=== PATIENT | female | born 1960 | race Caucasian/White ===

== ENCOUNTER 2022-12-03 12:28 | Inpatient (IN) ==
[2022-12-03 13:24] LABS: Basophils # (auto) 0.05 K/uL (0-0.2); Basophils % (auto) 0.4 %; Eosinophils # (auto) 0.07 K/uL (0-0.50); Eosinophils % (auto) 0.6 %; Hematocrit (blood only) 44.1 % (37.0-47.0); Hemoglobin 14.4 g/dl (12.0-16.0); Immature Granulocytes # (auto) 0.04 K/uL (0.01-0.20); Immature Granulocytes % (auto) 0.3 %; Lymphocytes # (auto) 2.08 K/uL (1.2-3.4); Lymphocytes % (auto) 16.7 %; Mean Corpuscular Hemoglobin 28.2 pg (25.0-34.0); Mean Corpuscular Hgb Conc 32.7 g/dL (32.0-36.0); Mean Corpuscular Volume 86.3 fL (80.0-100.0); Mean Platelet Volume 11.6 fL (9.4-12.4); Monocytes # (auto) 0.96 K/uL (0.11-0.59); Monocytes % (auto) 7.7 %; Neutrophils # (auto) 9.23 K/uL (1.40-6.50); Neutrophils % (auto) 74.3 %; Platelet Count 218 K/uL (130-400); RDW Coefficient of Variation 14.9 % (11.5-14.5); RDW Standard Deviation 46.8 fL (36.4-46.3); Red Blood Count 5.11 M/uL (4.20-5.40); White Blood Count 12.43 K/ul (4.8-10.8)
--- NOTE | 2022-12-03 13:40 | XRay Report ---
XR shoulder RT min 2V routine HISTORY: 62 years-old Female R shoulder pain acute pain of the right shoulder COMPARISON: Chest radiograph of same day TECHNIQUE: 3 views of the right shoulder FINDINGS: Moderate glenohumeral and AC joint osteoarthritis. No acute fracture, dislocation or opaque foreign b lalita. Cardiomegaly. IMPRESSION: No acute fracture or dislocation. ACT 112: Negative or not required by law. The above report was generated using voice recognition software. It may contain grammatical, syntax o r spelling errors. Electronically signed by: Zane Candelario M.D. 12/03/2022 1:39 PM
--- NOTE | 2022-12-03 13:41 | XRay Report ---
XR chest 1V portable HISTORY: Chest pain, nonspecific COMPARISON: Chest 08/15/2012. FINDINGS: No pneumothorax. No pleural effusions. The cardiac silhouette is borderline enlarged. This remains unchanged. Hazy appearance to lung bases is likely due to overlapping soft tissue. Otherwise, no focal lung consolidations to suggest a pneumonia. No evidence for pulmonary edema. There are old, healed right anterior rib fractures noted. IMPRESSION: No acute process. ACT 112: Negative or not required by law. Electronically signed by: Christopher Wells M.D. 12/03/2022 1:40 PM
[2022-12-03 13:49] LABS: Anion Gap 6 (3-11); Blood Urea Nitrogen 7 mg/dl (6-23); Calcium 9.5 mg/dl (8.6-10.3); Carbon Dioxide 26 mmol/L (21-32); Chloride 104 mmol/L (98-107); Creatinine Clr Calc Pharmacy 96.5 ml/min; Est GFR (African American) 83.9 ml/min; Est GFR (Non-African American) 72.4 ml/min; Glucose 105 mg/dl (70-99(Fasting)); Lipase 10 U/L (11-82); Sodium 136 mmol/L (136-145)
--- NOTE | 2022-12-03 15:10 | Emergency Department Note ---
History of Present Illness General Chief complaint: Arrhythmia/Palpitations Stated complaint: PALPITATIONS,DOC REF Time Seen by Provider: 12/03/22 12:38 History of Present Illness Provider complaint: Right-sided chest and arm pain Onset (ago): week(s) 1 62-year-old female presents emergency department with right-sided arm and right- sided chest pain. 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 She states her pain is worse with lifting the baby or lifting heavy things. She does report occasional shortness of breath. No current chest pain or shortness of breath. No left-sided arm pain. Patient reports that putting ice and a TENS device over her right shoulder area improves her symptoms. No recent travel. No exogenous hormone usage. No hemoptysis. No recent injuries or traumas. Patient states she went to go see her PCP about this who did an EKG and was concerned with this finding so sent her here out of caution to make sure everything with her heart was okay. Home Medications Medication Instructions Recorded Confirmed Type promethazine 25 mg tablet 25 mg PO TID PRN nausea and 08/03/22 12/03/22 Rx vomiting #30 tabs acetaminophen 500 mg tablet 1,000 mg PO DIRECTED PRN 12/03/22 12/03/22 History (Tylenol Extra Strength) PAIN/FEVER Allergies Allergy/AdvReac Type Severity Reaction Status Date / Time No Known Allergies Allergy Verified 12/03/22 15:21 Past Med/Surg History Medical History Ulcerative colitis Surgical History S/P cholecystectomy S/P complete hysterectomy S/P tonsillectomy Family History Grandmother (Maternal) Breast cancer Uncle Myocardial infarction Other Arthritis Asthma Cancer Hypertension Obstructive sleep apnea Urticaria Denies family history of Ovarian cancer Prostate cancer Colorectal cancer Social History Smoking Status: Current every day smoker Tobacco Type: Cigarettes Do You Dip or Chew Tobacco: No; Hx Alcohol Use: No Hx Substance Use: No Preferred Language: Sri Lankan marital status: Current Living Situation: Spouse current occupational status: disabled Feels Safe at Home: Yes Childhood Exposure to Second-Hand Smoke: Yes Dental Care, Regularly: No Physical Activity Frequency: Does not Exercise Seatbelt Use: always Sunscreen Use: Yes Physical Exam Vital Signs Vital Signs - 24 hr 12/03/22 12:33 12/03/22 12:53 12/03/22 13:01 Temperature 36.9 C Temperature Source Temporal Artery Scan Pulse Rate 84 79 Pulse Rate [Right Finger] Respiratory Rate 18 16 Respiratory Effort / Characteristics Non-Labored Spontaneous Respiratory Depth Normal Respiratory Pattern Regular Blood Pressure 170/96 H Blood Pressure [Right Arm] Blood Pressure Mean 120 Blood Pressure Mean [Right Arm] Pulse Oximetry 94 98 Oxygen Delivery Method Room Air Room Air Sepsis Recent Fever Within 48 Hours No Sepsis New/Unexplained Change in Mental Status N/A Sepsis Action Taken by Nursing No Action Required 12/03/22 14:04 12/03/22 15:00 12/03/22 16:28 Temperature Temperature Source Pulse Rate Pulse Rate [Right Finger] 82 77 84 Respiratory Rate 20 16 22 Respiratory Effort / Characteristics Non-Labored Non-Labored Respiratory Depth Normal Normal Respiratory Pattern Blood Pressure Blood Pressure [Right Arm] 174/107 H 167/117 H 151/108 H Blood Pressure Mean Blood Pressure Mean [Right Arm] 129 133 122 Pulse Oximetry 95 94 94 Oxygen Delivery Method Room Air Room Air Sepsis Recent Fever Within 48 Hours Sepsis New/Unexplained Change in Mental Status Sepsis Action Taken by Nursing Physical Exam HENT: Exam performed. -Head: Normocephalic and atraumatic. -Right Ear: External ear normal. No mastoid erythema -Left Ear: External ear normal. No mastoid erythema EYES: Conjunctivae and EOM are normal. Right eye exhibits no discharge. Left eye exhibits no discharge. No scleral icterus. NECK: Normal range of motion. Neck supple. No JVD present. No spinous process tenderness present. No tracheal deviation and normal range of motion present. CV: Normal rate, regular rhythm, normal heart sounds and intact distal pulses. There is no peripheral edema. Palpable radial pulses bue. PULM/CHEST: Effort normal and breath sounds normal. No respiratory distress. No stridor. She has no wheezes. She has no rales. -Chest Wall: She exhibits no tenderness. No pain on palpation of the right chest or right shoulder. No pain with movement of the right upper extremity. ABD: The abdomen is soft. There is no tenderness. There is no rebound, no guarding. MUSC/SKEL: Normal range of motion. There is no peripheral edema, tenderness or deformity. LYMPH: No cervical adenopathy. NEURO: Motor and sensation grossly intact. SKIN: Skin is warm and dry. She is not diaphoretic. PSYCH: She has a normal mood and affect. Behavior is normal. Judgment and thought content normal. Course Course 1238: The patient was evaluated in room B12. A complete history and physical exam was performed Cardiac monitoring: An order was placed for continuous cardiac monitoring. The monitor shows a rate of 80 with sinus rhythm interpreted by az 1352: Patient does have a new left bundle branch block and there are no EKGs in our system to compare to. Patient's troponin is elevated. Patient denies any chest pain or difficulty breathing at this time. Discussed the patient's case with Dr. Pimentel interventional cardiology on-call. He reviewed the patient's EKG he agrees that the patient should be admitted and no heart alert should be called at this time. He states that there are no contraindications to start the patient on heparin. D-dimer coagulation studies repeat troponin and potassium are still pending on the patient. 1600: Vital signs stable. Patient reporting no chest pain at this time. D- dimer within normal limits. Potassium within normal limits. Delta troponin is elevated. Patient be started on heparin and admitted to the [facility] team. Administered Medications Heparin Sodium/Dextrose (Heparin Sodium/Dextrose) 25,000 units in 500 mls @ 20 mls/hr IV .Q24H [facility]; Protocol Stop: 01/02/23 15:59 Last Admin: 12/03/22 16:36 Dose: 1,000 units/hr, 20 mls/hr Documented By: TYRONE Co-signed By: JAC Discontinued Medications Aspirin (Aspirin 81 Mg Chew) 324 mg PO NOW STA Stop: 12/03/22 15:53 Last Admin: 12/03/22 16:27 Dose: 324 mg Documented By: TYRONE Heparin Sodium (Porcine) (Heparin Sod (Porcine) 1000 Unit/Ml) 1 units IV NOW ON E Stop: 12/03/22 15:57 Last Admin: 12/03/22 16:35 Dose: 4,000 units Documented By: TYRONE Co-signed By: JAC Heparin Sodium/Dextrose (Heparin Iv Adult Wt-Based Low-Dose With Bolus Protocol) 1 each IV NOW STA; Protocol Stop: 12/03/22 15:42 Last Admin: 12/03/22 16:40 Dose: Not Given Documented By: NRB Critical Care Time Critical Care Time: Yes Total Critical Care Time: 60 I have personally spent greater than 60 minutes of critical care time in the direct management of this patient. This includes bedside care, interpretation of diagnostic studies, and testing, discussion with consultants, patient, and family members, and other required patient management activities. This 60 minutes is in excess of all separately billable procedures. Medical Decision Making Medical Records Attestation: I reviewed the patient's medical records. No previous EKGs on our records. Laboratory Data Attestation: I reviewed the patient's lab results. 12/03/22 12:45 12/03/22 12:45 Lab Results 12/03/22 12/03/22 12/03/22 Range/Units 12:45 12:45 12:45 WBC 12.43 H (4.8-10.8) K/ul RBC 5.11 (4.20-5.40) M/uL Hgb 14.4 (12.0-16.0) g/dl Hct 44.1 (37.0-47.0) % MCV 86.3 (80.0-100.0) fL MCH 28.2 (25.0-34.0) pg MCHC 32.7 (32.0-36.0) g/dL RDW Std Deviation 46.8 H (36.4-46.3) fL RDW Coeff of Essie 14.9 H (11.5-14.5) % Plt Count 218 (130-400) K/uL MPV 11.6 (9.4-12.4) fL Immature Gran % (Auto) 0.3 % Neut % (Auto) 74.3 % Lymph % (Auto) 16.7 % Emanuel % (Auto) 7.7 % Eos % (Auto) 0.6 % Baso % (Auto) 0.4 % Neut # (Auto) 9.23 H (1.40-6.50) K/uL Lymph # (Auto) 2.08 (1.2-3.4) K/uL Emanuel # (Auto) 0.96 H (0.11-0.59) K/uL Eos # (Auto) 0.07 (0-0.50) K/uL Baso # (Auto) 0.05 (0-0.2) K/uL Immature Gran # (Auto) 0.04 (0.01-0.20) K/uL PT Cancelled INR Cancelled APTT Cancelled PTT Ratio Cancelled D-Dimer Cancelled Sodium 136 (136-145) mmol/L Potassium TNP Chloride 104 (98-107) mmol/L Carbon Dioxide 26 (21-32) mmol/L Anion Gap 6 (3-11) BUN 7 (6-23) mg/dl Creatinine 0.87 (0.6-1.2) mg/dl Est Cr Clr Drug Dosing 96.5 ml/min Est GFR ( Amer) 83.9 ml/min Est GFR (Non-Af Amer) 72.4 ml/min BUN/Creatinine Ratio 8.0 L (10-20) Glucose 105 H (70-99(Fasting)) mg/dl Calcium 9.5 (8.6-10.3) mg/dl Troponin I High Sens 4399.0 H* (0-14) pg/ml Lipase 10 L (11-82) U/L SARS-CoV-2, RNA, NAAT (NEGATIVE) 12/03/22 12/03/22 12/03/22 Range/Units 12:55 14:25 14:25 WBC (4.8-10.8) K/ul RBC (4.20-5.40) M/uL Hgb (12.0-16.0) g/dl Hct (37.0-47.0) % MCV (80.0-100.0) fL MCH (25.0-34.0) pg MCHC (32.0-36.0) g/dL RDW Std Deviation (36.4-46.3) fL RDW Coeff of Essie (11.5-14.5) % Plt Count (130-400) K/uL MPV (9.4-12.4) fL Immature Gran % (Auto) % Neut % (Auto) % Lymph % (Auto) % Emanuel % (Auto) % Eos % (Auto) % Baso % (Auto) % Neut # (Auto) (1.40-6.50) K/uL Lymph # (Auto) (1.2-3.4) K/uL Emanuel # (Auto) (0.11-0.59) K/uL Eos # (Auto) (0-0.50) K/uL Baso # (Auto) (0-0.2) K/uL Immature Gran # (Auto) (0.01-0.20) K/uL PT 11.2 INR 1.0 APTT 31.2 H PTT Ratio 1.1 D-Dimer 280 Sodium (136-145) mmol/L Potassium 3.7 Chloride (98-107) mmol/L Carbon Dioxide (21-32) mmol/L Anion Gap (3-11) BUN (6-23) mg/dl Creatinine (0.6-1.2) mg/dl Est Cr Clr Drug Dosing ml/min Est GFR ( Amer) ml/min Est GFR (Non-Af Amer) ml/min BUN/Creatinine Ratio (10-20) Glucose (70-99(Fasting)) mg/dl Calcium (8.6-10.3) mg/dl Troponin I High Sens 5651.7 H* D (0-14) pg/ml Lipase (11-82) U/L SARS-CoV-2, RNA, NAAT NEGATIVE (NEGATIVE) Imaging Data Attestation: I personally reviewed and interpreted this imaging study as follows: My Impression: Chest x-ray negative. Airway clear. No pneumothorax. No consolidation. No cardiomegaly or cephalization.. No free air under the diaphragm. No fractures of the skeletal structures. Radiologist's Impression: Chest X-Ray 12/03/22 12:52 XR chest 1V portable HISTORY: Chest pain, nonspecific COMPARISON: Chest 08/15/2012. FINDINGS: No pneumothorax. No pleural effusions. The cardiac silhouette is borderline enlarged. This remains unchanged. Hazy appearance to lung bases is likely due to overlapping soft tissue. Otherwise, no focal lung consolidations to suggest a pneumonia. No evidence for pulmonary edema. There are old, healed right anterior rib fractures noted. IMPRESSION: No acute process. ACT 112: Negative or not required by law. Electronically signed by: Christopher Wells M.D. 12/03/2022 1:40 PM Shoulder X-Ray 12/03/22 12:53 XR shoulder RT min 2V routine HISTORY: 62 years-old Female R shoulder pain acute pain of the right shoulder COMPARISON: Chest radiograph of same day TECHNIQUE: 3 views of the right shoulder FINDINGS: Moderate glenohumeral and AC joint osteoarthritis. No acute fracture, dislocation or opaque foreign body. Cardiomegaly. IMPRESSION: No acute fracture or dislocation. ACT 112: Negative or not required by law. The above report was generated using voice recognition software. It may contain grammatical, syntax or spelling errors. Electronically signed by: Zane Candelario M.D. 12/03/2022 1:39 PM ECG Data Attestation: I personally reviewed and interpreted this ECG as follows: Additional Comments: Sinus rhythm with a rate of 82. DE 152 QRS 160 QTc 523. Left bundle branch block present. sgarbosa negative. No significant change from the EKG done in the patient's PCPs office today at 1139. [facility] Narrative 1238: The patient was evaluated in room B12. A complete history and physical exam was performed Cardiac monitoring: An order was placed for continuous cardiac monitoring. The monitor shows a rate of 80 with sinus rhythm interpreted by me 1352: Patient does have a new left bundle branch block and there are no EKGs in our system to compare to. Patient's troponin is elevated. Patient denies any chest pain or difficulty breathing at this time. Discussed the patient's case with Dr. Pimentel interventional cardiology on-call. He reviewed the patient's EKG he agrees that the patient should be admitted and no heart alert should be called at this time. He states that there are no contraindications to start the patient on heparin. D-dimer coagulation studies repeat troponin and potassium are still pending on the patient. 1600: Vital signs stable. Patient reporting no chest pain at this time. D- dimer within normal limits. Potassium within normal limits. Delta troponin is elevated. Patient be started on heparin and admitted to the [facility] team. Impression & Plan Non-ST elevation MT (NSTEMI) Discharge Plan Visit Data Chief Complaint: Arrhythmia/Palpitations Stated Complaint: PALPITATIONS,DOC REF ED Provider: Zoran North Discharge Problem: Non-ST elevation MT (NSTEMI) Patient Disposition: Admitted As Inpatient Discharge Instructions Interventions: ED Discharge Assessment Last Done: 12/03/22 17:46 Forms Stand Alone Forms: My [facility] Prescriptions Prescriptions: No Action promethazine 25 mg tablet 25 mg PO TID PRN (Reason: nausea and vomiting) Qty: 30 0RF acetaminophen [Tylenol Extra Strength] 500 mg Tablet 1,000 mg PO DIRECTED PRN (Reason: PAIN/FEVER) Referrals Referrals: Margoth Longoria MD [Primary Care Provider] -
[2022-12-03 15:14] LABS: Potassium 3.7 mmol/L (3.5-5.1)
[2022-12-03 15:25] LABS: D Dimer 280 ug/L FEU (0-500); Partial Thromboplastin Ratio 1.1; Partial Thromboplastin Time 31.2 Seconds (21.0-31.0); Prothrombin Time 11.2 Seconds (9.0-12.0); Troponin I High Sensitivity 5651.7 pg/ml (0-14)
[2022-12-03] MEDS ORDERED: Heparin IV Adult Wt-Based Low-Dose WITH Bolus Protocol IV STA (15:41)
[2022-12-03] MEDS ORDERED: ASPIRIN 81 MG CHEW PO STA (15:52)
[2022-12-03] MEDS ORDERED: HEPARIN SOD (PORCINE) 1000 UNIT/ML IV ONE (15:56)
--- NOTE | 2022-12-03 16:24 | History & Physical Report ---
Date of Service December 03, 2022 Assessment & Plan (1) Non-ST elevation UT (NSTEMI): Plan: Atypical symptoms and not clear right shoulder/neck pain is due to this. Radial pulses equal b/l and d-dimer negative and currently pain free therefore do not suspect PE / dissection. Suspect event is more related to her shortness of breath for the last 2 days. Possible myocarditis, however no enlarged heart on CXR to suggest pericardial effusion and symptoms atypical for this in addition. ASA 324 mg PO now then 81mg PO daily IV heparin low dose with bolus Start metoprolol 25mg PO BID NPO after midnight HbA1C and lipid panel in AM TTE Consult cardiology (2) Ulcerative colitis: Plan: Reports none of her current symptoms of this (3) Obstructive sleep apnea: Plan: Does not use CPAP at home, refuses here Plan VTE Prophylaxis - IV heparin Diet - heart healthy, NPO after midnight Disposition - observation status to PCU Admission and Anticipated Discharge Date Admission Date: December 03, 2022 History of Present Illness Chief Complaint: Right shoulder pain, back pain, shortness of breath, new LBBB Primary Care Provider: Margoth Longoria MD Elaine Vargas is a 62 year old female who presents to the ER with shortness of breath and right shoulder/arm pain with left bundle branch block on acute care EKG. 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 Worse on palpation. No worse on exertion, in fact she mainly notices it at rest. Occurs randomly at rest lasting for 15 minutes at a time then resolves spontaneously for 30 minutes prior to another episode. Using ice and heat with limited usefulness. For the last 2 days she has been becoming increasingly short of breath on exertion with more upper back pain. She denies any chest pain although noted in PCP note that she had heartburn-like chest pain that resolved 2 days ago. Associated nausea. She went to her PCP office today and EKG showed LBBB and given her symptoms she was advised to go to the ER. She declined EMS transport. Initial high sensitivity troponin in the ER 4399 which increased to 5651.7 on recheck. She is currently symptom free. Chronic cough unchanged. No new nasal congestion, sinus pain, abdominal pain, vomiting, change in bowels, melena, hematochezia, urinary symptoms. Regarding her CPAP she has been off this since a recall and declines CPAP use here. Increased cardiac risk with smoking history, RADHA, morbid obesity and ulcerative colitis. Never had a stroke or heart attack previously. Allergies Allergy/AdvReac Type Severity Reaction Status Date / Time No Known Allergies Allergy Verified 12/03/22 15:21 Home Medications Medication Instructions Recorded Confirmed Type promethazine 25 mg tablet 25 mg PO TID PRN nausea and 08/03/22 12/03/22 Rx vomiting #30 tabs acetaminophen 500 mg tablet 1,000 mg PO DIRECTED PRN 12/03/22 12/03/22 History (Tylenol Extra Strength) PAIN/FEVER Past Med/Surg History Medical History Obstructive sleep apnea Ulcerative colitis Surgical History S/P cholecystectomy S/P complete hysterectomy S/P tonsillectomy Family History Grandmother (Maternal) Breast cancer Uncle Myocardial infarction Other Arthritis Asthma Cancer Hypertension Obstructive sleep apnea Urticaria Denies family history of Ovarian cancer Prostate cancer Colorectal cancer Social History Smoking Status: Current every day smoker Tobacco Type: Cigarettes Cigarettes Per Day: 1 pack per day; Smoking End Date: 12/01/22; Do You Dip or Chew Tobacco: No; Hx Alcohol Use: No Hx Substance Use: No Preferred Language: Telugu Communication Ability: Effective Family Consumer Science Teacher Required: No Beliefs That Will Affect Care: None marital status: Current Living Situation: Family current occupational status: disabled Other Information That Helps Us Care for You: No Feels Safe at Home: Yes Safety Concerns: Feels Safe At This Time Childhood Exposure to Second-Hand Smoke: Yes Dental Care, Regularly: No Physical Activity Frequency: Does not Exercise Seatbelt Use: always Sunscreen Use: Yes Assistive Devices: Denture - Upper, Denture - Lower and Glasses Review of Systems Review of Systems: All systems reviewed & are unremarkable except as noted in HPI & below Physical Exam Constitutional: WD/WN, vitals as above Eyes: PERRL, conjunctivae normal, anicteric sclerae ENMT: external ear and nose normal, oropharynx normal Neck: trachea midline, no thyromegaly Respiratory: normal respiratory effort, lungs clear to auscultation Cardiovascular: RRR, no murmur, no edema Vessels: normal peripheral pulses Extremities: normal capillary refill and + pedal edema (trace pitting equal b/l); no calf tenderness Gastrointestinal (Abdomen): normal bowel sounds, soft, nontender, no hepatosplenomegaly Musculoskeletal: Right trapezius muscle pain on palpation, especially right neck No central back tenderness No shoulder joint line tenderness. Full ROM right shoulder without pain and no motor deficit Skin: no rashes, warm and dry Neurologic: moves all extremities and awake; not confused Psychiatric: A+Ox3, euthymic affect Results & Data Results & Data Vital Signs (Past 12 Hours) Vital Signs Temp Pulse Pulse Resp BP BP Pulse Ox 12/03/22 15:00 77 16 167/117 H 94 12/03/22 14:04 82 20 174/107 H 95 12/03/22 13:01 79 12/03/22 12:53 16 98 12/03/22 12:33 36.9 C 84 18 170/96 H 94 O2 Del Method 12/03/22 15:00 12/03/22 14:04 Room Air 12/03/22 13:01 12/03/22 12:53 Room Air 12/03/22 12:33 Room Air Laboratory Results Abnormal lab results 12/03/22 12/03/22 12/03/22 Range/Units 12:45 12:45 14:25 WBC 12.43 H (4.8-10.8) K/ul RDW Std Deviation 46.8 H (36.4-46.3) fL RDW Coeff of Sesie 14.9 H (11.5-14.5) % Neut # (Auto) 9.23 H (1.40-6.50) K/uL Mckean # (Auto) 0.96 H (0.11-0.59) K/uL APTT (21.0-31.0) Seconds BUN/Creatinine Ratio 8.0 L (10-20) Glucose 105 H (70-99(Fasting)) mg/dl Troponin I High Sens 4399.0 H* 5651.7 H* D (0-14) pg/ml Lipase 10 L (11-82) U/L 12/03/22 Range/Units 14:25 WBC (4.8-10.8) K/ul RDW Std Deviation (36.4-46.3) fL RDW Coeff of Essie (11.5-14.5) % Neut # (Auto) (1.40-6.50) K/uL Mckean # (Auto) (0.11-0.59) K/uL APTT 31.2 H (21.0-31.0) Seconds BUN/Creatinine Ratio (10-20) Glucose (70-99(Fasting)) mg/dl Troponin I High Sens (0-14) pg/ml Lipase (11-82) U/L Diagnostic Findings XR chest 1V portable HISTORY: Chest pain, nonspecific COMPARISON: Chest 08/15/2012. FINDINGS: No pneumothorax. No pleural effusions. The cardiac silhouette is borderline enlarged. This remains unchanged. Hazy appearance to lung bases is likely due to overlapping soft tissue. Otherwise, no focal lung consolidations to suggest a pneumonia. No evidence for pulmonary edema. There are old, healed right anterior rib fractures noted. IMPRESSION: No acute process. XR shoulder RT min 2V routine HISTORY: 62 years-old Female R shoulder pain acute pain of the right shoulder COMPARISON: Chest radiograph of same day TECHNIQUE: 3 views of the right shoulder FINDINGS: Moderate glenohumeral and AC joint osteoarthritis. No acute fracture, dislocation or opaque foreign body. Cardiomegaly. IMPRESSION: No acute fracture or dislocation. Medications Administered ER Medications Given: ASA 324mg PO IV heparin low dose with bolus ECG Rate (beats per minute): 82 Rhythm: normal sinus Findings: + LBBB and + left axis deviation Comparison ECG Date: no prior available Code Status & VTE Plan Code Status Full VTE Prophylaxis Plan VTE Prophylaxis will be ordered: Yes PG Care Time/CCT Total # of Minutes Spent Total Time Spent with Patient: Total time spent is greater than 50% in coordination of care (as documented) at patient's floor/unit and/or counseling patient: Coding Level of Care Code 15760 INT INP/OBS CARE 3/75MIN Diagnoses Non-ST elevation UT (NSTEMI) I21.4 Ulcerative colitis K51.90 Obstructive sleep apnea G47.33
[2022-12-03] MEDS: HEPARIN SODIUM/DEXTROSE 25,000 UNITS/500 ML BAG IV SCH (16:36)
[2022-12-03] MEDS ORDERED: NITROGLYCERIN SL 0.4 MG/TAB TAB SL PRN (18:41)
[2022-12-03] MEDS ORDERED: ACETAMINOPHEN 325 MG TAB PO PRN (18:41)
[2022-12-03] MEDS ORDERED: ONDANSETRON INJ 2 MG/ML 2 ML VIAL IV PRN (18:41)
[2022-12-03 18:56] LABS: Magnesium 2.1 mg/dl (1.7-2.4)
[2022-12-03] MEDS: Heparin IV Adult Wt-Based Low-Dose WITH Bolus Protocol IV SCH (19:29)
[2022-12-03] MEDS ORDERED: POTASSIUM CHLORIDE CRTAB 20 MEQ TABCR PO STA (19:35)
[2022-12-03] MEDS: METOPROLOL TARTRATE 25 MG TAB PO SCH (20:26)
[2022-12-04 00:02] LABS: Partial Thromboplastin Ratio 1.4
[2022-12-04 02:13] LABS: Basophils # (auto) 0.04 K/uL (0-0.2); Basophils % (auto) 0.4 %; Eosinophils # (auto) 0.11 K/uL (0-0.50); Eosinophils % (auto) 1.2 %; Hemoglobin 12.7 g/dl (12.0-16.0); Immature Granulocytes # (auto) 0.01 K/uL (0.01-0.20); Immature Granulocytes % (auto) 0.1 %; Lymphocytes # (auto) 2.34 K/uL (1.2-3.4); Mean Corpuscular Hemoglobin 28.4 pg (25.0-34.0); Mean Corpuscular Hgb Conc 33.4 g/dL (32.0-36.0); Mean Platelet Volume 11.3 fL (9.4-12.4); Monocytes # (auto) 0.75 K/uL (0.11-0.59); Monocytes % (auto) 8.3 %; Neutrophils # (auto) 5.76 K/uL (1.40-6.50); Platelet Count 182 K/uL (130-400); Red Blood Count 4.47 M/uL (4.20-5.40); White Blood Count 9.01 K/ul (4.8-10.8)
[2022-12-04 02:26] LABS: BUN Creatinine Ratio 12.8 (10-20); Calcium 8.6 mg/dl (8.6-10.3); Chol HDL Ratio 4.8 (0-5); Creatinine Clr Calc Pharmacy 97.6 ml/min; Est GFR (African American) 85.1 ml/min; Est GFR (Non-African American) 73.4 ml/min; Potassium 3.7 mmol/L (3.5-5.1)
[2022-12-04] MEDS: Heparin IV Adult Wt-Based Low-Dose WITH Bolus Protocol IV SCH ×2 (07:12→07:20)
[2022-12-04 07:17] LABS: Partial Thromboplastin Ratio 1.4; Partial Thromboplastin Time 39.7 Seconds (21.0-31.0)
--- NOTE | 2022-12-04 09:03 | Hospitalist Progress Note ---
Date of Service December 04, 2022 Assessment & Plan (1) Non-ST elevation MS (NSTEMI): Plan: Atypical symptoms and not clear right shoulder/neck pain is due to this. Radial pulses equal b/l and d-dimer negative and currently pain free therefore do not suspect PE / dissection. Suspect event is more related to her shortness of breath for the last 2 days. Possible myocarditis, however no enlarged heart on CXR to suggest pericardial effusion and symptoms atypical for this in addition. ASA 324 mg PO now then 81mg PO daily IV heparin low dose with bolus Started metoprolol 25mg PO BID NPO for p[osssible heart cath HbA1C and lipid panel in AM TTE, results are pending Consult cardiology, consider heart catherization (2) Ulcerative colitis: Plan: Reports none of her current symptoms of this (3) Obstructive sleep apnea: Plan: Does not use CPAP at home, refuses here Plan VTE Prophylaxis - IV heparin Diet - heart healthy, NPO after midnight Disposition - observation status to PCU Admission and Anticipated Discharge Date Admission Date: December 03, 2022 Subjective Patient is having no further chest/shoulder discomfort, troponin did increase patient was continued on heparin awaiting cardiology consultation Troponin peaked at 6389 down to 4569 Physical Exam Physical Exam: Patient is awake without symptoms she has no point tenderness about her shoulder she has no chest wall tenderness her cardiac exam sounds regular there are no rubs her lungs are clear without wheezes or crackles Results & Data Results & Data Vital Signs (Past 12 Hours) Vital Signs Temp Pulse Pulse Resp BP Pulse Ox O2 Del Method 12/04/22 08:13 98.2 F 67 18 135/89 92 Room Air 12/04/22 07:40 64 12/04/22 03:04 98.1 F 67 18 107/73 92 Room Air 12/03/22 23:40 70 12/03/22 23:29 98.2 F 65 22 102/73 94 Room Air Laboratory Results Reviewed CBC Reviewed PRP Reviewed troponin PG Care Time/CCT Total # of Minutes Spent Total Time Spent with Patient: Total time spent is greater than 50% in coordination of care (as documented) at patient's floor/unit and/or counseling patient: Coding Level of Care Code 57961 SUB INP/OBS CARE 2/35MIN Diagnoses Non-ST elevation MS (NSTEMI) I21.4 Ulcerative colitis K51.90 Obstructive sleep apnea G47.33
[2022-12-04] MEDS: METOPROLOL TARTRATE 25 MG TAB PO SCH ×2 (09:27→20:51)
[2022-12-04] MEDS: ASPIRIN 81 MG ECTAB PO SCH (09:27)
[2022-12-04 14:02] LABS: Partial Thromboplastin Ratio 1.3; Partial Thromboplastin Time 36.7 Seconds (21.0-31.0)
[2022-12-04] MEDS: HEPARIN SODIUM/DEXTROSE 25,000 UNITS/500 ML BAG IV SCH (14:09)
[2022-12-04] MEDS ORDERED: niCARdipine HCL INJ 2.5 MG/ML 10 ML AMP ONE (15:06)
[2022-12-04] MEDS ORDERED: MIDAZOLAM HCL 1 MG/ML 2ML VIAL ONE ×2 (15:06→16:07)
[2022-12-04] MEDS ORDERED: HEPARIN (PORCINE) 1000 UNIT/ML 10 ML (CATH LAB USE ONLY) ONE (15:06)
[2022-12-04] MEDS ORDERED: fentaNYL citrate PF 100 MCG/2 ML VIAL ONE ×2 (15:06→16:50)
[2022-12-04] MEDS ORDERED: NITROGLYCERIN/D5W 100MCG/ML 20ML SYR ONE (15:07)
[2022-12-04] MEDS ORDERED: EPTIFIBATIDE 2 MG/ML 10 ML VIAL (CATH LAB USE ONLY) IV ONE ×2 (15:53→15:55)
[2022-12-04] MEDS ORDERED: EPTIFIBATIDE 0.75 MG/ML 75MG VIAL (CATH LAB USE ONLY) IV ONE (16:01)
[2022-12-04] MEDS ORDERED: TICAGRELOR 90 MG TAB ONE (16:53)
[2022-12-04] MEDS ORDERED: FUROSEMIDE 40 MG/4 ML VIAL IV ONE (16:56)
--- NOTE | 2022-12-04 17:08 | Pre Anesthesia Assessment ---
Date of Service December 04, 2022 Pre Sedation Assessment Vital Signs Temp Pulse Pulse Resp BP Pulse Ox O2 Del Method 12/04/22 15:19 59 L 12/04/22 08:30 Room Air 12/04/22 11:58 98.6 F 66 18 138/91 92 Room Air 12/04/22 08:13 98.2 F 67 18 135/89 92 Room Air 12/04/22 07:40 64 12/04/22 03:04 98.1 F 67 18 107/73 92 Room Air 12/03/22 23:40 70 12/03/22 18:57 83 12/03/22 23:29 98.2 F 65 22 102/73 94 Room Air 12/03/22 19:22 99.0 F 81 22 145/85 H 94 Room Air 12/03/22 19:16 98.4 F 84 18 171/117 H 92 Room Air 12/03/22 17:46 Room Air Cardiovascular RRR, no murmur, no edema Respiratory normal respiratory effort, lungs clear to auscultation Pre-Sedation Airway Assessment Smoking Status: Current every day smoker Hx Sleep Apnea: No Short, Thick Neck: No Thyromental Distance: > or= 3.5 Finger Breadths Oral Cavity: + WNL Mallampati Class: III ASA: ASA3 NPO Status Date of Last Intake of Fluids: 12/04/22 Time of Last Intake of Fluids: 08:00 Last Oral Intake of Fluids Comment: sip with meds Date of Last Intake of Solid Food: 12/03/22 Procedure Planning Contraindications for Sedation: none Current Medications Reviewed: Yes Notes The planned sedation has been discussed with the patient. Informed Consent was obtained. I have identified the patient, determined the appropriateness of sedation and have assessed the patient immediately prior to the procedure. All medicine(s) and interventions are by my order.
--- NOTE | 2022-12-04 17:09 | Post Anesthesia Assessment ---
Date of Service December 04, 2022 Post Sedation Assessment Vital Signs Temp Pulse Pulse Resp BP Pulse Ox O2 Del Method 12/04/22 15:19 59 L 12/04/22 08:30 Room Air 12/04/22 11:58 98.6 F 66 18 138/91 92 Room Air 12/04/22 08:13 98.2 F 67 18 135/89 92 Room Air 12/04/22 07:40 64 12/04/22 03:04 98.1 F 67 18 107/73 92 Room Air 12/03/22 23:40 70 12/03/22 18:57 83 12/03/22 23:29 98.2 F 65 22 102/73 94 Room Air 12/03/22 19:22 99.0 F 81 22 145/85 H 94 Room Air 12/03/22 19:16 98.4 F 84 18 171/117 H 92 Room Air 12/03/22 17:46 Room Air Recovery Score Activity: Moves 4 extremities Respiration: Deep Breath/Cough Circulation: +/-20% PreAnes Value Consciousness: Fully Awake Discharge Sedation Level of Care: Fast Track Phase II Post Sedation Plan On clinical assessment, the patient appears to have tolerated the sedation without complications. Patient is recovering as anticipated. Patient will continue to be monitored by nursing and may be discharged when sedation discharge criteria are met per below protocol. Upon Completions of procedure up to 15 minutes continue every 5 minute vital signs and the P.A.R. score; then discharge to a Phase I or Fast Track to Phase II per the following guidelines: * Discharge Patient to appropriate Phase II area if PAR is 8 or greater or return to pre- procedure baseline. The post - procedure orders will be as directed. * If PAR score is less than 8 or not return to pre-procedure baseline then patient will follow Phase I monitoring till PAR is reached for Phase II. The Phase I may be done in procedure room or may call to secure a Phase I area. * If naloxone or flumazenil are used for reversal, hold in Phase I for continued monitoring from when last reversal dose was given for a minimum of 6 0 minutes or longer pending the nurse and/or physician discretion of patient condition before discharge to Phase II. Please call the Sedation Physician to re-evaluate and complete post-note for discharge to Phase II area. Do NOT discharge from procedure sedation or Phase 1 until post- sedation evaluation note is complete by procedure /sedation MD Sedation Discharge Instructions to be given to the patient at discharge to home.
[2022-12-04] MEDS ORDERED: EPTIFIBATIDE BOLUS/DRIP IV STA (17:10)
--- NOTE | 2022-12-04 17:10 | Post Operative Brief Note ---
Cardiology Brief Post Op Date of Surgery December 04, 2022 Pre & Post Diagnosis Operation Date: 12/04/22 14:00 <No data on this case meets the specified criteria> Procedure Cardiac cath/PCI Tape Control Skin Or Spar Mill Operator Viral Pimentel MD Cutting Room Supervisor Estrada Estimated Blood Loss 20 Findings See Below 95% acute mid RCA with thrombus subtotal mid LAD occlusion with collaterals PCI of RCA with JESSE (4.0x34 [place]) PCI of mid LAD with 2 JESSE (2.75 x22, 2.25 x 30 [place]). Anesthesia Type RN Sedation Complications none Disposition Disposition: PCU Overlapping Procedure I was present for: the critical portions of procedure. I was immediately available: during the entire case. Back up surgeon: was not required during procedure.
[2022-12-04] MEDS ORDERED: EPTIFIBATIDE 75 MG/100 ML VIAL IV SCH (17:15)
--- NOTE | 2022-12-04 19:55 | Cardiac Catheterization ---
[facility] Data: [employer] Cardiac Status Clinical evaluation leading to the procedure CAD Presenation: Non STEMI Anginal Classification: CCS IV Diagnostic Physicians Name: Viral Pimentel MD Closure Device Recommendations: PCI without planned CABG Cardiac Cath Procedure Full Procedure Date December 04, 2022 Pre-Procedure Diagnosis Pre-Procedure Diagnosis: Non STEMI AUC Score AUC Score: 8 Post-Procedure Diagnosis Post-Procedure Diagnosis: Severe CAD, Successful PCI and Elevated Intracardiac Pressures Procedure(s) Performed Procedure(s) Performed: Coronary Angiography, Left Heart Cath, Drug Eluting Stent and IVUS Revival Clerk Viral Pimentel MD Parts Department Manager(s) Estrada Estimated Blood Loss Estimated Blood Loss: 25 Medication(s) Medication(s): Clopidogrel, Fentanyl, Heparin, Lidocaine 1%, Nicardipine, Nitroglycerin and Versed Summary of Findings Indication: NSTEMI Access: 6 Fr right radial artery Catheters: EBU 3.5 guide Findings: LM -normal caliber, no significant disease LAD -medium caliber, mild proximal disease, 95% earlymid stenosis followed by subtotal mid LAD occlusion, late mid to distal vessel with LUZ I flow antegrade and from left to left collaterals. Circumflex -medium caliber, no significant disease Ramusmedium caliber, 70% proximal stenosis RCA -dominant, large caliber, acute 95% mid RCA stenosis with heavy thrombus burden. Distal segment, RPDA, right posterior B branch without significant disease LVEDP -27 -- PCI of RCA-- Antithrombotic therapy: Heparin, Integrilin, clopidogrel Procedure: RCA cannulated with JR4 guide Pre-procedure flow LUZ 2-3 Office Assistance 50 wire passed across lesion into distal vessel Mid RCA lesion predilated with 2.5 compliant balloon With heavy thrombus burden and some initial evidence of downstream embolus started on IC Integrilin Dilated lesion stented with 4.0 x 34 mm [place] drug-eluting stent Stent post-dilated with 4.0 noncompliant balloon Downstream spasm, thrombus improved with IC vasodilators and IC Integrilin Post procedure LUZ 3 flow, stent well expanded with minimal residual stenosis and no apparent cardiac complications. PCI of LAD Left main cannulated with EBU 3.5 guide Office Assistance 50 wire navigated across subtotal mid LAD occlusion into distal vessel Diffuse mid LAD dilated with 2.0 balloon Castrejon IVUS catheter placed into mid LAD Pullback revealed diffuse mid segment disease with calcified stenosis at takeoff of first septal/diagonal. Proximal LAD, left main with no more than mild disease. Latemid LAD stented with 2.25 x 30 mm Jorge drug-eluting stent Stent postdilated with 2.5 NC Second JESSE (2.75 x 22 Jorge) placed from proximal segment to mid segment o verlapping proximal aspect of initial stent Stents postdilated with 3.0 NC IC vasodilators administered for spasm Repeat IVUS revealed well-expanded, well apposed stents with no apparent edge complications Post procedure angiography LUZ III flow through stents, stents well expanded, no apparent complications. Arterial Closure: TR band Summary: 1. Severe multi-vessel coronary artery disease -Acute 95% mid RCA with heavy thrombus Subtotal mid LAD occlusion with LUZ I distal LAD flow and faint left to left collaterals 70% proximal ramus 2. Elevated intracardiac filling pressure 3. Successful PCI of mid RCA with single drug-eluting stent (4.0 x 34 mm [place]). 4. Successful PCI of proximal to mid LAD with 2 overlapping drug-eluting stents (2.75 x 22, 2.25 x 30 mm [place]; postdilated with 3.0 NC). Recommendations: To PCU for continued monitoring Loaded with clopidogrel 600 mg in [employer] Continue Integrilin infusion for 4 hours post PCI for RCA thrombus Continue dual-antiplatelet therapy for at least 1 year Given 20 of IV Lasix in [employer] Member. Additional diuresis as needed Start GDMT for HFrEF Continue statin, and ASCVD risk factor modification Consult cardiac Rehab Plan for medical management of residual disease in ramus. If recurrent symptoms in the future PCI could be considered Hemodynamics Rest Ao:: 132/82/102 Final Ao: 124/79/95 LV: 131/27 Recommendations Recommendations: PCI without planned CABG Specimens Specimens: None Radiation Exposure (mGy) 4351 Contrast (mls) 150 Anesthesia Moderate 7739-7114 Procedural Complication(s) None Disposition PCU I attest to the content of the Intraoperative Record and any orders documented therein. Any exceptions are noted below. [facility] Card Cath Procedure Codes Cardiac Catheterization Procedure 1: Cardiovascular Cath Procedures: 00310 Coronaries and LHC (+/-LV) Therapeutic Services & Ancillary Procedure 1: Cardiovascular Tx and Anc Procedures: 49553 IV Ultrasound (Coronary or Graft) Moderate Sedation Procedure 1: Sedation/Anesthesia: 65760 Mod Sedation by the same physician;Init15 Min Child Age 5 & Up Procedure 2: Sedation/Anesthesia: 41689 Mod Sedation by the same physician; Ea [id number] Minutes Stenting Procedure 1: Cardiovascular Stent Procedures: 24960 Perc transluminal revascularization of acute sub/total occl, aMI Procedure 2: Cardiovascular Stent Procedures: 69913 Ea addl branch of a major coronary artery PG Care Time/CCT Total # of Minutes Spent Total Time Spent with Patient: Total time spent is greater than 50% in coordination of care (as documented) at patient's floor/unit and/or counseling patient:
[2022-12-04] MEDS: NITROGLYCERIN 2% OINTMENT 30GM TUBE EXT SCH (21:16)
--- NOTE | 2022-12-04 22:19 | Electrocardiogram Report ---
Test Reason : Blood Pressure : / mmHG Vent. Rate : 082 BPM Atrial Rate : 082 BPM P-R Int : 152 ms QRS Dur : 160 ms QT Int : 448 ms P-R-T Axes : -04 -48 122 degrees QTc Int : 523 ms Normal sinus rhythm Left axis deviation Left bundle branch block Abnormal ECG No previous ECGs available Confirmed by Jorge Peters ([id number]) on 12/04/2022 10:18:23 PM Referred By: Confirmed By:Jorge Peters
--- NOTE | 2022-12-04 23:05 | XCELERA ---
[id number] \\[id number]
[2022-12-04 23:10] LABS: Partial Thromboplastin Ratio 1.1; Partial Thromboplastin Time 30.8 Seconds (21.0-31.0)
--- NOTE | 2022-12-04 23:37 | Cardiology Consultation ---
Date of Consultation December 04, 2022 Assessment & Plan (1) Non-ST elevation CO (NSTEMI): Acute 95% mid RCAstatus post JESSE Subtotal mid LAD occlusionpost 2 JESSE Residual ramus disease 2. Ischemic cardiomyopathyEF 35 to 40% 3. HFrEF 4. Dyslipidemia 5. Ulcerative colitis 6. Left bundle branch block Patient here with high risk NSTEMI and new cardiomyopathy. Her atypical symptoms over the last few days appear to be her anginal equivalent. Now post successful multivessel PCI to RCA, LAD. Post procedure mild congestion improving after IV Lasix, Nitropaste. Plan to continue DAPT with aspirin, clopidogrel for 1 year. Started on high intensity statin On metoprololtransition to Toprol-XL on discharge. Wean off nitro. Start losartan, spironolactone tomorrow as BP allows. We will consider ARNI/SGLT2 as an outpatient Additional IV Lasix tomorrow if persistent shortness of breath. Likely home on maintenance oral Lasix We will follow History of Present Illness Attending Physician: Herbert Bethea MD History of Present Illness Mrs. Vargas is a very pleasant 62-year-old woman seen today in the setting of NSTEMI and new left bundle branch block. Patient states for the preceding 3 days has felt generally unwell. Describes feeling achy with right shoulder pain and worsening shortness of breath with normal exertion. Denies ever having significant chest pain. Presented to PCP where left bundle branch was noted on ECG. Referred to ED where initial HS TropI >4000 and trended up to greater than 6000. Echocardiogram today showed moderate LV dysfunction, EF 35 to 40% with akinetic apex and hypokinetic mid anterior/septal segments as well as inferior hypokinesis. Underwent cardiac catheterization today which revealed 95% acute mid RCA st enosis, subtotal mid LAD occlusion and 70% proximal ramus stenosis. Had PCI with single JESSE to the RCA and 2 overlapping JESSE to proximal to mid LAD. LVEDP 27 and received IV Lasix 20 mg x 1. Past medical history: Ulcerative colitis in remission, obstructive sleep apnea, reported hypertension off medications. Social history: Lives with her . 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 Active smoker since age 17. Currently 1 PPD Allergies Allergy/AdvReac Type Severity Reaction Status Date / Time No Known Allergies Allergy Verified 12/03/22 15:21 Home Medications Medication Instructions Recorded Confirmed Type promethazine 25 mg tablet 25 mg PO TID PRN nausea and 08/03/22 12/03/22 Rx vomiting #30 tabs acetaminophen 500 mg tablet 1,000 mg PO DIRECTED PRN 12/03/22 12/03/22 History (Tylenol Extra Strength) PAIN/FEVER Patient History Medical History Obstructive sleep apnea Ulcerative colitis Surgical History S/P cholecystectomy S/P complete hysterectomy S/P tonsillectomy Family History Grandmother (Maternal) Breast cancer Uncle Myocardial infarction Other Arthritis Asthma Cancer Hypertension Obstructive sleep apnea Urticaria Denies family history of Ovarian cancer Prostate cancer Colorectal cancer Social History Smoking Status: Current every day smoker Tobacco Type: Cigarettes Cigarettes Per Day: 1 pack per day; Smoking End Date: 12/01/22; Do You Dip or Chew Tobacco: No; Hx Alcohol Use: No Hx Substance Use: No Preferred Language: Ukrainian Communication Ability: Effective Ball Points Inspector Required: No Beliefs That Will Affect Care: None marital status: Current Living Situation: Family current occupational status: disabled Other Information That Helps Us Care for You: No Feels Safe at Home: Yes Safety Concerns: Feels Safe At This Time Childhood Exposure to Second-Hand Smoke: Yes Dental Care, Regularly: No Physical Activity Frequency: Does not Exercise Seatbelt Use: always Sunscreen Use: Yes Assistive Devices: None Review of Systems Review of Systems: All systems reviewed & are unremarkable except as noted in HPI & below Physical Exam Physical Exam: General: Comfortable, mildly tachypneic HEENT: Sclerae anicteric Lungs: Decreased breath sounds at bases Cardiac: Distant heart sounds, regular, no murmurs Vascular: Right radial artery access site with no ecchymosis, hematoma. Distal pulse and sensation intact. Abdomen: Soft, nontender Extremities: Well perfused, no peripheral edema Neuro: Nonfocal Psych: Alert orient x3, normal affect and mood Results & Data Vital Signs (Past 12 Hours) Vital Signs Temp Pulse Pulse Resp BP BP Pulse Ox 12/04/22 22:56 97.9 F 58 L 18 107/65 91 12/04/22 23:05 52 L 12/04/22 22:42 55 L 12/04/22 21:56 70 20 146/91 H 96 12/04/22 20:56 77 24 147/85 H 98 12/04/22 19:43 98.2 F 56 L 18 146/97 H 95 12/04/22 18:53 97.7 F 69 22 142/99 H 96 12/04/22 18:24 98.2 F 65 18 133/94 95 12/04/22 17:54 97.3 F L 72 18 154/115 H 96 12/04/22 17:54 69 12/04/22 17:39 97.7 F 68 18 131/91 93 12/04/22 17:24 97.3 F L 59 L 18 126/89 92 12/04/22 17:10 97.9 F 67 16 134/93 90 12/04/22 15:19 59 L 12/04/22 11:58 98.6 F 66 18 138/91 92 O2 Del Method 12/04/22 22:56 Room Air 12/04/22 23:05 12/04/22 22:42 12/04/22 21:56 Room Air 12/04/22 20:56 Room Air 12/04/22 19:43 Room Air 12/04/22 18:53 Room Air 12/04/22 18:24 Room Air 12/04/22 17:54 Room Air 12/04/22 17:54 12/04/22 17:39 Room Air 12/04/22 17:24 Room Air 12/04/22 17:10 Room Air 12/04/22 15:19 12/04/22 11:58 Room Air PG Care Time/CCT Total # of Minutes Spent Total Time Spent with Patient: Total time spent is greater than 50% in coordination of care (as documented) at patient's floor/unit and/or counseling patient: Coding Level of Care Code 02357 INT INP/OBS CARE 3/75MIN Diagnoses Non-ST elevation CO (NSTEMI) I21.4
[2022-12-05] MEDS: NITROGLYCERIN 2% OINTMENT 30GM TUBE EXT SCH ×2 (02:50→08:09)
[2022-12-05] MEDS: Heparin IV Adult Wt-Based Low-Dose WITH Bolus Protocol IV SCH (07:27)
[2022-12-05] MEDS: LOSARTAN POTASSIUM 25 MG TAB PO SCH (08:07)
[2022-12-05] MEDS: METOPROLOL TARTRATE 25 MG TAB PO SCH ×2 (08:07→20:57)
[2022-12-05] MEDS: TICAGRELOR 90 MG TAB PO SCH ×2 (08:08→20:57)
[2022-12-05] MEDS: ASPIRIN 81 MG ECTAB PO SCH (08:08)
[2022-12-05] MEDS: ATORVASTATIN 40 MG TAB PO SCH (08:09)
--- NOTE | 2022-12-05 12:42 | Cardiology Progress Note ---
Date of Service December 05, 2022 Assessment & Plan (1) Non-ST elevation PA (NSTEMI): Plan: Acute 95% mid RCAstatus post JESSE Subtotal mid LAD occlusionpost 2 JESSE Residual ramus disease 2. Ischemic cardiomyopathyEF 35 to 40% 3. HFrEF 4. Dyslipidemia 5. Ulcerative colitis 6. Left bundle branch block 7. Frequent PVCs/Bigeminy No recurrent anginal symptoms. No access site complications. Mild residual dyspnea but improved from last night. Difficult exam but minimal congestion Frequent ectopy on telemetry this morning. -- Repeat labs - supplement lytes as needed -- Additional IV lasix today. Record I/Os and daily weights -- Continue DAPT with aspirin, clopidogrel. With ulcerative colitis will likely discontinue ASA after 1+ month. -- Continue statin On metoprololtransition to Toprol-XL on discharge. On losartan. Start spironolactone pending lytes/BP. We will consider ARNI/SGLT2 as an outpatient -- Continue to monitor on telemetry today. Likely home tomorrow AM with f/up with me in 1 week. Admission and Anticipated Discharge Date Admission Date: December 04, 2022 Subjective No chest or shoulder pain today. Shortness of breath last night improved. Still with brief shortness of breath, with walking to bathroom. No recorded output after lasix yesterday. Weight unchanged. Tele reviewed -- frequent PVCs, bigeminy Review of Systems Review of Systems: All systems reviewed & are unremarkable except as noted in HPI & below Physical Exam Physical Exam: General: Comfortable HEENT: Sclerae anicteric Lungs: Minimally decreased at bases, no rales Cardiac: Distant heart sounds, regular with premature beats, no murmurs Vascular: Right radial artery access site with no ecchymosis, hematoma. Distal pulse and sensation intact. Abdomen: Soft, nontender Extremities: Well perfused, no peripheral edema Neuro: Nonfocal Psych: Alert orient x3, normal affect and mood Results & Data Vital Signs (Past 12 Hours) Vital Signs Temp Pulse Pulse Resp BP Pulse Ox O2 Del Method 12/05/22 11:51 98.1 F 67 20 121/83 95 Room Air 12/05/22 07:40 Room Air 12/05/22 08:00 72 12/05/22 08:05 97.7 F 71 16 143/83 H 93 Room Air 12/05/22 03:43 97.5 F L 58 L 18 104/69 96 Room Air 12/05/22 02:49 97.9 F 70 22 121/85 94 Room Air PG Care Time/CCT Total # of Minutes Spent Total Time Spent with Patient: Total time spent is greater than 50% in coordination of care (as documented) at patient's floor/unit and/or counseling patient: Coding Level of Care Code 29285 SUB INP/OBS CARE 3/50MIN Diagnoses Non-ST elevation PA (NSTEMI) I21.4
[2022-12-05 13:28] LABS: BUN Creatinine Ratio 20.5 (10-20); Creatinine Clr Calc Pharmacy 99.4 ml/min; Est GFR (African American) 82.8 ml/min; Est GFR (Non-African American) 71.4 ml/min; Potassium 3.8 mmol/L (3.5-5.1)
[2022-12-05] MEDS ORDERED: FUROSEMIDE INJ 20 MG/2 ML VIAL IV ONE (15:59)
--- NOTE | 2022-12-05 16:11 | Hospitalist Progress Note ---
Date of Service December 05, 2022 Assessment & Plan (1) Non-ST elevation [place] (NSTEMI): Plan: Atypical symptoms and not clear right shoulder/neck pain is due to this. Radial pulses equal b/l and d-dimer negative and currently pain free therefore do not suspect PE / dissection. Patient underwent cardiac catheterization on 12/04 she is found to have the need to have cardiac stents placed in her LAD x2 and RCA x1 there was heavy clot burden in the RCA there was a 70% ramus branch that was also noted but was not intervened upon. Guideline based medical therapy was recommended. Patient does have mild reduction in ejection fraction of 35 to 40% lipid panel shows total cholesterol of 164 LDL 104 HDL 34 TTE, results showed a depressed ejection fraction with severe hypokinetic to akinetic apical segments mild anterior anterior septal segments hypokinetic and inferior wall hypokinesis Guideline based therapy to include aspirin and Brilinta, atorvastatin, metoprolol, losartan Patient will need cardiac rehab on discharge will follow-up with interventional cardiology (2) Ulcerative colitis: Plan: Reports none of her current symptoms of this (3) Obstructive sleep apnea: Plan: Does not use CPAP at home, refuses here Plan VTE Prophylaxis - now will scd Admission and Anticipated Discharge Date Admission Date: December 04, 2022 Subjective Patient has no further symptoms of shoulder discomfort chest discomfort catheterization sites are clean dry and intact she feels weak and then tired but overall improved Physical Exam Physical Exam: Left wrist catheterization site is in good condition good distal pulses and capillary refill Cardiac exam is regular without any murmurs Lungs are clear Distal extremities are without edema Results & Data Results & Data Vital Signs (Past 12 Hours) Vital Signs Temp Pulse Pulse Resp BP Pulse Ox O2 Del Method 12/05/22 15:41 98.4 F 67 18 118/59 L 94 Room Air 12/05/22 11:51 98.1 F 67 20 121/83 95 Room Air 12/05/22 07:40 Room Air 12/05/22 08:00 72 12/05/22 08:05 97.7 F 71 16 143/83 H 93 Room Air Laboratory Results Reviewed CBC Reviewed BnP PG Care Time/CCT Total # of Minutes Spent Total Time Spent with Patient: Total time spent is greater than 50% in coordination of care (as documented) at patient's floor/unit and/or counseling patient: Coding Level of Care Code 88886 SUB INP/OBS CARE 50MIN Diagnoses Non-ST elevation [place] (NSTEMI) I21.4 Ulcerative colitis K51.90 Obstructive sleep apnea G47.33
[2022-12-06 06:22] LABS: Hemoglobin 12.7 g/dl (12.0-16.0); Mean Corpuscular Hemoglobin 27.8 pg (25.0-34.0); Mean Corpuscular Hgb Conc 32.6 g/dL (32.0-36.0); Mean Corpuscular Volume 85.3 fL (80.0-100.0); Mean Platelet Volume 11.4 fL (9.4-12.4); Platelet Count 184 K/uL (130-400); RDW Coefficient of Variation 14.8 % (11.5-14.5); RDW Standard Deviation 46.1 fL (36.4-46.3); Red Blood Count 4.57 M/uL (4.20-5.40); White Blood Count 8.04 K/ul (4.8-10.8)
[2022-12-06 06:39] LABS: Calcium 8.8 mg/dl (8.6-10.3); Creatinine Clr Calc Pharmacy 117.2 ml/min; Est GFR (African American) 102.1 ml/min; Est GFR (Non-African American) 88.1 ml/min; Magnesium 1.9 mg/dl (1.7-2.4); Potassium 3.6 mmol/L (3.5-5.1)
[2022-12-06] MEDS: ASPIRIN 81 MG ECTAB PO SCH (08:23)
[2022-12-06] MEDS: ATORVASTATIN 40 MG TAB PO SCH (08:23)
[2022-12-06] MEDS: METOPROLOL TARTRATE 25 MG TAB PO SCH (08:23)
[2022-12-06] MEDS: TICAGRELOR 90 MG TAB PO SCH (08:23)
[2022-12-06] MEDS: LOSARTAN POTASSIUM 25 MG TAB PO SCH (08:23)
[2022-12-06] MEDS ORDERED: CLOPIDOGREL BISULFATE 300 MG TAB PO STA (11:55)
--- NOTE | 2022-12-06 13:53 | Discharge Summary ---
Date of Service December 06, 2022 Admission HPI Per Admitting Provider Elaine Vargas is a 62 year old female who presents to the ER with shortness of breath and right shoulder/arm pain with left bundle branch block on acute care EKG. 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 Worse on palpation. No worse on exertion, in fact she mainly notices it at rest. Occurs randomly at rest lasting for 15 minutes at a time then resolves spontaneously for 30 minutes prior to another episode. Using ice and heat with limited usefulness. For the last 2 days she has been becoming increasingly short of breath on exertion with more upper back pain. She denies any chest pain although noted in PCP note that she had heartburn-like chest pain that resolved 2 days ago. Associated nausea. She went to her PCP office today and EKG showed LBBB and given her symptoms she was advised to go to the ER. She declined EMS transport. Initial high sensitivity troponin in the ER 4399 which increased to 5651.7 on recheck. She is currently symptom free. Chronic cough unchanged. No new nasal congestion, sinus pain, abdominal pain, vomiting, change in bowels, melena, hematochezia, urinary symptoms. Regarding her CPAP she has been off this since a recall and declines CPAP use here. Increased cardiac risk with smoking history, RADHA, morbid obesity and ulcerative colitis. Never had a stroke or heart attack previously. Principal Diagnosis NSTEMI Cardiac catheterization status post deployment of 3 stents in 2 arteries 1 stent RCA 2 stents LAD Systolic heart failure identified Discharge Exam Patient awake alert appropriate Card exam is regular Lungs are clear Catheterization site is clean dry and intact Discharge Data Allergies Allergy/AdvReac Type Severity Reaction Status Date / Time No Known Allergies Allergy Verified 12/03/22 15:21 Consultations 12/03/22 15:47 ED Decision to Admit Stat 12/03/22 18:41 Consult Cardiology Routine Procedures Performed Operation Date: 12/04/22 14:00 Actual Procedures p Cineradiography w/Routine Exam - Fermin Pimentel MD p Cath, Left with Cors and Vent - Fermin Pimentel MD s Drug Eluting Stent SGl Vessel - Fermin Pimentel MD s Drug Eluting Stent each ADDTL Vessel - Fermin Pimentel MD s IVUS Coronary Single Vessel - Fermin Pimentel MD Ordered Studies 12/04/22 13:43 CL Cath Imgs for PACS use only Routine 12/04/22 18:09 CL IVUS Coronary Single Vessel Routine Hospital Course (1) Non-ST elevation SC (NSTEMI): Atypical symptoms and not clear right shoulder/neck pain is due to this. Radial pulses equal b/l and d-dimer negative and currently pain free therefore do not suspect PE / dissection. Patient underwent cardiac catheterization on 12/04 she is found to have the need to have cardiac stents placed in her LAD x2 and RCA x1 there was heavy clot burden in the RCA there was a 70% ramus branch that was also noted but was not intervened upon. Guideline based medical therapy was recommended. Patient does have mild reduction in ejection fraction of 35 to 40% lipid panel shows total cholesterol of 164 LDL 104 HDL 34 TTE, results showed a depressed ejection fraction with severe hypokinetic to akinetic apical segments mild anterior anterior septal segments hypokinetic and inferior wall hypokinesis Guideline based therapy to include aspirin and Plavix, atorvastatin, metoprolol, losartan Patient will need cardiac rehab on discharge will follow-up with interventional cardiology (2) Ulcerative colitis: (3) Obstructive sleep apnea: Total Time Total Time Spent Total Time Spent (In Minutes): It required greater than 30 minutes to prepare this patient for discharge Discharge Plan Discharge Items Patient Disposition: Home - Self-Care Reason For Visit: NSTEMI Discharge Diagnosis: nstemi heart attack 3 cardiac stents placed heart muscle injury Activity: Per Instructions section Activity Comment: no intentional exercise until after cardiology follow up and cardiac rehab Non-emergency contact: Director Physical Call non-emergency contact if: your symptoms worsen Follow-up/Referrals: Margoth Longoria MD [Primary Care Provider] - Diet: Heart Healthy and Low Sodium (2gm) Addtl Attending Provider Instructions: You did present and have a small heart attack with some injury to your heart muscle. It is extremely important that you no longer smoke, follow-up with your doctors appointments and complete cardiac rehab Medications at discharge are quite different than when you came in Will be on 2 medications that are considered medicines to help keep your stents open they will be aspirin and plavix He will be on a cholesterol medicine called atorvastatin to help stabilize any additional cardiac plaque and reduce the chances of increased plaque formation in her coronary arteries You on 2 medications to help your heart muscle heal better and feels will be metoprolol and losartan If you have any questions about medications it is best to call your primary care or Dr. Pimentel for considering altering them or stopping them these medications are meant to protect you from additional heart attacks and help your heart heal over the next 3 to 6 months He also given a bottle of nitroglycerin this is to help rest you if you have recurrent attacks. Since your initial symptoms were shoulder discomfort I did consider that a warning sign but if you develop any of this or additional chest discomfort of any way please take a nitroglycerin and rest. If your pain does not resolve please report to the emergency department if her pain does not resolve I would recommend make a call to Dr. Pimentel's office. There is someone available to take messages 24 hours a day. At that point time he may give you additional instructions. 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 * No lifting over 2 pounds (approximately a 1/2 gallon of milk) with the utilized arm for 24 hours. * No strenuous activity such as bowling or tennis for 3 days. * Keep the site of the procedure covered with a bandage for 24 hours. *You may shower the day after the procedure. Do not take a tub bath or submerge the puncture site in water for the next 3 days. *Do not operate any motorized equipment for 3 days. SPECIAL CARE INSTRUCTIONS: The site may be slightly bruised and sore following your procedure. Should any of the following occur, contact the Dr. who performed your procedure. 1. Redness/inflammation, swelling, chills, or fever, or colored drainage at procedure site within 3-7 days after your procedure. 2. Coldness, discoloration, ongoing numbness, severe pain, or swelling. Expect mild tingling of hand and tenderness at the puncture site for up to three days. If this persists beyond three days, or other symptoms develop, notify the Dr. who performed your procedure. BLEEDING: If the procedure site on your wrist begins to bleed, do not panic 1. Place 1 or 2 fingers firmly just slightly above the insertion site to stop the bleeding. You may be able to feel your pulse as you hold pressure. 2. Lift your finger after 5 minutes to see if the bleeding has stopped. 3. Once the bleeding has stopped, gently wipe the wrist area clean with a bandage. * If the bleeding from your wrist does not stop after 10 minutes, or if there is a large amount of bleeding or spurting, call 911 (do not drive yourself to the hospital). SKIN IRRITATION: * You may experience some redness and/or swelling in the area where radiation was administered. If any skin irritation occurs, please contact your family physician. FOLLOW UP VISIT: Keep any scheduled doctor appointments. Pending Studies at Discharge: No Stand-Alone Forms: My [facility], Smoking Cessation Medications and DC Order Prescriptions: New atorvastatin 40 mg Tablet 40 mg PO QAM Qty: 30 5RF losartan 25 mg Tablet 25 mg PO QAM Qty: 30 5RF nitroglycerin [Nitrostat] 0.4 mg Tablet, Sublingual 0.4 mg sublingual UD PRN (Reason: chest pain) Qty: 1 0RF Rx Instructions: Take 1 tablet if you have chest discomfort or shoulder pain, sit and rest the pain does not resolve report to emergency department metoprolol tartrate 25 mg Tablet 25 mg PO BID Qty: 60 5RF aspirin 81 mg Tablet,Delayed Release (Dr/Ec) 81 mg PO QAM Qty: 30 5RF clopidogrel 75 mg Tablet 75 mg PO QAM Qty: 30 5RF Continued acetaminophen [Tylenol Extra Strength] 500 mg Tablet 1,000 mg PO DIRECTED PRN (Reason: PAIN/FEVER) Discontinued promethazine 25 mg tablet 25 mg PO TID PRN (Reason: nausea and vomiting) Qty: 30 0RF Discharge Orders: Discharge Order (Routine); Ordered 12/06/22 Ordered By: Carlin Kelley Admission Data Admit Date/Time: 12/04/22 16:47 Attending Provider: Carlin Kelley Admit Provider: Herbert Bethea Primary Care Provider: Margoth Longoria Other Providers: Herbert Bethea ; Fermin Pimentel Other Interventions: Discharge Summary Assessment (RN) Last Done: 12/06/22 12:49 Coding Level of Care Code 28666 INP/OBS DISCH >30 MIN Diagnoses Non-ST elevation SC (NSTEMI) I21.4 Ulcerative colitis K51.90 Obstructive sleep apnea G47.33
[2022-12-07] MEDS ORDERED: SPIRONOLACTONE 12.5 MG TAB PO SCH (09:00)
[2022-12-07] MEDS ORDERED: CLOPIDOGREL BISULFATE 75 MG TAB PO SCH (09:00)
== END 2022-12-06 13:10 | disposition home or self-care (01) | DRG 247 ==
LOC: 4W 12:28 → ED 12:28 → SUATTDRO 16:44 → 4W 17:46 → SUATTDRO 12-04 16:47

== ENCOUNTER 2023-11-08 08:43 | Inpatient (IN) ==
--- NOTE | 2023-11-08 09:09 | Emergency Department Note ---
Impression & Plan Pulmonary embolism, Chest pain, Embolism, pulmonary with infarction ED Provider Note NAME: KOFFI LEE AGE: 62 SEX: F : 1960 ARRIVES VIA: Walk-In INFORMANT: Patient, ED PROVIDER(S): Deangelo Molina DO CHIEF COMPLAINT: Chest pain HPI: The patient is a 62-year-old female who has a history of coronary artery disease and coronary artery stenting who presented to the emergency department for an evaluation of chest pain. The patient states she has left-sided chest pain into her neck or shoulder and under her left breast which began over the course the last 24 hours. She states the pain is more of an aching sensation. She describes it as increasing with deep breathing. She denies having any leg pain. She did note a little more leg swelling than usual but nothing out of the ordinary. She has not been seen by her family doctor for the symptoms. The patient denies having any recent trauma cough or fever. ROS: See above HPI for pertinent positives & negatives. A total of 10 systems reviewed and were otherwise negative. PAST MEDICAL HISTORY: See Below PAST SURGICAL HISTORY: See Below FAMILY HISTORY: See Below SOCIAL HISTORY: See Below HOME MEDICATIONS: See Below ALLERGIES: See Below VITALS: See Below PHYSICAL EXAMINATION: GENERAL: The patient is awake and alert. The patient is very anxious and appears to be uncomfortable. EYES: The conjunctivae are clear. The pupils are round and reactive. EARS, NOSE, MOUTH AND THROAT: The nose is without any evidence of any deformity. NECK: The neck is nontender and supple. RESPIRATORY: Splinting respirations were noted. There is no tachypnea or conversational dyspnea. CARDIOVASCULAR: Regular rate and rhythm noted there no murmurs rubs or gallops normal S1 normal S2. GASTROINTESTINAL: The abdomen is soft. Abdomen is nontender. MUSCULOSKELETAL/EXTREMITIES: There is no evidence of gross deformity full range of motion is noted in the hips and shoulders. SKIN: There is no obvious evidence of any rash. There are no petechiae, pallor or cyanosis noted. NEUROLOGIC: Patient is awake alert and oriented x3 MEDICAL DECISION MAKING: The patient is a 62-year-old female who presented to the emergency department for an evaluation of chest pain. The patient describes pleuritic left-sided chest pain. Patient's EKG showed no change from previous but she does have a left bundle branch block. I discussed the patient's laboratory and radiographic studies with her. She was found to have signs of an infiltrate on chest x-ray but given her presentation she did have a CT of the chest which revealed signs of pulmonary embolism as well as pulmonary infarction. She was started on heparin. The patient was reevaluated multiple times. I [facility] the [facility] have agreed to evaluate the patient in the emergency department for further management and disposition. Triage Nursing notes reviewed. Prior medical records reviewed Vital Signs: reviewed and remarkable for elevated blood pressure. Differential diagnosis: Cardiac ischemia, aortic dissection, pulmonary embolism, pneumothorax, pneumonia, pericarditis, myocarditis, esophageal rupture, GERD, cholecystitis, pancreatitis, musculoskeletal, as well as other pathologies. ER treatment provided: See below Diagnostics interpreted by me: ECG: EKG was obtained in the emergency department. My interpretation is sinus rhythm at 95 bpm. PVC was noted. Left bundle branch block pattern was noted. This was compared to a tracing from December 03, 2022. No changes were noted. Cardiac Monitoring: An order was placed for continuous cardiac monitoring. The monitor shows a rate of 58 bpm with sinus bradycardia. Laboratory studies: As stated above and show below. Imaging studies: See below. Radiographic imaging was reviewed by myself Consultation(s): I discussed this case with Dr. Velasquez [facility] ED COURSE: Procedures: none Critical Care: I have personally spent greater than 40 minutes of critical care time in the direct management of this patient. This includes bedside care, interpretation of diagnostic studies, and testing, discussion with consultants, patient, and family members, and other required patient management activities. This 40 minutes is in excess of all separately billable procedures. Past Med/Surg History Medical History Vitamin D deficiency Left bundle branch block Ischemic cardiomyopathy Systolic CHF Dyslipidemia Coronary artery disease History of non-ST elevation myocardial infarction (NSTEMI) (11/2022) Obstructive sleep apnea Hypertension Ulcerative colitis Surgical History S/P right oophorectomy S/P coronary artery stent placement (11/2022) EJSSE to RCA, JESSE x 2 to mid LAD S/P complete hysterectomy d/t ovarian cyst S/P cholecystectomy S/P tonsillectomy Family History Grandmother (Maternal) Breast cancer Uncle Myocardial infarction Heart disease Father No problems noted. Mother Osteoarthritis Asthma Other Arthritis Cancer Hypertension Obstructive sleep apnea Urticaria Denies family history of Ovarian cancer Prostate cancer Colorectal cancer Social History Smoking Status: Former smoker Tobacco Type: Cigarettes Age Started Using Tobacco: 17; Age Quit Using Tobacco: 62; packs per day: 1; Cigarettes Per Day: 1 pack per day; Second Hand Exposure: No; Do You Dip or Chew Tobacco: No; Hx Alcohol Use: No Hx Substance Use: No Preferred Language: Lao Communication Ability: Effective Visual Impairment: No Limitations Hearing Ability: Normal [employer] Required: No Beliefs That Will Affect Care: None marital status: Current Living Situation: Family Current Living Situation Comment: , brother current occupational status: disabled How many Children do You have: 0 Feels Safe at Home: Yes Childhood Exposure to Second-Hand Smoke: Yes Diet: other Diet Comment: Has UC- low fiber, high protien diet caffeine: Yes during the past year weight has: remained stable Dental Care, Regularly: No Physical Activity Frequency: Daily 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 Seatbelt Use: always Sunscreen Use: Yes Allergies Allergies Allergy/AdvReac Type Severity Reaction Status Date / Time No Known Allergies Allergy Verified 09/23/23 13:35 Home Meds Home Medications Medication Instructions Recorded Confirmed acetaminophen 500 mg tablet 1,000 mg PO DIRECTED PRN 12/03/22 11/08/23 (Tylenol Extra Strength) PAIN/FEVER meloxicam 15 mg tablet 15 mg PO DAILY PRN Pain 09/07/23 11/08/23 metoprolol succinate 50 mg 50 mg PO Q2D 10/25/23 11/08/23 tablet,extended release 24 hr prednisone 10 mg tablet 10 mg PO UD 11/08/23 11/08/23 Previous Rx's Medication Instructions Recorded nitroglycerin 0.4 mg sublingual 0.4 mg sublingual UD PRN chest 12/06/22 tablet (Nitrostat) pain #1 btl sacubitril 49 mg-valsartan 51 mg 1 tab PO BID #180 tabs 05/28/23 tablet (Entresto) atorvastatin 40 mg tablet 40 mg PO QAM #90 tabs 06/03/23 clopidogrel 75 mg tablet 75 mg PO QAM #90 tabs 06/03/23 spironolactone 25 mg tablet 25 mg PO DAILY #90 tabs 09/14/23 cholecalciferol (vitamin D3) 1,250 50,000 unit PO WEEKLY 8 weeks #8 10/26/23 mcg (50,000 unit) capsule caps Results & Data (ED) Vital Signs Vital Signs - 24 hr 11/08/23 08:45 11/08/23 08:58 11/08/23 09:00 Temperature 36.8 C Temperature Source Temporal Artery Scan Pulse Rate 100 H 94 H 94 H Pulse Rate [Apical] Pulse Rate from SpO2 Sensor Respiratory Rate 22 24 26 H Respiratory Effort / Characteristics Respiratory Depth Blood Pressure 124/67 Blood Pressure [Right Arm] Blood Pressure Mean 86 Blood Pressure Mean [Right Arm] Pulse Oximetry 94 Oxygen Delivery Method Room Air Sepsis New/Unexplained Change in Mental Status No Sepsis Action Taken by Nursing No Action Required 11/08/23 09:03 11/08/23 09:06 11/08/23 09:13 Temperature Temperature Source Pulse Rate 97 H Pulse Rate [Apical] Pulse Rate from SpO2 Sensor Respiratory Rate Respiratory Effort / Characteristics Respiratory Depth Blood Pressure 143/98 H Blood Pressure [Right Arm] Blood Pressure Mean 114 Blood Pressure Mean [Right Arm] Pulse Oximetry 98 Oxygen Delivery Method Room Air Sepsis New/Unexplained Change in Mental Status Sepsis Action Taken by Nursing 11/08/23 09:13 11/08/23 09:15 11/08/23 09:30 Temperature Temperature Source Pulse Rate 96 H 85 Pulse Rate [Apical] Pulse Rate from SpO2 Sensor 97 H 77 Respiratory Rate 17 22 Respiratory Effort / Characteristics Non-Labored Spontaneous Respiratory Depth Blood Pressure Blood Pressure [Right Arm] Blood Pressure Mean Blood Pressure Mean [Right Arm] Pulse Oximetry 96 94 Oxygen Delivery Method Sepsis New/Unexplained Change in Mental Status Sepsis Action Taken by Nursing 11/08/23 10:00 11/08/23 10:30 11/08/23 12:44 Temperature Temperature Source Pulse Rate 86 76 Pulse Rate [Apical] 57 L Pulse Rate from SpO2 Sensor 81 76 Respiratory Rate 19 23 15 Respiratory Effort / Characteristics Non-Labored Spontaneous Respiratory Depth Normal Blood Pressure Blood Pressure [Right Arm] 143/98 H Blood Pressure Mean Blood Pressure Mean [Right Arm] 113 Pulse Oximetry 93 94 96 Oxygen Delivery Method Room Air Sepsis New/Unexplained Change in Mental Status Sepsis Action Taken by Nursing 11/08/23 12:53 11/08/23 13:45 Temperature Temperature Source Pulse Rate 58 L Pulse Rate [Apical] 87 Pulse Rate from SpO2 Sensor Respiratory Rate Respiratory Effort / Characteristics Respiratory Depth Blood Pressure Blood Pressure [Right Arm] 174/90 H Blood Pressure Mean Blood Pressure Mean [Right Arm] 118 Pulse Oximetry 95 Oxygen Delivery Method Room Air Sepsis New/Unexplained Change in Mental Status Sepsis Action Taken by Care Home Medications Current Medication List: was personally reviewed by me Laboratory Data Attestation: I reviewed the patient's lab results. 11/08/23 10:01 11/08/23 09:06 Lab Results 11/08/23 11/08/23 11/08/23 Range/Units 09:06 10:01 11:40 WBC Cancelled 12.85 H RBC Cancelled 4.11 L Hgb Cancelled 12.3 Hct Cancelled 38.3 MCV Cancelled 93.2 MCH Cancelled 29.9 MCHC Cancelled 32.1 RDW Std Deviation Cancelled 57.1 H RDW Coeff of Essie Cancelled 16.7 H Plt Count Cancelled 204 MPV Cancelled 9.9 Immature Gran % (Auto) Cancelled 0.4 Neut % (Auto) Cancelled 76.3 Lymph % (Auto) Cancelled 14.1 Mineral % (Auto) Cancelled 8.2 Eos % (Auto) Cancelled 0.5 Baso % (Auto) Cancelled 0.5 Neut # (Auto) Cancelled 9.81 H Lymph # (Auto) Cancelled 1.81 Mineral # (Auto) Cancelled 1.05 H Eos # (Auto) Cancelled 0.07 Baso # (Auto) Cancelled 0.06 Immature Gran # (Auto) Cancelled 0.05 Absolute Nucleated RBC Cancelled Nucleated RBC % (auto) Cancelled Neutrophils % (Manual) Cancelled Band Neutrophils % Cancelled Lymphocytes % (Manual) Cancelled Prolymphocyte % Cancelled Reactive Lymphs % (Man) Cancelled Monocytes % (Manual) Cancelled Eosinophils % (Manual) Cancelled Basophils % (Manual) Cancelled Metamyelocytes % (Man) Cancelled Myelocytes % (Man) Cancelled Promyelocytes % (Man) Cancelled Blast Cells % (Manual) Cancelled Plasma Cell % (Manual) Cancelled Other Cells % Cancelled Nucleated RBC % Cancelled Neutrophils # (Manual) Cancelled Band Neutrophils # Cancelled Total Absolute Neuts Cancelled Lymphocytes # (Manual) Cancelled Prolymphocyte # Cancelled Reactive Lymphs # Cancelled Total Abs Lymphocytes Cancelled Monocytes # (Manual) Cancelled Eosinophils # (Manual) Cancelled Basophils # (Manual) Cancelled Metamyelocytes # (Man) Cancelled Myelocytes # (Manual) Cancelled Promyelocytes # (Man) Cancelled Blast Cells # (Man) Cancelled Plasma Cell # (Manual) Cancelled Other Cells # Cancelled Nucleated RBCs # (Man) Cancelled Hypersegmented Neuts Cancelled Hyposegmented Neuts Cancelled Hypogranular Neuts Cancelled Large Granular Lymphs Cancelled # Lrg Granular Lymphs Cancelled Hairy Cells Cancelled Smudge Cells Cancelled Toxic Granulation Cancelled Toxic Vacuolation Cancelled Dohle Bodies Cancelled [place] Rods Cancelled Platelet Estimate Cancelled Hypogranular Platelets Cancelled Giant Platelets Cancelled Platelet Satelliting Cancelled RBC Morphology Cancelled Polychromasia Cancelled Hypochromasia Cancelled Poikilocytosis Cancelled Basophilic Stippling Cancelled Anisocytosis Cancelled Microcytosis Cancelled Macrocytosis Cancelled Spherocytes Cancelled Pappenheimer Bodies Cancelled Sickle Cells Cancelled Target Cells Cancelled Tear Drop Cells Cancelled Ovalocytes Cancelled Stomatocytes Cancelled [place] Bodies Cancelled Echinocytes Cancelled Acanthocytes (Spur) Cancelled Rouleaux Cancelled RBC Agglutinates Cancelled Schistocytes Cancelled Sezary Cell Cancelled PT Cancelled 10.5 INR Cancelled 1.0 APTT Cancelled 27 PTT Ratio Cancelled 1.0 D-Dimer Cancelled 1380 H* Sodium 135 L (136-145) mmol/L Potassium 4.2 (3.5-5.1) mmol/L Chloride 105 (98-107) mmol/L Carbon Dioxide 22 (21-32) mmol/L Anion Gap 8 (3-11) BUN 25 H (6-23) mg/dl Creatinine 1.17 (0.6-1.2) mg/dl Est Cr Clr Drug Dosing 70.0 ml/min Est GFR ( Amer) 58.7 ml/min Est GFR (Non-Af Amer) 50.6 ml/min BUN/Creatinine Ratio 21.4 H (10-20) Glucose 112 H (70-99(Fasting)) mg/dl Calcium 9.5 (8.6-10.3) mg/dl Total Bilirubin 0.9 (0.2-1.0) mg/dl AST 20 (13-39) U/L ALT 19 (7-52) U/L Alkaline Phosphatase 85 (34-104) U/L Troponin I High Sens 14.8 H 12.7 (0-14) pg/ml Total Protein 7.6 (6.0-8.3) gm/dl Albumin 3.4 (3.4-5.0) gm/dl Globulin 4.2 H (2.5-4.0) gm/dl Albumin/Globulin Ratio 0.8 L (0.9-2) Lipase 27 (11-82) U/L Blood Parasites ID Cancelled Administered Medications Heparin Sodium/Dextrose (Heparin Sodium/Dextrose) 25,000 units in 500 mls @ 31 mls/hr IV .[id number] [facility]; Protocol Stop: 12/08/23 13:14 Last Admin: 11/08/23 13:08 Dose: 1,550 units/hr, 31 mls/hr Documented By: HAYDEN Co-signed By: DS Discontinued Medications Aspirin (Aspirin Chew 324 Mg) 324 mg PO NOW STA Stop: 11/08/23 09:07 Last Admin: 11/08/23 09:12 Dose: 324 mg Documented By: HS Ioversol (Optiray 320 125ml) 119 ml IV ONCE ONE Stop: 11/08/23 11:46 Last Admin: 11/08/23 11:41 Dose: 119 ml Documented By: BRM Morphine Sulfate (Morphine Sulfate 4 Mg/Ml 1 Ml Carp\Vial) 4 mg IV NOW STA Stop: 11/08/23 09:07 Last Admin: 11/08/23 09:12 Dose: 4 mg Documented By: HS Ondansetron HCl (Ondansetron Inj 2 Mg/Ml 2 Ml Vial) 4 mg IV NOW STA Stop: 11/08/23 09:07 Last Admin: 11/08/23 09:12 Dose: 4 mg Documented By: HS Imaging Data Attestation: I personally reviewed and interpreted this imaging study as follows: My Impression: 1 view chest x-ray was obtained in the emergency department. My interpretation is infiltrate at the left base, no free air, final report below Radiologist's Impression: Chest X-Ray 11/08/23 09:06 XR chest 1V portable HISTORY: Chest pain, nonspecific COMPARISON: Chest 02/02/2023. FINDINGS: No pneumothorax. No pleural effusions. The heart is normal in size. The right lung is clear. No evidence for pulmonary edema. No acute fractures. Small focal density within the periphery of the left lung base. This is new from the prior study. A left coronary artery stent is noted. IMPRESSION: There is a new small airspace opacity within the periphery of the left lung base. This favors a pneumonia. One-month follow-up recommended to ensure resolution. ACT 112: Negative or not required by law. Electronically signed by: Christopher Wells M.D. 11/08/2023 10:26 AM Chest CTA 11/08/23 11:25 CT ANGIOGRAPHY OF THE CHEST, PULMONARY EMBOLUS PROTOCOL CLINICAL HISTORY: Left-sided chest pain and shortness of breath. Evaluate for pulmonary embolus. COMPARISON STUDY: Chest radiograph performed earlier today. TECHNIQUE: Following IV administration of 119 mL of Optiray, helical axial images of the chest were obtained utilizing the pulmonary embolus protocol. Maximal intensity projections and sagittal and coronal reformats were viewed on an independent 3D workstation. IV contrast was administered without complication. Automated exposure control was utilized for the study. A dose lowering technique was utilized adhering to the principles of ALARA. CT DOSE: 860.05 mGy.cm FINDINGS: No enlarged axillary, mediastinal or hilar lymph nodes are present. There is no pericardial effusion. No thoracic aortic dissection is present. Moderate coronary artery calcification is noted. There is a subsegmental pulmonary embolus within the posterior basal segment of the right lower lobe on image 70 of 215. Although suboptimally assessed due to respiratory motion, there is a probable subsegmental pulmonary embolus within the left lower lobe on image 102. Therefore, a 3.1 cm subpleural left lower lobe opacity favors a pulmonary infarct. Additional groundglass opacity within the left lower lobe is noted. There is a small left pleural effusion. No pneumothorax is present. Biliary ductal dilatation is partially imaged. This is similar to prior CT and likely related to cholecystectomy. IMPRESSION: 1. Several subsegmental pulmonary emboli, as described above. 3.1 cm subpleural left lower lobe opacity favors a pulmonary infarct. A focus of pneumonia is considered less likely. 2. Small left pleural effusion, likely related to pulmonary infarct. ACT 112: Negative or not required by law. Electronically signed by: Nino Patel M.D. 11/08/2023 12:23 PM Discharge Plan Visit Data Chief Complaint: Cardiac Assessment Stated Complaint: SHOULDER AND RIB PAINS ED Provider: Deangelo Molina Discharge Problem: Pulmonary embolism, Chest pain, Embolism, pulmonary with infarction Patient Disposition: Admitted As Inpatient Discharge Instructions Interventions: ED Discharge Assessment Last Done: 11/08/23 14:18 Discharge Problem: Pulmonary embolism Qualifiers: Pulmonary embolism type: other Chronicity: acute Acute cor pulmonale presence: unspecified Qualified Code(s): I26.99 - Other pulmonary embolism without acute cor pulmonale Chest pain Qualifiers: Chest pain type: chest pain on breathing Qualified Code(s): R07.1 - Chest pain on breathing
[2023-11-08] MEDS: MoRPHine SULFATE 4 MG/ML 1 ML CARP\\VIAL IV STA (09:12)
[2023-11-08] MEDS: ASPIRIN CHEW 324 MG PO STA (09:12)
[2023-11-08] MEDS: ONDANSETRON INJ 2 MG/ML 2 ML VIAL IV STA (09:12)
[2023-11-08 09:36] LABS: Albumin Globulin Ratio 0.8 (0.9-2); Albumin Level 3.4 gm/dl (3.4-5.0); BUN Creatinine Ratio 21.4 (10-20); Bilirubin,Total 0.9 mg/dl (0.2-1.0); Calcium 9.5 mg/dl (8.6-10.3); Est GFR (African American) 58.7 ml/min; Est GFR (Non-African American) 50.6 ml/min; Globulin 4.2 gm/dl (2.5-4.0); Potassium 4.2 mmol/L (3.5-5.1); Total Protein 7.6 gm/dl (6.0-8.3)
[2023-11-08 09:42] LABS: Troponin I High Sensitivity 14.8 pg/ml (0-14)
[2023-11-08 10:27] LABS: Basophils # (auto) 0.06 K/uL (0.00-0.20); Basophils % (auto) 0.5 %; Eosinophils # (auto) 0.07 K/uL (0.00-0.50); Eosinophils % (auto) 0.5 %; Hematocrit (blood only) 38.3 % (37.0-47.0); Hemoglobin 12.3 g/dl (12.0-16.0); Immature Granulocytes # (auto) 0.05 K/uL (0.01-0.20); Immature Granulocytes % (auto) 0.4 %; Lymphocytes # (auto) 1.81 K/uL (1.20-3.40); Lymphocytes % (auto) 14.1 %; Mean Corpuscular Hemoglobin 29.9 pg (25.0-34.0); Mean Corpuscular Hgb Conc 32.1 g/dL (32.0-36.0); Mean Corpuscular Volume 93.2 fL (80.0-100.0); Mean Platelet Volume 9.9 fL (9.4-12.4); Monocytes # (auto) 1.05 K/uL (0.11-0.59); Monocytes % (auto) 8.2 %; Neutrophils # (auto) 9.81 K/uL (1.40-6.50); Neutrophils % (auto) 76.3 %; Platelet Count 204 K/uL (130-400); RDW Coefficient of Variation 16.7 % (11.5-14.5); RDW Standard Deviation 57.1 fL (36.4-46.3); Red Blood Count 4.11 M/uL (4.20-5.40); White Blood Count 12.85 K/ul (4.8-10.8)
--- NOTE | 2023-11-08 10:27 | XRay Report ---
XR chest 1V portable HISTORY: Chest pain, nonspecific COMPARISON: Chest 02/02/2023. FINDINGS: No pneumothorax. No pleural effusions. The heart is normal in size. The right lung is clear . No evidence for pulmonary edema. No acute fractures. Small focal density within the periphery of th e left lung base. This is new from the prior study. A left coronary artery stent is noted. IMPRESSION: There is a new small airspace opacity within the periphery of the left lung base. This favors a pneum onia. One-month follow-up recommended to ensure resolution. ACT 112: Negative or not required by law. Electronically signed by: Christopher Wells M.D. 11/08/2023 10:26 AM
[2023-11-08 11:10] LABS: Partial Thromboplastin Time 27 Seconds (21-31); Prothrombin Time 10.5 Seconds (9.0-12.0)
[2023-11-08 11:31] LABS: D Dimer 1380 ug/L FEU (0-500)
[2023-11-08] MEDS: OPTIRAY 320 125ml IV ONE (11:41)
--- NOTE | 2023-11-08 12:24 | CT Scan Report ---
CT ANGIOGRAPHY OF THE CHEST, PULMONARY EMBOLUS PROTOCOL CLINICAL HISTORY: Left-sided chest pain and shortness of breath. Evaluate for pulmonary embolus. COMPARISON STUDY: Chest radiograph performed earlier today. TECHNIQUE: Following IV administration of 119 mL of Optiray, helical axial images of the chest were o btained utilizing the pulmonary embolus protocol. Maximal intensity projections and sagittal and cor onal reformats were viewed on an independent 3D workstation. IV contrast was administered without co mplication. Automated exposure control was utilized for the study. A dose lowering technique was ut ilized adhering to the principles of ALARA. CT DOSE: 860.05 mGy.cm FINDINGS: No enlarged axillary, mediastinal or hilar lymph nodes are present. There is no pericardia l effusion. No thoracic aortic dissection is present. Moderate coronary artery calcification is noted . There is a subsegmental pulmonary embolus within the posterior basal segment of the right lower lob e on image 70 of 215. Although suboptimally assessed due to respiratory motion, there is a probable s ubsegmental pulmonary embolus within the left lower lobe on image 102. Therefore, a 3.1 cm subpleural left lower lobe opacity favors a pulmonary infarct. Additional groundglass opacity within the left l ower lobe is noted. There is a small left pleural effusion. No pneumothorax is present. Biliary ducta l dilatation is partially imaged. This is similar to prior CT and likely related to cholecystectomy. IMPRESSION: 1. Several subsegmental pulmonary emboli, as described above. 3.1 cm subpleural left lower lobe opaci ty favors a pulmonary infarct. A focus of pneumonia is considered less likely. 2. Small left pleural effusion, likely related to pulmonary infarct. ACT 112: Negative or not required by law. Electronically signed by: Nino Patel M.D. 11/08/2023 12:23 PM
[2023-11-08] MEDS ORDERED: Heparin IV Adult Wt-Based Standard *NO* INITIAL Bolus Protocol IV STA (12:51)
[2023-11-08] MEDS: HEPARIN SODIUM/DEXTROSE 25,000 UNITS/500 ML BAG IV SCH (13:08)
--- NOTE | 2023-11-08 14:14 | History & Physical Report ---
Date of Service November 08, 2023 Assessment & Plan (1) Pulmonary emboli: Plan: -Admit to med/tele -Currently hemodynamically stable, stable on RA, and non-toxic appearing -Presented to the ED on 11/07 with acute onset of left shoulder pain, left-sided pleuritic chest pain, and SOB -Noted to have several subsegmental pulmonary emboli with likely pulmonary infarct in the LLL vs possible pneumonia -Patient has been sedentary over the past 1.5-2 months due to orthostatic hypotension related to recent UC flare -No recent travel or LE trauma -Continue heparin drip at this time, patient denies recent bleeding -When stable can transition to PO anticoagulant -Will obtain BL LE venous doppler and TTE -Incentive spirometry, flutter therapy, prn O2 to keep SpO2 between 89-92% with her smoking hx -PRN tylenol and morphine for pain -Heparin drip for DVT PPX -HH diet -AM CBC, BMP, PT/INR (2) Chest pain: Plan: -Patient's pleuritic left sided chest pain with associated left shoulder pain appears consistent with her acute PE's diagnosed today -Did have an NSTEMI last year with multiple JESSE placed by Dr. Pimentel -Patient denies discomfort at rest, denies these symptoms being similar to her previous NSTEMI -No acute ECG changes, she had the LBBB on her last admission for NSTEMI -Initial high sen trop elevated at 14 --> 12 on 2 hour repeat -Continue to monitor on tele -Monitor TTE (3) Ulcerative colitis: Plan: -Currently on a long prednisone taper due to flare approximately 1.5 months ago -Today is her last day of 15 mg daily, will start 7 days of 10 mg daily tomorrow -Denies recurrent bloody BM's since starting prednisone taper -Continue taper as prescribed, had her 15 mg prior to ED arrival -Monitor closely for bleeding while on anticoagulation, patient was instructed to alert nursing staff if she notices bloody BM's or melena (4) Ischemic cardiomyopathy: Plan: -Euvolemic on exam -Will hold Spironolactone for now to prevent hypotension -Continue Entresto (5) Coronary artery disease: Plan: -Continue plavix (6) Hypertension: Plan: -Stable -Hold Spironolactone for now to prevent hypotension Plan The patient was discussed with Dr. Baresel at the time of the admission History of Present Illness Chief Complaint: SOB, left shoulder pain Primary Care Provider: Phuong Hernandes DO Elaine is a 62 year old female with a PMH significant for CAD S/P NSTEMI and PCI with Dr Pimentel on 12/04/22 (Acute 95% mid RCAstatus post JESSE, Subtotal mid LAD occlusionpost 2 JESSE, Residual ramus disease), Ischemic Cardiomyopathy (LVEF of 40-45% as of 05/11/2023), hyperlipemia, RADHA, UC who presented to the [facility] ED on 11/08/23 with complaints of left shoulder pain and SOB which began on the night of 11/07/23. Noted to be tachycardic at 100 and mildly hypertensive at 143/98 but otherwise stable. Labs were significant for a leukocytosis of 12 with neutrophil predominance of 9, D-dimer of 1380, initial high sen trop of 14 -->12 on 2 hour repeat. CXR noted possible left lung opacity. CTA of the chest with PE protocol was read as "1. Several subsegmental pulmonary emboli, as described above. 3.1 cm subpleural left lower lobe opacity favors a pulmonary infarct. A focus of pneumonia is considered less likely. 2. Small left pleural effusion, likely related to pulmonary infarct.". Pror to admission the patient was started on a heparin drip and given a dose of 4 mg IV morphine, 4 mg IV zofran, and 324 mg Aspirin. At the time of the exam the patient was sitting in bed in no acute distress. States that she woke from sleep around 0200 this am with acute onset of left shoulder pain, left sided chest pain with inspiration, and SOB. Denies worsening of symptoms when she ambulated to the bathroom, but symptoms progressed over the morning leading to her ED evaluation. She did take one Nitroglycerin tab which did not change her symptoms. Denies recent fever, chest pain at rest, cough, hemoptysis, nausea, vomiting, abd pain, dysuria, hematuria, melena, bloody BM's, and recent trauma. Of note, she is currently on a long prednisone taper due to a UC flare approximately 1.5 months ago. Over this time she has been very sedentary as she had issues with orthostatic hypotension with the recent UC flare. She denies recent long travel or trauma to the [facility]. She has noticed increased swelling in the LLE and cramping in the RLE over the past week. She is a full code. Please refer to Dr. Morel's attestation for any changes to the treatment plan Allergies Allergy/AdvReac Type Severity Reaction Status Date / Time No Known Allergies Allergy Verified 09/23/23 13:35 Home Medications Medication Instructions Recorded Confirmed Type acetaminophen 500 mg tablet 1,000 mg PO DIRECTED PRN 12/03/22 11/08/23 History (Tylenol Extra Strength) PAIN/FEVER nitroglycerin 0.4 mg sublingual 0.4 mg sublingual UD PRN chest 12/06/22 11/08/23 Rx tablet (Nitrostat) pain #1 btl sacubitril 49 mg-valsartan 51 mg 1 tab PO BID #180 tabs 05/28/23 11/08/23 Rx tablet (Entresto) atorvastatin 40 mg tablet 40 mg PO QAM #90 tabs 06/03/23 11/08/23 Rx clopidogrel 75 mg tablet 75 mg PO QAM #90 tabs 06/03/23 11/08/23 Rx meloxicam 15 mg tablet 15 mg PO DAILY PRN Pain 09/07/23 11/08/23 History spironolactone 25 mg tablet 25 mg PO DAILY #90 tabs 09/14/23 11/08/23 Rx metoprolol succinate 50 mg 50 mg PO Q2D 10/25/23 11/08/23 History tablet,extended release 24 hr cholecalciferol (vitamin D3) 1,250 50,000 unit PO WEEKLY 8 weeks #8 10/26/23 11/08/23 Rx mcg (50,000 unit) capsule caps prednisone 10 mg tablet 10 mg PO UD 11/08/23 11/08/23 History Past Med/Surg History Medical History Vitamin D deficiency Left bundle branch block Ischemic cardiomyopathy Systolic CHF Dyslipidemia Coronary artery disease History of non-ST elevation myocardial infarction (NSTEMI) (11/2022) Obstructive sleep apnea Hypertension Ulcerative colitis Surgical History S/P right oophorectomy S/P coronary artery stent placement (11/2022) JESSE to RCA, JESSE x 2 to mid LAD S/P complete hysterectomy d/t ovarian cyst S/P cholecystectomy S/P tonsillectomy Family History Grandmother (Maternal) Breast cancer Uncle Myocardial infarction Heart disease Father No problems noted. Mother Osteoarthritis Asthma Other Arthritis Cancer Hypertension Obstructive sleep apnea Urticaria Denies family history of Ovarian cancer Prostate cancer Colorectal cancer Social History Smoking Status: Former smoker Tobacco Type: Cigarettes Age Started Using Tobacco: 17; Age Quit Using Tobacco: 62; packs per day: 1; Cigarettes Per Day: 1 pack per day; Second Hand Exposure: No; Do You Dip or Chew Tobacco: No; Hx Alcohol Use: No Hx Substance Use: No Preferred Language: Luxembourgish Communication Ability: Effective Visual Impairment: No Limitations Hearing Ability: Normal Eyelet Maker Required: No Beliefs That Will Affect Care: None marital status: Current Living Situation: Family Current Living Situation Comment: , brother current occupational status: disabled How many Children do You have: 0 Feels Safe at Home: Yes Childhood Exposure to Second-Hand Smoke: Yes Diet: other Diet Comment: Has UC- low fiber, high protien diet caffeine: Yes during the past year weight has: remained stable Dental Care, Regularly: No Physical Activity Frequency: Daily 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 Seatbelt Use: always Sunscreen Use: Yes Physical Exam Physical Exam: Physical Exam: General: In no acute distress, stated age, well-nourished, good hygiene HEENT: Normocephalic, atraumatic, no scleral icterus, pupils around round, symmetrical, and reactive to light, moist mucus membranes, trachea midline, no thyromegaly Chest/Pulm: No respiratory distress, unable to take deep breaths due to pleuritic chest pain, symmetrical chest expansion, clear breath sounds throughout Cardiac: RRR, no murmurs noted Abdomen: Negative for ascites and bruising, normoactive bowel sounds, soft, non-tender to palpation throughout Musculoskeletal: Symmetrical and without signs of acute trauma, upper and lower extremities with full ROM, no atrophy, spasticity, or flaccidity Extremities: Radial, dorsalis pedis, and posterior tibial pulses are intact and symmetrical, no significant swelling or edema noted in the BL LE's Skin: Warm, dry, no rashes , lesions, or scars noted Neuro: Alert and oriented to person, place, month, year, and president, no focal defects, no tremors noted Psych: No acute distress, calm and cooperative during the exam Results & Data Results & Data Vital Signs (Past 12 Hours) Vital Signs Temp Pulse Pulse Resp BP BP Pulse Ox 11/08/23 13:45 58 L 11/08/23 12:44 57 L 15 143/98 H 96 11/08/23 10:30 76 23 94 11/08/23 10:00 86 19 93 11/08/23 09:30 85 22 94 11/08/23 09:13 96 H 17 96 11/08/23 09:13 143/98 H 11/08/23 09:06 98 11/08/23 09:03 97 H 11/08/23 09:00 94 H 26 H 11/08/23 08:58 94 H 24 11/08/23 08:45 36.8 C 100 H 22 124/67 94 O2 Del Method 11/08/23 13:45 11/08/23 12:44 Room Air 11/08/23 10:30 11/08/23 10:00 11/08/23 09:30 11/08/23 09:13 11/08/23 09:13 11/08/23 09:06 Room Air 11/08/23 09:03 11/08/23 09:00 11/08/23 08:58 11/08/23 08:45 Room Air Laboratory Results Abnormal lab results 11/08/23 11/08/23 Range/Units 09:06 10:01 WBC 12.85 H (4.8-10.8) K/ul RBC 4.11 L (4.20-5.40) M/uL RDW Std Deviation 57.1 H (36.4-46.3) fL RDW Coeff of Essie 16.7 H (11.5-14.5) % Neut # (Auto) 9.81 H (1.40-6.50) K/uL [place] # (Auto) 1.05 H (0.11-0.59) K/uL D-Dimer 1380 H* (0-500) ug/L FEU Sodium 135 L (136-145) mmol/L BUN 25 H (6-23) mg/dl BUN/Creatinine Ratio 21.4 H (10-20) Glucose 112 H (70-99(Fasting)) mg/dl Troponin I High Sens 14.8 H (0-14) pg/ml Globulin 4.2 H (2.5-4.0) gm/dl Albumin/Globulin Ratio 0.8 L (0.9-2) Diagnostic Findings Chest X-Ray 11/08/23 09:06 XR chest 1V portable HISTORY: Chest pain, nonspecific COMPARISON: Chest 02/02/2023. FINDINGS: No pneumothorax. No pleural effusions. The heart is normal in size. The right lung is clear. No evidence for pulmonary edema. No acute fractures. Small focal density within the periphery of the left lung base. This is new from the prior study. A left coronary artery stent is noted. IMPRESSION: There is a new small airspace opacity within the periphery of the left lung base. This favors a pneumonia. One-month follow-up recommended to ensure resolution. ACT 112: Negative or not required by law. Electronically signed by: Christopher Wells M.D. 11/08/2023 10:26 AM Chest CTA 11/08/23 11:25 CT ANGIOGRAPHY OF THE CHEST, PULMONARY EMBOLUS PROTOCOL CLINICAL HISTORY: Left-sided chest pain and shortness of breath. Evaluate for pulmonary embolus. COMPARISON STUDY: Chest radiograph performed earlier today. TECHNIQUE: Following IV administration of 119 mL of Optiray, helical axial images of the chest were obtained utilizing the pulmonary embolus protocol. Maximal intensity projections and sagittal and coronal reformats were viewed on an independent 3D workstation. IV contrast was administered without complication. Automated exposure control was utilized for the study. A dose lowering technique was utilized adhering to the principles of ALARA. CT DOSE: 860.05 mGy.cm FINDINGS: No enlarged axillary, mediastinal or hilar lymph nodes are present. There is no pericardial effusion. No thoracic aortic dissection is present. Moderate coronary artery calcification is noted. There is a subsegmental pulmon jean claude embolus within the posterior basal segment of the right lower lobe on image 70 of 215. Although suboptimally assessed due to respiratory motion, there is a probable subsegmental pulmonary embolus within the left lower lobe on image 102. Therefore, a 3.1 cm subpleural left lower lobe opacity favors a pulmonary infarct. Additional groundglass opacity within the left lower lobe is noted. There is a small left pleural effusion. No pneumothorax is present. Biliary ductal dilatation is partially imaged. This is similar to prior CT and likely related to cholecystectomy. IMPRESSION: 1. Several subsegmental pulmonary emboli, as described above. 3.1 cm subpleural left lower lobe opacity favors a pulmonary infarct. A focus of pneumonia is considered less likely. 2. Small left pleural effusion, likely related to pulmonary infarct. ACT 112: Negative or not required by law. Electronically signed by: Nino Patel M.D. 11/08/2023 12:23 PM ECG Additional Comments: Sinus rhythm with sinus arrhythmia with occasional Premature ventricular complexes Left axis deviation Left bundle branch block Abnormal ECG When compared with ECG of 03-DEC-2022 12:43, Premature ventricular complexes are now Present QRS duration has decreased QT has shortened Code Status & VTE Plan Code Status Full code VTE Prophylaxis Plan VTE Prophylaxis will be ordered: Yes Supervising Physician Co-Signing Physician Notes Patient seen and examined, chart reviewed, case discussed with Broderick Zaldivar and I agree with the assessment and plan as above except as otherwise noted Labs and images reviewed [id number] female with a past medical history of NSTEMI with PCI, seen cardiomyopathy EF 45%, hyperlipidemia, UC presents with left shoulder pain is tachycardic and hypertensive on admission with elevated D-dimer and subsequently found to have several subsegmental PEs on imaging. She was admitted for initial treatment of PE on heparin drip, anticipate transition to DOAC 11/08. Does have a concurrent history of ulcerative colitis. Also with history of heart failure. She reports she did have some transient foot swelling for which she took an extra diuretic this morning and felt that this resolved it. Currently has no pitting edema admitting exam. Numbness on clear. Agree with treatment and assessment and management above. Given report of leg swelling, Dopplers ordered for completion PG Care Time/CCT Total # of Minutes Spent Total Time Spent with Patient: Total time spent is greater than 50% in coordination of care (as documented) at patient's floor/unit and/or counseling patient: C[place] [address] INT INP/OBS CARE 3/75MIN Patient Type Established Medical Decision Making High Complexity Diagnoses Pulmonary emboli I26.99 Chest pain R07.9 Ulcerative colitis K51.90 Ischemic cardiomyopathy I25.5 Coronary artery disease I25.10 Hypertension I10
[2023-11-08] MEDS ORDERED: MoRPHine SULFATE 2 MG/ML CARP IV PRN (14:27)
[2023-11-08] MEDS: ACETAMINOPHEN 325 MG TAB PO STA (14:45)
[2023-11-08] MEDS: PANTOprazole 40 MG TAB PO STA (14:46)
--- NOTE | 2023-11-08 16:52 | Electrocardiogram Report ---
Test Reason : Blood Pressure : / mmHG Vent. Rate : 095 BPM Atrial Rate : 095 BPM P-R Int : 158 ms QRS Dur : 134 ms QT Int : 362 ms P-R-T Axes : 010 -49 114 degrees QTc Int : 454 ms Sinus rhythm with sinus arrhythmia with occasional Premature ventricular complexes Left axis deviation Left bundle branch block Abnormal ECG When compared with ECG of 03-DEC-2022 12:43, Premature ventricular complexes are now Present QRS duration has decreased QT has shortened Confirmed by Viral Rae ([id number]) on 11/08/2023 4:51:53 PM Referred By: Confirmed By:Pablo Rae
--- NOTE | 2023-11-08 17:25 | XCELERA ---
[id number]
[2023-11-08 19:48] LABS: ANTI-Xa, UFH(UnfractionatedHep 0.51 IU/ml (0.3-0.7)
[2023-11-08] MEDS: VALSARTAN/SACUBITRIL 51/49 MG TAB PO SCH (20:17)
--- NOTE | 2023-11-08 22:07 | Ultrasound Report ---
ULTRASOUND BILATERAL LOWER EXTREMITY VENOUS CLINICAL HISTORY: Pulmonary embolus. COMPARISON STUDY: No priors. TECHNIQUE: Real-time, grayscale, and color Doppler sonography of the deep veins of the right and left lower extremity was performed from the inguinal crease to the calf. Compression and augmentation wer e utilized. FINDINGS: There is no sonographic evidence of deep venous thrombosis identified in the right or left lower extremity. The common femoral, superficial femoral, and popliteal veins are patent and normally compressible bilaterally. The greater saphenous vein and the profunda femoris vein at the junction w ith the common femoral vein are clear in both legs. The visualized calf veins are patent bilaterally. IMPRESSION: There is no sonographic evidence of deep venous thrombosis identified in the right or lef t lower extremity. ACT 112: Negative or not required by law. Electronically signed by: Silas Plata M.D. 11/08/2023 10:04 PM
[2023-11-09] MEDS: PNEUMOCOCCAL VACCINE (PCV20) 20-VAL CONJ-DIP CRM/PF 0.5 ML SYR IM ONE (05:14)
[2023-11-09 06:51] LABS: Basophils # (auto) 0.06 K/uL (0.00-0.20); Basophils % (auto) 0.6 %; Eosinophils # (auto) 0.13 K/uL (0.00-0.50); Eosinophils % (auto) 1.2 %; Hematocrit (blood only) 38.9 % (37.0-47.0); Hemoglobin 12.1 g/dl (12.0-16.0); Immature Granulocytes # (auto) 0.05 K/uL (0.01-0.20); Immature Granulocytes % (auto) 0.5 %; Lymphocytes % (auto) 38.5 %; Mean Corpuscular Hemoglobin 30.3 pg (25.0-34.0); Mean Corpuscular Hgb Conc 31.1 g/dL (32.0-36.0); Mean Corpuscular Volume 97.3 fL (80.0-100.0); Mean Platelet Volume 10.5 fL (9.4-12.4); Monocytes # (auto) 0.87 K/uL (0.11-0.59); Neutrophils # (auto) 5.59 K/uL (1.40-6.50); Neutrophils % (auto) 51.2 %; Platelet Count 184 K/uL (130-400); RDW Coefficient of Variation 16.8 % (11.5-14.5)
[2023-11-09 07:23] LABS: BUN Creatinine Ratio 20.4 (10-20); Calcium 9.3 mg/dl (8.6-10.3); Creatinine Clr Calc Pharmacy 78.6 ml/min; Est GFR (African American) 67.9 ml/min; Est GFR (Non-African American) 58.6 ml/min; Potassium 4.2 mmol/L (3.5-5.1)
[2023-11-09 07:49] LABS: Prothrombin Time 10.9 Seconds (9.0-12.0)
[2023-11-09 07:58] LABS: ANTI-Xa, UFH(UnfractionatedHep 0.83 IU/ml (0.3-0.7)
[2023-11-09] MEDS: ATORVASTATIN 40 MG TAB PO SCH (08:05)
[2023-11-09] MEDS: METOPROLOL SUCC 50MG EXT REL TAB PO SCH (08:05)
[2023-11-09] MEDS: predniSONE 10 MG TABLET PO SCH (08:05)
[2023-11-09] MEDS: CLOPIDOGREL BISULFATE 75 MG TAB PO SCH (08:23)
[2023-11-09] MEDS: HEPARIN STOP ORDER ONE (11:13)
[2023-11-09] MEDS: APIXABAN 5 MG TABLET PO SCH (12:41)
--- NOTE | 2023-11-09 13:35 | Electrocardiogram Report ---
Test Reason : Blood Pressure : / mmHG Vent. Rate : 076 BPM Atrial Rate : 076 BPM P-R Int : 170 ms QRS Dur : 148 ms QT Int : 430 ms P-R-T Axes : -05 -45 123 degrees QTc Int : 483 ms Normal sinus rhythm with sinus arrhythmia Left axis deviation Left bundle branch block Abnormal ECG When compared with ECG of 08-NOV-2023 08:58, Premature ventricular complexes are no longer Present Confirmed by Viral Rae ([id number]) on 11/09/2023 1:34:57 PM Referred By: Jerad Morel Confirmed By:Pablo Rae
--- NOTE | 2023-11-09 14:44 | Hospitalist Progress Note ---
Date of Service November 09, 2023 Assessment & Plan (1) Pulmonary emboli: Plan: -Presents to the hospital with complaints of left shoulder pain pleuritic chest pain -Noted to have several subsegmental pulmonary emboli with likely pulmonary infarct in the LLL, -Bilateral lower extremity venous Doppler did not show any evidence of DVT and echo did not show any evidence of right ventricular heart strain -Patient has been sedentary over the past 1.5-2 months due to orthostatic hypotension related to recent UC flare -No recent travel or LE trauma -Initially started on IV heparin, has been transitioned to p.o. Eliquis -Monitor overnight, hopefully discharge tomorrow (2) Chest pain: Plan: -Patient's pleuritic left sided chest pain with associated left shoulder pain appears consistent with her acute PE's, pain is now resolved -Did have an NSTEMI last year with multiple JESSE placed by Dr. Pimentel -Patient denies discomfort at rest, denies these symptoms being similar to her previous NSTEMI -No acute ECG changes, she had the LBBB on her last admission for NSTEMI -Initial high sen trop elevated at 14 --> 12 on 2 hour repeat -Continue to monitor on tele -Monitor TTE (3) Ulcerative colitis: Plan: -Currently on a long prednisone taper due to flare approximately 1.5 months ago -Currently on 7 days of 10 mg daily -Denies recurrent bloody BM's since starting prednisone taper (4) Ischemic cardiomyopathy: Plan: -Euvolemic on exam -Will hold Spironolactone for now to prevent hypotension -Continue Entresto (5) Coronary artery disease: Plan: -Continue plavix (6) Hypertension: Plan: -Stable -Hold Spironolactone for now to prevent hypotension (7) Chronic combined systolic and diastolic CHF (congestive heart failure): Plan: Recent echo showed ejection fraction 35 to 40% with diastolic dysfunction Presently compensated Monitor input and output, daily weight (8) Morbid obesity: Plan Hopefully discharge in next 24 hours Admission and Anticipated Discharge Date Admission Date: November 08, 2023 Subjective Patient seen and examined today still complains of mild left shoulder pain however states shortness of breath is much improved. Review of Systems Review of Systems: All systems reviewed are negative, apart from the ones contained in the history. Physical Exam Physical Exam: The patient is awake, alert and oriented 3, well developed and well nourished, normocephalic and atraumatic, lying in bed and in no acute distress. HEENT--PERRL, EOMI, mucous membranes and oropharynx mildly dry Neck--supple. No JVD. No bruits. Thyroid normal, trachea midline, no adenopathy. Heart--normal S1 and S2. No murmurs, rubs or gallops. Lungs--clear bilaterally, no respiratory distress, no accessory muscle use. Abdomen--normal bowel sounds and soft. Extremities--no cyanosis or clubbing. No edema. Dermatologic--normal skin turgor, normal color, no abnormal lymph nodes, no rash. Neurologic--cranial nerves II through XII grossly intact. Rheumatologic--normal range of motion. Psychiatric--normal affect. Results & Data Results & Data Vital Signs (Past 12 Hours) Vital Signs Temp Pulse Pulse Resp BP BP Pulse Ox 11/09/23 11:32 97.7 F 77 16 103/72 93 11/09/23 08:15 97.7 F 52 L 18 106/73 93 11/09/23 08:00 11/09/23 07:33 98.1 F 66 20 125/85 93 11/09/23 07:31 56 L 11/09/23 03:23 97.3 F L 55 L 18 94/55 L 92 O2 Del Method 11/09/23 11:32 Room Air 11/09/23 08:15 Room Air 11/09/23 08:00 Room Air 11/09/23 07:33 Room Air 11/09/23 07:31 11/09/23 03:23 Room Air PG Care Time/CCT Total # of Minutes Spent Total Time Spent with Patient: Total time spent is greater than 50% in coordination of care (as documented) at patient's floor/unit and/or counseling patient: Coding Level of Care Code 26253 SUB INP/OBS CARE 2/35MIN Diagnoses Pulmonary emboli I26.99 Chest pain R07.9 Ulcerative colitis K51.90 Ischemic cardiomyopathy I25.5 Coronary artery disease I25.10 Hypertension I10 Chronic combined systolic and diastolic CHF (congestive heart failure) I50.42 Morbid obesity E66.01 Time Spent (min) 35
[2023-11-10] MEDS: ACETAMINOPHEN 325 MG TAB PO PRN (07:50)
[2023-11-10 07:55] LABS: Basophils # (auto) 0.05 K/uL (0.00-0.20); Basophils % (auto) 0.6 %; Eosinophils # (auto) 0.13 K/uL (0.00-0.50); Eosinophils % (auto) 1.6 %; Hematocrit (blood only) 36.1 % (37.0-47.0); Hemoglobin 11.3 g/dl (12.0-16.0); Immature Granulocytes # (auto) 0.02 K/uL (0.01-0.20); Immature Granulocytes % (auto) 0.3 %; Lymphocytes # (auto) 3.09 K/uL (1.20-3.40); Lymphocytes % (auto) 39.1 %; Mean Corpuscular Hgb Conc 31.3 g/dL (32.0-36.0); Mean Corpuscular Volume 95.8 fL (80.0-100.0); Mean Platelet Volume 9.9 fL (9.4-12.4); Monocytes # (auto) 0.77 K/uL (0.11-0.59); Monocytes % (auto) 9.7 %; Neutrophils # (auto) 3.85 K/uL (1.40-6.50); Neutrophils % (auto) 48.7 %; Platelet Count 166 K/uL (130-400); RDW Coefficient of Variation 16.4 % (11.5-14.5); RDW Standard Deviation 58.1 fL (36.4-46.3); Red Blood Count 3.77 M/uL (4.20-5.40); White Blood Count 7.91 K/ul (4.8-10.8)
[2023-11-10 08:07] LABS: BUN Creatinine Ratio 20.4 (10-20); Calcium 8.9 mg/dl (8.6-10.3); Creatinine Clr Calc Pharmacy 82.6 ml/min; Est GFR (African American) 72.2 ml/min; Est GFR (Non-African American) 62.3 ml/min; Potassium 3.9 mmol/L (3.5-5.1)
[2023-11-10 08:12] LABS: Prothrombin Time 11.2 Seconds (9.0-12.0)
--- NOTE | 2023-11-10 11:12 | Discharge Summary ---
Date of Service November 10, 2023 Admission HPI Per Admitting Provider Elaine is a 62 year old female with a PMH significant for CAD S/P NSTEMI and PCI with Dr Pimentel on 12/04/22 (Acute 95% mid RCAstatus post JESSE, Subtotal mid LAD occlusionpost 2 JESSE, Residual ramus disease), Ischemic Cardiomyopathy (LVEF of 40-45% as of 05/11/2023), hyperlipemia, RADHA, UC who presented to the [facility] ED on 11/08/23 with complaints of left shoulder pain and SOB which began on the night of 11/07/23. Noted to be tachycardic at 100 and mildly hypertensive at 143/98 but otherwise stable. Labs were significant for a leukocytosis of 12 with neutrophil predominance of 9, D-dimer of 1380, initial high sen trop of 14 -->12 on 2 hour repeat. CXR noted possible left lung opacity. CTA of the chest with PE protocol was read as "1. Several subsegmental pulmonary emboli, as described above. 3.1 cm subpleural left lower lobe opacity favors a pulmonary infarct. A focus of pneumonia is considered less likely. 2. Small left pleural effusion, likely related to pulmonary infarct.". Pror to admission the patient was started on a heparin drip and given a dose of 4 mg IV morphine, 4 mg IV zofran, and 324 mg Aspirin. At the time of the exam the patient was sitting in bed in no acute distress. States that she woke from sleep around 0200 this am with acute onset of left shoulder pain, left sided chest pain with inspiration, and SOB. Denies worsening of symptoms when she ambulated to the bathroom, but symptoms progressed over the morning leading to her ED evaluation. She did take one Nitroglycerin tab which did not change her symptoms. Denies recent fever, chest pain at rest, cough, hemoptysis, nausea, vomiting, abd pain, dysuria, hematuria, melena, bloody BM's, and recent trauma. Of note, she is currently on a long prednisone taper due to a UC flare approximately 1.5 months ago. Over this time she has been very sedentary as she had issues with orthostatic hypotension with the recent UC flare. She denies recent long travel or trauma to the [facility]. She has noticed increased swelling in the LLE and cramping in the RLE over the past week. She is a full code. Principal Diagnosis Acute pulmonary embolism Discharge Exam The patient is awake, alert and oriented 3, well developed and well nourished, normocephalic and atraumatic, lying in bed and in no acute distress. HEENT--PERRL, EOMI, mucous membranes and oropharynx mildly dry Neck--supple. No JVD. No bruits. Thyroid normal, trachea midline, no adenopathy. Heart--normal S1 and S2. No murmurs, rubs or gallops. Lungs--clear bilaterally, no respiratory distress, no accessory muscle use. Abdomen--normal bowel sounds and soft. Extremities--no cyanosis or clubbing. No edema. Dermatologic--normal skin turgor, normal color, no abnormal lymph nodes, no rash. Neurologic--cranial nerves II through XII grossly intact. Rheumatologic--normal range of motion. Psychiatric--normal affect. Discharge Data Allergies Allergy/AdvReac Type Severity Reaction Status Date / Time No Known Allergies Allergy Verified 09/23/23 13:35 Consultations 11/08/23 13:06 ED Decision to Admit Stat Ordered Studies 11/08/23 11:25 CT angio chest PE protocol Stat 11/08/23 14:29 US venous doppler LE BI Routine Hospital Course (1) Pulmonary emboli: -Presents to the hospital with complaints of left shoulder pain pleuritic chest pain -Noted to have several subsegmental pulmonary emboli with likely pulmonary infarct in the LLL, -Bilateral lower extremity venous Doppler did not show any evidence of DVT and echo did not show any evidence of right ventricular heart strain -Patient has been sedentary over the past 1.5-2 months due to orthostatic hypotension related to recent UC flare -No recent travel or LE trauma -Initially started on IV heparin, has been transitioned to p.o. Eliquis 10 mg twice daily for 7 days then subsequently 5 mg twice daily -No adverse effects of Eliquis. Discharge home (2) Chest pain: -Patient's pleuritic left sided chest pain with associated left shoulder pain appears consistent with her acute PE's, pain is now resolved -Did have an NSTEMI last year with multiple JESSE placed by Dr. Pimentel -Patient denies discomfort at rest, denies these symptoms being similar to her previous NSTEMI -No acute ECG changes, she had the LBBB on her last admission for NSTEMI -Initial high sen trop elevated at 14 --> 12 on 2 hour repeat -Continue to monitor on tele -Monitor TTE (3) Ulcerative colitis: -Currently on a long prednisone taper due to flare approximately 1.5 months ago -Currently on 7 days of 10 mg daily -Denies recurrent bloody BM's since starting prednisone taper (4) Ischemic cardiomyopathy: -Euvolemic on exam -Will hold Spironolactone for now to prevent hypotension -Continue Entresto (5) Coronary artery disease: -Continue plavix (6) Hypertension: -Stable -Hold Spironolactone for now to prevent hypotension (7) Chronic combined systolic and diastolic CHF (congestive heart failure): Recent echo showed ejection fraction 35 to 40% with diastolic dysfunction Presently compensated Monitor input and output, daily weight (8) Morbid obesity: BMI 45.5 Patient was advised on diet and exercise Plan Discharge home Total Time Total Time Spent Total Time Spent (In Minutes): 35 Discharge Plan Discharge Items Patient Disposition: Home - Self-Care Reason For Visit: NEW PE'S Discharge Diagnosis: acute PE Activity: Resume your previous activity Lifting: Gradually increase as tolerated Non-emergency contact: Primary Care Provider Call non-emergency contact if: you have any medication questions Follow-up/Referrals: Phuong Hernandes DO [Primary Care Provider] - 11/19/23 8:20 am Diet: Regular Addtl Attending Provider Instructions: Please make appointment to follow-up with her regular PCP Pending Studies at Discharge: No Stand-Alone Forms: My [employer], Smoking Cessation Medications and DC Order Prescriptions: New Eliquis 5 mg (74 tabs) tablets,dose pack 5 mg PO BID Qty: 74 0RF Rx Instructions: Please take 10 mg twice daily for 6 days, then subsequently 5 mg twice daily Continued Entresto 49-51 mg tablet 1 tab PO BID Qty: 180 3RF atorvastatin 40 mg tablet 40 mg PO QAM Qty: 90 3RF clopidogrel 75 mg tablet 75 mg PO QAM Qty: 90 3RF cholecalciferol (vitamin D3) 1,250 mcg (50,000 unit) capsule 50,000 unit PO WEEKLY 56 Days Qty: 8 0RF spironolactone 25 mg tablet 25 mg PO DAILY Qty: 90 3RF Hold Instructions: dr. leggett put on hold metoprolol succinate 50 mg tablet extended release 24 hr 50 mg PO Q2D acetaminophen [Tylenol Extra Strength] 500 mg Tablet 1,000 mg PO DIRECTED PRN (Reason: PAIN/FEVER) nitroglycerin [Nitrostat] 0.4 mg Tablet, Sublingual 0.4 mg sublingual UD PRN (Reason: chest pain) Qty: 1 0RF Rx Instructions: Take 1 tablet if you have chest discomfort or shoulder pain, sit and rest the pain does not resolve report to emergency department meloxicam 15 mg tablet 15 mg PO DAILY PRN (Reason: Pain) prednisone 10 mg tablet 10 mg PO UD Discharge Orders: Discharge Order (Routine); Ordered 11/10/23 Ordered By: Dong Smith/Other Patient Handouts: Pulmonary Embolism, Pulmonary Embolism Dc Admission Data Admit Date/Time: 11/08/23 14:13 Attending Provider: Dong Chinchilla Admit Provider: Jerad Morel Primary Care Provider: Phuong Hernandes Other Providers: Jerad Morel Other Interventions: Discharge Summary Assessment (RN) Last Done: 11/10/23 10:03 Coding Level of Care Code 25211 INP/OBS DISCH >30 MIN Diagnoses Pulmonary emboli I26.99 Chest pain R07.9 Ulcerative colitis K51.90 Ischemic cardiomyopathy I25.5 Coronary artery disease I25.10 Hypertension I10 Chronic combined systolic and diastolic CHF (congestive heart failure) I50.42 Morbid obesity E66.01 Time Spent (min) 35
== END 2023-11-10 11:18 | disposition home or self-care (01) | DRG 176 ==
LOC: ED 08:43 → EDINP 14:13 → SUATTDRO 14:13 → 2N 14:18

== ENCOUNTER 2024-01-12 03:09 | Inpatient (IN) ==
--- NOTE | 2024-01-12 03:38 | Emergency Department Note ---
Impression & Plan Joint pain, Parainfluenza virus infection, Hypomagnesemia, CHLOE (acute kidney injury) ED Provider Note HISTORY OF PRESENT ILLNESS: Patient is a 63-year-old female presenting with diffuse bodyaches and joint pain. 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 Reports she was having rigors and laying under multiple blankets. Did not take her temperature. Reports that she took a Tylenol and tried to go to bed, but was awoken at midnight this morning with diffuse joint pain. Reports bilateral knees, elbows and wrists are "killing me." She has never had pain like this before. Denies any chest pain or shortness of breath. She reports nausea but no vomiting. She has had more than 10 episodes of diarrhea in the last 24 hours. States that this is new today. She did just recently start a new medication for ulcerative colitis and started it yesterday. She is on prednisone 20 mg currently, states that she is on a prolonged taper. Denies any recent antibiotic use. Patient denies any rashes. Denies any international travel. Denies any notable tick bites ROS: as above PHYSICAL EXAM: Constitutional: Patient appears in no acute distress. HENT: Head: Normocephalic and atraumatic. Eyes: EOMI, PERRL Mouth/Throat: Mucous membranes moist. Neck: Trachea midline. Neck supple. Cardiovascular: Tachycardic with regular rhythm. No murmurs, rubs or gallops. Intact distal pulses. Pulmonary/Chest: No respiratory distress. Breath sounds clear and equal bilaterally. No wheezes or rales. Abdominal: Abdomen soft, no tenderness, rebound or guarding. Musculoskeletal: No edema, tenderness or deformity noted. Skin: Warm and dry. No rash, erythema, pallor or cyanosis Psychiatric: Appropriate mood and affect for situation. Neurological: Alert and keenly responsive. CN II-XII grossly intact, moving all extremities equally and fully. MDM: - Vitals signs showed tachycardia - History obtained via patient. History as above. - Chronic conditions affecting care: HTN; CAD; HLD; LBBB; ischemic cardiomyopathy; PE (on Eliquis); morbid obesity; CHF - Differential diagnoses include, but are not limited to: viral syndrome; UTI; tick-borne illness; bacteremia - Order placed for continuous cardiac monitoring. At this time, monitor showed rate of 93 bpm with normal sinus rhythm, per my interpretation. - External medical records reviewed. Primary care visit note dated 11/19/2023 was reviewed. Patient follows in the clinic for her multiple chronic medical problems. Her meloxicam and spironolactone were discontinued - EKG interpreted by myself showed normal sinus rhythm. Rate tachycardic at 102 bpm. QT 360. No acute ischemic changes. Noted to have an intraventricular block. Also noted to have some PVCs. - Laboratory workup interpreted by myself showed normal WBC; normal PT/INR; normal potassium; CHLOE (Cr 1.66); slight hyperglycemia (glucose 108); hypomagnesemia (Mg 1.5); normal liver function; elevated troponin (24.6); normal procalcitonin - Blood cultures obtained. - CXR negative for pneumonia, per my interpretation - Patient given 2L NS, 4 mg IV zofran and 4 mg IV morphine on arrival to ER. 1g IV magnesium ordered for electrolyte replacement. - Viral respiratory panel positive for parainfluenza virus type 3. - Patient's joint pain likely secondary to her viral infection. However, Lyme and anaplasmosis testing added to workup - Discussion was had with shoe caser about patient's case and need for admission - Hospitalist consulted for admission [facility] ASSESSMENT AND PLAN: Diagnosis: joint pain; parainfluenza virus infection; CHLOE; hypomagnesemia Plan: admit Past Med/Surg History Problem List (Updated 01/12/24 @ 04:44 by Christie Cortes MD) CHLOE (acute kidney injury) (Acute) Hypomagnesemia (Acute) Parainfluenza virus infection (Acute) Joint pain (Acute) Chronic combined systolic and diastolic CHF (congestive heart failure) Chest pain Systolic CHF Right knee DJD Tobacco use Nocturnal hypoxemia Morbid obesity Pulmonary emboli discharged from [place] 11/10/23- Eliquis added Vitamin D deficiency Left bundle branch block Ischemic cardiomyopathy Dyslipidemia History of non-ST elevation myocardial infarction (NSTEMI) (11/2022) Coronary artery disease Hypertension Obstructive sleep apnea CPAP machine was recalled and has not gotten another one Ulcerative colitis Medical History Near syncope Morbid obesity History of recent fall Pulmonary emboli Vitamin D deficiency Left bundle branch block Dyslipidemia Coronary artery disease History of non-ST elevation myocardial infarction (NSTEMI) (11/2022) Obstructive sleep apnea Hypertension Ulcerative colitis Surgical History S/P right oophorectomy S/P coronary artery stent placement (11/2022) S/P complete hysterectomy S/P cholecystectomy S/P tonsillectomy Family History Grandmother (Maternal) Breast cancer Uncle Myocardial infarction Heart disease Father No problems noted. Mother Osteoarthritis Asthma Other Arthritis Cancer Hypertension Obstructive sleep apnea Urticaria Denies family history of Ovarian cancer Prostate cancer Colorectal cancer Social History Smoking Status: Former smoker Tobacco Type: Cigarettes Age Started Using Tobacco: 17; Age Quit Using Tobacco: 62; packs per day: 1; Second Hand Exposure: No; Do You Dip or Chew Tobacco: No; Hx Alcohol Use: No Hx Substance Use: No Preferred Language: Persian Communication Ability: Effective Visual Impairment: No Limitations Hearing Ability: Normal Headlight Adjuster Required: No Beliefs That Will Affect Care: None marital status: Current Living Situation: Spouse Current Living Situation Comment: , brother current occupational status: disabled How many Children do You have: 0 Feels Safe at Home: Yes Childhood Exposure to Second-Hand Smoke: Yes Diet: other Diet Comment: Has UC- low fiber, high protien diet caffeine: Yes during the past year weight has: remained stable Dental Care, Regularly: No Physical Activity Frequency: Daily 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 Seatbelt Use: always Sunscreen Use: Yes Assistive Devices: Denture - Upper, Denture - Lower and Glasses Allergies Allergies Allergy/AdvReac Type Severity Reaction Status Date / Time No Known Allergies Allergy Verified 11/22/23 16:36 Home Meds Home Medications Medication Instructions Recorded Confirmed acetaminophen 500 mg tablet 1,000 mg PO DIRECTED PRN 12/03/22 11/22/23 (Tylenol Extra Strength) PAIN/FEVER prednisone 10 mg tablet 5 mg PO QAM 11/08/23 11/22/23 Previous Rx's Medication Instructions Recorded nitroglycerin 0.4 mg sublingual 0.4 mg sublingual UD PRN chest 12/06/22 tablet (Nitrostat) pain #1 btl atorvastatin 40 mg tablet 40 mg PO QAM #90 tabs 06/03/23 clopidogrel 75 mg tablet 75 mg PO QAM #90 tabs 06/03/23 spironolactone 25 mg tablet 25 mg PO DAILY #90 tabs 09/14/23 cholecalciferol (vitamin D3) 1,250 50,000 unit PO WEEKLY 8 weeks #8 10/26/23 mcg (50,000 unit) capsule caps peg 3350-electrolytes 236 240 ml PO Q10M #4,000 mL 11/19/23 gram-22.74 gram-6.74 gram-5.86 gram solution (GaviLyte-G) metoprolol succinate 25 mg 25 mg PO DAILY #30 tabs 11/22/23 tablet,extended release 24 hr sacubitril 24 mg-valsartan 26 mg 1 tab PO BID #60 tabs 11/22/23 tablet (Entresto) prednisone 10 mg tablet 10 mg PO DAILY #128 tabs 12/10/23 apixaban 5 mg (74 tabs) tablets in 5 mg PO BID #180 ea 12/13/23 a dose pack (Eliquis) mesalamine 1.2 gram tablet,delayed 2.4 g (2 x 1.2 gram) PO BID #120 12/14/23 release tabs Results & Data (ED) Vital Signs Vital Signs - 24 hr 01/12/24 03:13 01/12/24 03:39 01/12/24 03:45 Temperature 37.2 C Temperature Source Temporal Artery Scan Pulse Rate 100 H 88 108 H Pulse Rate from SpO2 Sensor Pulse Rhythm Regular Pulse Strength Normal Respiratory Rate 18 26 H Respiratory Effort / Characteristics Non-Labored Spontaneous Respiratory Depth Normal Respiratory Pattern Regular Blood Pressure 108/76 111/69 Blood Pressure Mean 86 83 Blood Pressure Position Sitting Pulse Oximetry 96 96 Oxygen Delivery Method Room Air Room Air Sepsis Recent Fever Within 48 Hours No Sepsis New/Unexplained Change in Mental Status N/A Sepsis Action Taken by Nursing No Action Required 01/12/24 04:24 01/12/24 04:27 01/12/24 04:31 Temperature Temperature Source Pulse Rate 88 84 Pulse Rate from SpO2 Sensor 86 76 Pulse Rhythm Pulse Strength Respiratory Rate 22 21 Respiratory Effort / Characteristics Respiratory Depth Respiratory Pattern Blood Pressure 110/79 Blood Pressure Mean 84 Blood Pressure Position Pulse Oximetry 95 96 Oxygen Delivery Method Sepsis Recent Fever Within 48 Hours Sepsis New/Unexplained Change in Mental Status Sepsis Action Taken by Nursing Laboratory Data 01/12/24 03:16 01/12/24 03:16 Lab Results 01/12/24 01/12/24 01/12/24 Range/Units 03:16 03:32 03:35 WBC 8.81 (4.8-10.8) K/ul RBC 4.30 (4.20-5.40) M/uL Hgb 13.0 (12.0-16.0) g/dl Hct 40.0 (37.0-47.0) % MCV 93.0 (80.0-100.0) fL MCH 30.2 (25.0-34.0) pg MCHC 32.5 (32.0-36.0) g/dL RDW Std Deviation 45.9 (36.4-46.3) fL RDW Coeff of Essie 13.5 (11.5-14.5) % Plt Count 235 (130-400) K/uL MPV 10.1 (9.4-12.4) fL Immature Gran % (Auto) 0.3 % Neut % (Auto) 59.1 % Lymph % (Auto) 26.7 % [place] % (Auto) 9.9 % Eos % (Auto) 3.5 % Baso % (Auto) 0.5 % Neut # (Auto) 5.21 (1.40-6.50) K/uL Lymph # (Auto) 2.35 (1.20-3.40) K/uL [place] # (Auto) 0.87 H (0.11-0.59) K/uL Eos # (Auto) 0.31 (0.00-0.50) K/uL Baso # (Auto) 0.04 (0.00-0.20) K/uL Immature Gran # (Auto) 0.03 (0.01-0.20) K/uL PT 11.1 (9.0-12.0) Seconds INR 1.0 (0.9-1.1) VBG pH (7.36-7.41) VBG pCO2 (38-50) mmHg VBG pO2 mmHg VBG HCO3 mmol/L VBG O2 Saturation % VBG Base Excess mEq/L Sodium 136 (136-145) mmol/L Potassium 3.8 (3.5-5.1) mmol/L Chloride 105 (98-107) mmol/L Carbon Dioxide 20 L (21-32) mmol/L Anion Gap 11 (3-11) BUN 30 H (6-23) mg/dl Creatinine 1.66 H (0.6-1.2) mg/dl Est Cr Clr Drug Dosing 48.9 ml/min Est GFR ( Amer) 38.2 ml/min Est GFR (Non-Af Amer) 32.9 ml/min BUN/Creatinine Ratio 18.1 (10-20) Glucose 108 H (70-99(Fasting)) mg/dl Lactate 2.0 (0.4-2.0) mmol/L Calcium 9.1 (8.6-10.3) mg/dl Magnesium 1.5 L (1.7-2.4) mg/dl Total Bilirubin 0.7 (0.2-1.0) mg/dl Direct Bilirubin 0.2 (0-0.2) mg/dl AST 14 (13-39) U/L ALT 17 (7-52) U/L Alkaline Phosphatase 66 (34-104) U/L Troponin I High Sens 24.6 H (0-14) pg/ml Total Protein 6.9 (6.0-8.3) gm/dl Albumin 3.4 (3.4-5.0) gm/dl Procalcitonin 0.47 (0-0.5) ng/ml Adenovirus (PCR) Not Detected (NotDetected) B. pertussis DNA (PCR) Not Detected (NotDetected) B.parapertussis DNA PCR Not Detected (NotDetected) Lyme Disease Screen Cancelled C. pneumoniae DNA (PCR) Not Detected (NotDetected) Coronavirus OC43 (PCR) Not Detected (NotDetected) Coronavirus HKU1 (PCR) Not Detected (NotDetected) Coronavirus 229E (PCR) Not Detected (NotDetected) SARS-CoV-2 (PCR) Not Detected (NotDetected) Coronavirus NL63 (PCR) Not Detected (NotDetected) Human Metapneumovir PCR Not Detected (NotDetected) Influenza Type A (PCR) Not Detected (NotDetected) Influenza Type B (PCR) Not Detected (NotDetected) M. pneumoniae (PCR) Not Detected (NotDetected) Parainfluenza 1 (PCR) Not Detected (NotDetected) Parainfluenza 2 (PCR) Not Detected (NotDetected) Parainfluenza 3 (PCR) DETECTED A (NotDetected) Parainfluenza 4 (PCR) Not Detected (NotDetected) RSV (PCR) Not Detected (NotDetected) Entero/Rhino (PCR) Not Detected (NotDetected) 01/12/24 Range/Units 03:49 WBC (4.8-10.8) K/ul RBC (4.20-5.40) M/uL Hgb (12.0-16.0) g/dl Hct (37.0-47.0) % MCV (80.0-100.0) fL MCH (25.0-34.0) pg MCHC (32.0-36.0) g/dL RDW Std Deviation (36.4-46.3) fL RDW Coeff of Essie (11.5-14.5) % Plt Count (130-400) K/uL MPV (9.4-12.4) fL Immature Gran % (Auto) % Neut % (Auto) % Lymph % (Auto) % [place] % (Auto) % Eos % (Auto) % Baso % (Auto) % Neut # (Auto) (1.40-6.50) K/uL Lymph # (Auto) (1.20-3.40) K/uL [place] # (Auto) (0.11-0.59) K/uL Eos # (Auto) (0.00-0.50) K/uL Baso # (Auto) (0.00-0.20) K/uL Immature Gran # (Auto) (0.01-0.20) K/uL PT (9.0-12.0) Seconds INR (0.9-1.1) VBG pH 7.45 H (7.36-7.41) VBG pCO2 31 L (38-50) mmHg VBG pO2 67 mmHg VBG HCO3 22 mmol/L VBG O2 Saturation 93.5 % VBG Base Excess -1.6 mEq/L Sodium (136-145) mmol/L Potassium (3.5-5.1) mmol/L Chloride (98-107) mmol/L Carbon Dioxide (21-32) mmol/L Anion Gap (3-11) BUN (6-23) mg/dl Creatinine (0.6-1.2) mg/dl Est Cr Clr Drug Dosing ml/min Est GFR ( Amer) ml/min Est GFR (Non-Af Amer) ml/min BUN/Creatinine Ratio (10-20) Glucose (70-99(Fasting)) mg/dl Lactate (0.4-2.0) mmol/L Calcium (8.6-10.3) mg/dl Magnesium (1.7-2.4) mg/dl Total Bilirubin (0.2-1.0) mg/dl Direct Bilirubin (0-0.2) mg/dl AST (13-39) U/L ALT (7-52) U/L Alkaline Phosphatase (34-104) U/L Troponin I High Sens (0-14) pg/ml Total Protein (6.0-8.3) gm/dl Albumin (3.4-5.0) gm/dl Procalcitonin (0-0.5) ng/ml Adenovirus (PCR) (NotDetected) B. pertussis DNA (PCR) (NotDetected) B.parapertussis DNA PCR (NotDetected) Lyme Disease Screen C. pneumoniae DNA (PCR) (NotDetected) Coronavirus OC43 (PCR) (NotDetected) Coronavirus HKU1 (PCR) (NotDetected) Coronavirus 229E (PCR) (NotDetected) SARS-CoV-2 (PCR) (NotDetected) Coronavirus NL63 (PCR) (NotDetected) Human Metapneumovir PCR (NotDetected) Influenza Type A (PCR) (NotDetected) Influenza Type B (PCR) (NotDetected) M. pneumoniae (PCR) (NotDetected) Parainfluenza 1 (PCR) (NotDetected) Parainfluenza 2 (PCR) (NotDetected) Parainfluenza 3 (PCR) (NotDetected) Parainfluenza 4 (PCR) (NotDetected) RSV (PCR) (NotDetected) Entero/Rhino (PCR) (NotDetected) Administered Medications Discontinued Medications Sodium Chloride (Nss) 1,000 mls @ 999 mls/hr IV .Q1H1M [place] Stop: 01/12/24 04:30 Last Admin: 01/12/24 03:55 Dose: 999 mls/hr Documented By: BARRETT Morphine Sulfate (Morphine Sulfate 4 Mg/Ml 1 Ml Carp\\Vial) 4 mg IV NOW STA Stop: 01/12/24 03:36 Last Admin: 01/12/24 03:57 Dose: 4 mg Documented By: BARRETT Ondansetron HCl (Ondansetron Inj 2 Mg/Ml 2 Ml Vial) 4 mg IV NOW STA Stop: 01/12/24 03:36 Last Admin: 01/12/24 03:57 Dose: 4 mg Documented By: BARRETT Discharge Plan Visit Data Chief Complaint: Illness ED Provider: Christie Cortes Discharge Problem: Joint pain, Parainfluenza virus infection, Hypomagnesemia, CHLOE (acute kidney injury) Forms Stand Alone Forms: My [facility] Prescriptions Prescriptions: No Action atorvastatin 40 mg tablet 40 mg PO QAM Qty: 90 3RF clopidogrel 75 mg tablet 75 mg PO QAM Qty: 90 3RF cholecalciferol (vitamin D3) 1,250 mcg (50,000 unit) capsule 50,000 unit PO WEEKLY 56 Days Qty: 8 0RF peg 3350-electrolytes [GaviLyte-G] 236-22.74-6.74 -5.86 gram recon soln 240 ml PO Q10M Qty: 4000 0RF Rx Instructions: until fecal effluent is clear prednisone 10 mg tablet 10 mg PO DAILY Qty: 128 0RF Rx Instructions: start 40mg daily for 1 week followed by a decrease by 5mg a week for a total of 8 weeks. Eliquis 5 mg (74 tabs) tablets,dose pack 5 mg PO BID Qty: 180 0RF Rx Instructions: 5 mg twice daily mesalamine 1.2 gram tablet,delayed release (DR/EC) 2.4 g PO BID Qty: 120 5RF spironolactone 25 mg tablet 25 mg PO DAILY Qty: 90 3RF Hold Instructions: d/t UC/dehydration Entresto 24-26 mg tablet 1 tab PO BID Qty: 60 6RF metoprolol succinate 25 mg tablet extended release 24 hr 25 mg PO DAILY Qty: 30 6RF acetaminophen [Tylenol Extra Strength] 500 mg Tablet 1,000 mg PO DIRECTED PRN (Reason: PAIN/FEVER) nitroglycerin [Nitrostat] 0.4 mg Tablet, Sublingual 0.4 mg sublingual UD PRN (Reason: chest pain) Qty: 1 0RF Rx Instructions: Take 1 tablet if you have chest discomfort or shoulder pain, sit and rest the pain does not resolve report to emergency department prednisone 10 mg tablet 5 mg PO QAM Referrals Referrals: Phuong Hernandes DO [Primary Care Provider] -
[2024-01-12] MEDS: SODIUM CHLORIDE 0.9% 1,000 ML IV SCH (03:55)
[2024-01-12] MEDS: ONDANSETRON INJ 2 MG/ML 2 ML VIAL IV STA (03:57)
[2024-01-12] MEDS: MoRPHine SULFATE 4 MG/ML 1 ML CARP\\VIAL IV STA (03:57)
[2024-01-12 04:04] LABS: Base Excess VBG -1.6 mEq/L; HCO3 VBG 22 mmol/L; Oxygen Saturation VBG 93.5 %; PCO2 VBG 31 mmHg (38-50); PO2 VBG 67 mmHg; pH VBG 7.45 (7.36-7.41)
[2024-01-12 04:09] LABS: Basophils # (auto) 0.04 K/uL (0.00-0.20); Basophils % (auto) 0.5 %; Eosinophils # (auto) 0.31 K/uL (0.00-0.50); Eosinophils % (auto) 3.5 %; Immature Granulocytes # (auto) 0.03 K/uL (0.01-0.20); Immature Granulocytes % (auto) 0.3 %; Lymphocytes # (auto) 2.35 K/uL (1.20-3.40); Lymphocytes % (auto) 26.7 %; Mean Corpuscular Hemoglobin 30.2 pg (25.0-34.0); Mean Corpuscular Hgb Conc 32.5 g/dL (32.0-36.0); Mean Platelet Volume 10.1 fL (9.4-12.4); Monocytes # (auto) 0.87 K/uL (0.11-0.59); Monocytes % (auto) 9.9 %; Neutrophils # (auto) 5.21 K/uL (1.40-6.50); Neutrophils % (auto) 59.1 %; Platelet Count 235 K/uL (130-400); RDW Coefficient of Variation 13.5 % (11.5-14.5); RDW Standard Deviation 45.9 fL (36.4-46.3); White Blood Count 8.81 K/ul (4.8-10.8)
[2024-01-12 04:23] LABS: Albumin Level 3.4 gm/dl (3.4-5.0); BUN Creatinine Ratio 18.1 (10-20); Bilirubin Direct 0.2 mg/dl (0-0.2); Bilirubin,Total 0.7 mg/dl (0.2-1.0); Calcium 9.1 mg/dl (8.6-10.3); Creatinine Clr Calc Pharmacy 48.9 ml/min; Est GFR (African American) 38.2 ml/min; Est GFR (Non-African American) 32.9 ml/min; Magnesium 1.5 mg/dl (1.7-2.4); Potassium 3.8 mmol/L (3.5-5.1); Total Protein 6.9 gm/dl (6.0-8.3)
[2024-01-12 04:29] LABS: Troponin I High Sensitivity 24.6 pg/ml (0-14)
[2024-01-12 04:32] LABS: Prothrombin Time 11.1 Seconds (9.0-12.0)
[2024-01-12 04:33] LABS: Adenovirus PCR Not Detected (NotDetected); Bordetella parapertussis PCR Not Detected (NotDetected); Bordetella pertussis PCR Not Detected (NotDetected); Chlamydia pneumoniae PCR Not Detected (NotDetected); Coronavirus 229E PCR Not Detected (NotDetected); Coronavirus CoV-2 (COVID19)PCR Not Detected (NotDetected); Coronavirus HKU1 PCR Not Detected (NotDetected); Coronavirus NL63 PCR Not Detected (NotDetected); Coronavirus OC43PCR Not Detected (NotDetected); Human Metapneumovirus PCR Not Detected (NotDetected); Influenza A PCR Not Detected (NotDetected); Influenza B PCR Not Detected (NotDetected); Mycoplasma pneumoniae PCR Not Detected (NotDetected); Parainfluenza Virus 1 PCR Not Detected (NotDetected); Parainfluenza Virus 2 PCR Not Detected (NotDetected); Parainfluenza Virus 3 PCR DETECTED (NotDetected); Parainfluenza Virus 4 PCR Not Detected (NotDetected); Respiratory Syncytial VirusPCR Not Detected (NotDetected); Rhinovirus/Enterovirus PCR Not Detected (NotDetected)
[2024-01-12 04:35] LABS: Procalcitonin 0.47 ng/ml (0-0.5)
--- NOTE | 2024-01-12 04:51 | History & Physical Report ---
Date of Service January 12, 2024 Assessment & Plan (1) Lyme disease: Plan: Patient with history of tick bite approximately one month ago. Lyme testing is POSITIVE in the ER. Possible cause for patient's diffuse joint pain that occurred prior to arrival. -Confirmatory panel pending -Anaplasmosis pending -Doxycycline 100mg IV BID (2) Parainfluenza virus infection: Plan: Patient reports cough ongoing for the last several days. Biofire panel POSITIVE for parainfluenza virus. -Droplet precautions (3) CHLOE (acute kidney injury): Plan: Elevation of BUN and Cr from baseline -Continue IVF - LR at 125mL/hr x 1L -Repeat chemistry in AM -Hold Entresto -Renal dosing where needed (4) Elevated troponin: Plan: Patient with history of CAD s/p NSTEMI with stenting. She is compliant with her medications. Denies chest pain. Mildly elevated troponin at 24.6. No ischemic EKG changes -Telemetry monitoring -Trend troponin to peak -Continue home Plavix, Atorvastatin, Metoprolol -Hold Entresto in setting of Cr elevation Plan Ulcerative colitis - patient reports stable symptoms -Continue Mesalamine -Continue Prednisone- 20mg daily until 01/14 then 15mg daily CAD - no chest pain -Continue Plavix, Atorvastatin, Metoprolol -Holding Entresto in setting of Cr elevation History of PE -Continue Apixaban RADHA - patient does not use CPAP F/E/N - LR at 125mL/hr x 1L, Mg repleted, repeat chemistry and Mg level in AM, Heart Healthy diet Ppx - On Apixaban Code - Full Dispo - Observation to medical with telemetry History of Present Illness Chief Complaint: illness Primary Care Provider: DO Elaine Soto is a pleasant 63yo female with history of CAD s/p NSTEMI s/p placement of coronary stents x 3, RADHA, Ulcerative Colitis and prior PE on Eliquis anticoagulation presenting with acute onset of chills. Patient has had a slight productive cough for the last couple of days. This evening around 17:30 she developed severe chills and was unable to get warm. Later in the evening she felt very warm and developed diffuse body pain and soreness in her joints as well as nausea. She did not have a fever. Denies abdominal pain, vomiting. She has chronic diarrhea with no acute change. No additional complaints. She did have a tick bite a month ago but did not develop a rash. She recently started on Mesalamine for management of her Ulcerative Colitis She is on a slow prednisone taper - is currently on 20mg daily until Wednesday when she is decreasing to 15mg daily Allergies Allergy/AdvReac Type Severity Reaction Status Date / Time No Known Allergies Allergy Verified 11/22/23 16:36 Home Medications Medication Instructions Recorded Confirmed Type acetaminophen 500 mg tablet 1,000 mg PO DIRECTED PRN 12/03/22 01/12/24 History (Tylenol Extra Strength) PAIN/FEVER nitroglycerin 0.4 mg sublingual 0.4 mg sublingual UD PRN chest 12/06/22 01/12/24 Rx tablet (Nitrostat) pain #1 btl atorvastatin 40 mg tablet 40 mg PO QAM #90 tabs 06/03/23 01/12/24 Rx clopidogrel 75 mg tablet 75 mg PO QAM #90 tabs 06/03/23 01/12/24 Rx spironolactone 25 mg tablet 25 mg PO DAILY #90 tabs 09/14/23 11/19/23 Rx cholecalciferol (vitamin D3) 1,250 50,000 unit PO WEEKLY 8 weeks #8 10/26/23 01/12/24 Rx mcg (50,000 unit) capsule caps prednisone 10 mg tablet 5 mg PO QAM 11/08/23 11/22/23 History peg 3350-electrolytes 236 240 ml PO Q10M #4,000 mL 11/19/23 11/22/23 Rx gram-22.74 gram-6.74 gram-5.86 gram solution (GaviLyte-G) metoprolol succinate 25 mg 25 mg PO DAILY #30 tabs 11/22/23 01/12/24 Rx tablet,extended release 24 hr sacubitril 24 mg-valsartan 26 mg 1 tab PO BID #60 tabs 11/22/23 01/12/24 Rx tablet (Entresto) apixaban 5 mg (74 tabs) tablets in 5 mg PO BID #180 ea 12/13/23 01/12/24 Rx a dose pack (Eliquis) mesalamine 1.2 gram tablet,delayed 2.4 g (2 x 1.2 gram) PO BID #120 12/14/23 01/12/24 Rx release tabs prednisone 10 mg tablet 20 mg PO DAILY 01/12/24 01/12/24 History Past Med/Surg History Problem List (Updated 01/12/24 @ 05:56 by Susannah Bender DO) Elevated troponin Lyme disease Non-ST elevation [place] (NSTEMI) (Acute) CHLOE (acute kidney injury) (Acute) Hypomagnesemia (Acute) Parainfluenza virus infection (Acute) Joint pain (Acute) Chronic combined systolic and diastolic CHF (congestive heart failure) Chest pain Systolic CHF Right knee DJD Tobacco use Nocturnal hypoxemia Morbid obesity Pulmonary emboli discharged from [facility] 11/10/23- Eliquis added Vitamin D deficiency Left bundle branch block Ischemic cardiomyopathy Dyslipidemia History of non-ST elevation myocardial infarction (NSTEMI) (11/2022) Coronary artery disease Hypertension Obstructive sleep apnea CPAP machine was recalled and has not gotten another one Ulcerative colitis Medical History Near syncope last episode, 11/13/23 states felt like legs just gave out, no LOC but felt like she was going to "pass out" causing the fall, will see Dr Pimentel for evaluation on 11/22/23 and to see pcp Dr Hernandes 11/19/23- episodes started ~ 08/2023 History of recent fall 11/13/23 states felt like legs just gave out, no LOC but states felt like she was going to "pass out" causing fall, will see Dr Pimentel for evaluation on 11/22/[address] Hernandes 11/19/23 - episodes started ~ 08/2023 Surgical History S/P right oophorectomy S/P coronary artery stent placement (11/2022) JESSE to RCA, JESSE x 2 to mid LAD-- S/P complete hysterectomy d/t ovarian cyst S/P cholecystectomy S/P tonsillectomy Family History Grandmother (Maternal) Breast cancer Uncle Myocardial infarction Heart disease Father No problems noted. Mother Osteoarthritis Asthma Other Arthritis Cancer Hypertension Obstructive sleep apnea Urticaria Denies family history of Ovarian cancer Prostate cancer Colorectal cancer Social History Smoking Status: Former smoker Tobacco Type: Cigarettes Age Started Using Tobacco: 17; Age Quit Using Tobacco: 62; packs per day: 1; Second Hand Exposure: No; Do You Dip or Chew Tobacco: No; Hx Alcohol Use: No Hx Substance Use: No Preferred Language: Prydein[place] Communication Ability: Effective Visual Impairment: No Limitations Hearing Ability: Normal Route Sales Person Required: No Beliefs That Will Affect Care: None marital status: Current Living Situation: Spouse Current Living Situation Comment: , brother current occupational status: disabled How many Children do You have: 0 Feels Safe at Home: Yes Childhood Exposure to Second-Hand Smoke: Yes Diet: other Diet Comment: Has UC- low fiber, high protien diet caffeine: Yes during the past year weight has: remained stable Dental Care, Regularly: No Physical Activity Frequency: Daily 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 Seatbelt Use: always Sunscreen Use: Yes Assistive Devices: Denture - Upper, Denture - Lower and Glasses Review of Systems Review of Systems: All systems reviewed & are unremarkable except as noted in HPI & below Physical Exam Physical Exam: General: patient resting comfortably, NAD, non-toxic in appearance, AA&O x 4 Skin: warm, dry, intact, no rashes or lesions HEENT: NC/AT, PERRL, EOMI, anicteric sclera, conjunctiva without injection, external ear normal to inspection and nontender, nares patent, moist mucus membranes, dentition intact, no oropharyngeal lesions, neck supple, trachea midline, no LAD, no thyromegaly, no JVD Heart: +S1/S2, regular, no m/r/g Lungs: equal air entry bilaterally, no rales/rhonchi/wheezes Abd: +BS, soft, NT/ND, no masses/organomegaly/ascites Ext: warm, 2+ pulses in UE/LE bilaterally, no clubbing/cyanosis or edema Neuro: nonfocal, patient AA&O x 4, speech intact, no facial droop, moving all extremities on command with equal strength 5/5 Results & Data Results & Data Vital Signs (Past 12 Hours) Vital Signs Temp Pulse Resp BP Pulse Ox O2 Del Method 01/12/24 04:31 110/79 01/12/24 04:27 84 21 96 01/12/24 04:24 88 22 95 01/12/24 03:45 108 H 01/12/24 03:39 88 26 H 111/69 96 Room Air 01/12/24 03:13 37.2 C 100 H 18 108/76 96 Room Air Laboratory Results Laboratory Results WBC 8.81 K/ul (4.8-10.8) 01/12/24 03:16 RBC 4.30 M/uL (4.20-5.40) 01/12/24 03:16 Hgb 13.0 g/dl (12.0-16.0) 01/12/24 03:16 Hct 40.0 % (37.0-47.0) 01/12/24 03:16 MCV 93.0 fL (80.0-100.0) 01/12/24 03:16 MCH 30.2 pg (25.0-34.0) 01/12/24 03:16 MCHC 32.5 g/dL (32.0-36.0) 01/12/24 03:16 RDW Std Deviation 45.9 fL (36.4-46.3) 01/12/24 03:16 RDW Coeff of Essie 13.5 % (11.5-14.5) 01/12/24 03:16 Plt Count 235 K/uL (130-400) 01/12/24 03:16 MPV 10.1 fL (9.4-12.4) 01/12/24 03:16 Immature Gran % (Auto) 0.3 % 01/12/24 03:16 Neut % (Auto) 59.1 % 01/12/24 03:16 Lymph % (Auto) 26.7 % 01/12/24 03:16 Villalba % (Auto) 9.9 % 01/12/24 03:16 Eos % (Auto) 3.5 % 01/12/24 03:16 Baso % (Auto) 0.5 % 01/12/24 03:16 Neut # (Auto) 5.21 K/uL (1.40-6.50) 01/12/24 03:16 Lymph # (Auto) 2.35 K/uL (1.20-3.40) 01/12/24 03:16 Villalba # (Auto) 0.87 K/uL (0.11-0.59) H 01/12/24 03:16 Eos # (Auto) 0.31 K/uL (0.00-0.50) 01/12/24 03:16 Baso # (Auto) 0.04 K/uL (0.00-0.20) 01/12/24 03:16 Immature Gran # (Auto) 0.03 K/uL (0.01-0.20) 01/12/24 03:16 PT 11.1 Seconds (9.0-12.0) 01/12/24 03:16 INR 1.0 (0.9-1.1) 01/12/24 03:16 VBG pH 7.45 (7.36-7.41) H 01/12/24 03:49 VBG pCO2 31 mmHg (38-50) L 01/12/24 03:49 VBG pO2 67 mmHg 01/12/24 03:49 VBG HCO3 22 mmol/L 01/12/24 03:49 VBG O2 Saturation 93.5 % 01/12/24 03:49 VBG Base Excess -1.6 mEq/L 01/12/24 03:49 Sodium 136 mmol/L (136-145) 01/12/24 03:16 Potassium 3.8 mmol/L (3.5-5.1) 01/12/24 03:16 Chloride 105 mmol/L (98-107) 01/12/24 03:16 Carbon Dioxide 20 mmol/L (21-32) L 01/12/24 03:16 Anion Gap 11 (3-11) 01/12/24 03:16 BUN 30 mg/dl (6-23) H 01/12/24 03:16 Creatinine 1.66 mg/dl (0.6-1.2) H 01/12/24 03:16 Est Cr Clr Drug Dosing 48.9 ml/min 01/12/24 03:16 Est GFR ( Amer) 38.2 ml/min 01/12/24 03:16 Est GFR (Non-Af Amer) 32.9 ml/min 01/12/24 03:16 BUN/Creatinine Ratio 18.1 (10-20) 01/12/24 03:16 Glucose 108 mg/dl (70-99(Fasting)) H 01/12/24 03:16 Lactate 2.0 mmol/L (0.4-2.0) 01/12/24 03:16 Calcium 9.1 mg/dl (8.6-10.3) 01/12/24 03:16 Magnesium 1.5 mg/dl (1.7-2.4) L 01/12/24 03:16 Total Bilirubin 0.7 mg/dl (0.2-1.0) 01/12/24 03:16 Direct Bilirubin 0.2 mg/dl (0-0.2) 01/12/24 03:16 AST 14 U/L (13-39) 01/12/24 03:16 ALT 17 U/L (7-52) 01/12/24 03:16 Alkaline Phosphatase 66 U/L (34-104) 01/12/24 03:16 Troponin I High Sens 24.6 pg/ml (0-14) H 01/12/24 03:16 Total Protein 6.9 gm/dl (6.0-8.3) 01/12/24 03:16 Albumin 3.4 gm/dl (3.4-5.0) 01/12/24 03:16 Procalcitonin 0.47 ng/ml (0-0.5) 01/12/24 03:16 Adenovirus (PCR) Not Detected (NotDetected) 01/12/24 03:32 B. pertussis DNA (PCR) Not Detected (NotDetected) 01/12/24 03:32 B.parapertussis DNA PCR Not Detected (NotDetected) 01/12/24 03:32 Lyme Disease Screen Cancelled 01/12/24 03:35 Lyme Tier 2 IgG Confirm Positive (Negative) H 01/12/24 03:16 Lyme Tier 2 IgM Confirm Negative (Negative) 01/12/24 03:16 C. pneumoniae DNA (PCR) Not Detected (NotDetected) 01/12/24 03:32 Coronavirus OC43 (PCR) Not Detected (NotDetected) 01/12/24 03:32 Coronavirus HKU1 (PCR) Not Detected (NotDetected) 01/12/24 03:32 Coronavirus 229E (PCR) Not Detected (NotDetected) 01/12/24 03:32 SARS-CoV-2 (PCR) Not Detected (NotDetected) 01/12/24 03:32 Coronavirus NL63 (PCR) Not Detected (NotDetected) 01/12/24 03:32 Human Metapneumovir PCR Not Detected (NotDetected) 01/12/24 03:32 Influenza Type A (PCR) Not Detected (NotDetected) 01/12/24 03:32 Influenza Type B (PCR) Not Detected (NotDetected) 01/12/24 03:32 M. pneumoniae (PCR) Not Detected (NotDetected) 01/12/24 03:32 Parainfluenza 1 (PCR) Not Detected (NotDetected) 01/12/24 03:32 Parainfluenza 2 (PCR) Not Detected (NotDetected) 01/12/24 03:32 Parainfluenza 3 (PCR) DETECTED (NotDetected) A 01/12/24 03:32 Parainfluenza 4 (PCR) Not Detected (NotDetected) 01/12/24 03:32 RSV (PCR) Not Detected (NotDetected) 01/12/24 03:32 Entero/Rhino (PCR) Not Detected (NotDetected) 01/12/24 03:32 Code Status & VTE Plan VTE Prophylaxis Plan VTE Prophylaxis will be ordered: Yes PG Care Time/CCT Total # of Minutes Spent Total Time Spent with Patient: Total time spent is greater than 50% in coordination of care (as documented) at patient's floor/unit and/or counseling patient: Coding Level of Care Code 86472 INT INP/OBS CARE 2/55MIN Diagnoses Lyme disease A69.20 Parainfluenza virus infection B34.8 CHLOE (acute kidney injury) N17.9 Elevated troponin R79.89
[2024-01-12] MEDS: MAGNESIUM SULFATE / D5W 1 GM/100 ML BAG IV STA (04:57)
[2024-01-12] MEDS: SODIUM CHLORIDE 0.9% 2,000 ML IV ONE (04:57)
[2024-01-12 05:00] LABS: Lyme Screen Rflx Confirmation Positive (Negative)
[2024-01-12 05:34] LABS: Lyme Ab IgG 2nd Tier Confirm Positive (Negative)
[2024-01-12 05:35] LABS: Lyme Ab IgM 2nd Tier Confirm Negative (Negative)
[2024-01-12] MEDS: LACTATED RINGER'S 1,000 ML IV SCH (05:57)
[2024-01-12] MEDS: DOXYCYCLINE HYCLATE 100 MG in DEXTROSE 5% MINI-B 100 ML IV STA (06:06)
--- NOTE | 2024-01-12 06:59 | XRay Report ---
SINGLE VIEW CHEST CLINICAL HISTORY: Sepsis. FINDINGS: 2 AP, portable, upright chest radiographs are compared to chest x-ray and chest CT dated . The cardiomediastinal silhouette is top normal for projection. There is mild bibasilar atele ctasis. The lungs and pleural spaces are otherwise clear. No pneumothorax is seen. The skeletal struc tures are osteopenic. The bony thorax is grossly intact. IMPRESSION: No active disease in the chest. ACT 112: Negative or not required by law. Electronically signed by: Silas Plata M.D. 01/12/2024 6:58 AM
[2024-01-12] MEDS: APIXABAN 5 MG TABLET PO SCH (09:44)
[2024-01-12] MEDS: ATORVASTATIN 40 MG TAB PO SCH (09:44)
[2024-01-12] MEDS: predniSONE 20 MG TAB PO SCH (09:44)
[2024-01-12] MEDS: CLOPIDOGREL BISULFATE 75 MG TAB PO SCH (09:44)
[2024-01-12] MEDS: METOPROLOL SUCC 25MG EXT REL TAB PO SCH (09:45)
[2024-01-12 13:03] LABS: Appearance Urine Cloudy (Clear); Bacteria Urine Automated 1+ (None Seen); Bilirubin Urine Negative (Negative); Blood Urine Negative (Negative); Color Urine Yellow; Glucose Urine UA Negative (Negative); Ketones Urine Trace (Negative); Leukocyte Esterase Urine 1+ (Negative); Nitrite Urine Negative (Negative); Protein Urine 1+ (Negative); RBC Urine Automated 0-2 /hpf (0-2); Specific Gravity Urine 1.016 (1.000-1.030); Urobilinogen Urine Negative (Negative); pH Urine 5.5 (4.5-7.5)
--- NOTE | 2024-01-12 16:24 | Electrocardiogram Report ---
Test Reason : Blood Pressure : / mmHG Vent. Rate : 102 BPM Atrial Rate : 102 BPM P-R Int : 152 ms QRS Dur : 134 ms QT Int : 360 ms P-R-T Axes : 012 -38 124 degrees QTc Int : 469 ms Sinus tachycardia with frequent Premature ventricular complexes Left axis deviation Left bundle branch block Minimal voltage criteria for LVH, may be normal variant Possible Lateral infarct , age undetermined Abnormal ECG When compared with ECG of 09-NOV-2023 08:20, Premature ventricular complexes are now Present Borderline criteria for Lateral infarct are now Present Confirmed by Deangelo Back ([id number]) on 01/12/2024 4:24:05 PM Referred By: REFERRED SELF Confirmed By:Deangelo Back
[2024-01-12] MEDS: MESALAMINE 1.2 GM TABDR PO SCH (20:24)
[2024-01-12] MEDS: DOXYCYCLINE HYCLATE 100 MG in DEXTROSE 5% MINI-B 100 ML IV SCH (20:25)
[2024-01-12 23:33] LABS: Hematocrit (blood only) 31.8 % (37.0-47.0); Hemoglobin 10.1 g/dl (12.0-16.0)
[2024-01-12 23:58] LABS: Adenovirus F 40/41 PCR Not Detected (NotDetected); Astrovirus PCR Not Detected (NotDetected); Campylobacter PCR Not Detected (NotDetected); Cryptosporidium PCR Not Detected (NotDetected); Cyclospora cayetanensis PCR Not Detected (NotDetected); Entamoeba histolytica PCR Not Detected (NotDetected); Enteroaggregative E.coli(EAEC) Not Detected (NotDetected); Enteropathogenic E.coli (EPEC) Not Detected (NotDetected); Enterotoxigenic E.coli (ETEC) Not Detected (NotDetected); Giardia lamblia PCR Not Detected (NotDetected); Norovirus GI/GII PCR Not Detected (NotDetected); Plesiomonas shigelloides PCR Not Detected (NotDetected); Rotavirus A PCR Not Detected (NotDetected); Salmonella PCR Not Detected (NotDetected); Sapovirus PCR Not Detected (NotDetected); Shiga-like Toxin E.coli (STEC) Not Detected (NotDetected); Shigella/Enteroinvasive E.coli Not Detected (NotDetected); Vibrio cholerae PCR Not Detected (NotDetected); Vibrio species PCR Not Detected (NotDetected); Yersinia enterocolitica PCR Not Detected (NotDetected)
[2024-01-13] MEDS: DOCUSATE SODIUM 100 MG CAP PO ONE (00:25)
[2024-01-13 01:51] LABS: Hematocrit (blood only) 32.2 % (37.0-47.0); Hemoglobin 10.2 g/dl (12.0-16.0); Mean Corpuscular Hemoglobin 29.9 pg (25.0-34.0); Mean Corpuscular Hgb Conc 31.7 g/dL (32.0-36.0); Mean Corpuscular Volume 94.4 fL (80.0-100.0); Platelet Count 124 K/uL (130-400); RDW Coefficient of Variation 13.2 % (11.5-14.5); RDW Standard Deviation 45.6 fL (36.4-46.3); Red Blood Count 3.41 M/uL (4.20-5.40); White Blood Count 4.23 K/ul (4.8-10.8)
[2024-01-13 02:05] LABS: BUN Creatinine Ratio 20.1 (10-20); Calcium 8.5 mg/dl (8.6-10.3); Creatinine Clr Calc Pharmacy 60.6 ml/min; Est GFR (African American) 49.4 ml/min; Est GFR (Non-African American) 42.7 ml/min; Magnesium 1.9 mg/dl (1.7-2.4); Potassium 4.2 mmol/L (3.5-5.1)
--- NOTE | 2024-01-13 04:34 | Communication Note ---
Date of Service: January 13, 2024 Patient seen beside. Episode of blood in the stool reported by nursing. Fecal occult positive. H and H was 10.1 after being 13.0 this AM. Patient denies any ab pain. Does have a h/o UC but no episodes of bloody BM's in the past. Never had episodes of this before. Constitutional: well-appearing, no acute distress GI: soft, nondistended, nontender, BS normoactive MSK: no gross deformities appreciated -PE benign. blood in the stool x1, otherwise asymptomatic, VSS -H and H in 2 hours remain stable. 10.1 --> 10.2 -Colace given. -Will continue to monitor vital signs overnight. repeat labs in the AM. -Possible hemorrhoidal bleed?
--- NOTE | 2024-01-13 10:02 | Hospitalist Progress Note ---
Date of Service January 13, 2024 Assessment & Plan (1) Lyme disease: Plan: Patient with history of tick bite approximately one month ago. Lyme testing is POSITIVE in the ER. Possible cause for patient's diffuse joint pain that occurred prior to arrival. -Confirmatory panel pending -Anaplasmosis pending -Doxycycline 100mg IV BID -Will transition to oral in the next couple of days prior to discharge (2) Parainfluenza virus infection: Plan: Patient reports cough ongoing for the last several days. Biofire panel POSITIVE for parainfluenza virus. -Droplet precautions (3) CHLOE (acute kidney injury): Plan: Elevation of BUN and Cr from baseline -Continue IVF - LR at 125mL/hr x 1L -Repeat chemistry in AM -Hold Entresto -Renal dosing where needed (4) Elevated troponin: Plan: Patient with history of CAD s/p NSTEMI with stenting. She is compliant with her medications. Denies chest pain. Mildly elevated troponin at 24.6. No ischemic EKG changes -Telemetry monitoring -Trend troponin to peak -Continue home Plavix, Atorvastatin, Metoprolol -Hold Entresto in setting of Cr elevation (5) Acute blood loss anemia: Plan: patient continues to have bright red blood per rectum endorses a remote hx of hemorrhoids and also UC Will hold her eliquis and plavix Transfuse if hb <7 Outpatient GI follow up on account of acute lyme treatment Plan Ulcerative colitis - patient reports stable symptoms -Continue Mesalamine -Continue Prednisone- 20mg daily until 01/14 then 15mg daily CAD - no chest pain -Continue Plavix, Atorvastatin, Metoprolol -Holding Entresto in setting of Cr elevation History of PE -Continue Apixaban RADHA - patient does not use CPAP F/E/N - LR at 125mL/hr x 1L, Mg repleted, repeat chemistry and Mg level in AM, Heart Healthy diet Ppx - On Apixaban Code - Full Dispo - Observation to medical with telemetry Admission and Anticipated Discharge Date Admission Date: January 12, 2024 Subjective patient seen and examined, still having some right leg pain and joint pains, no chest pains, but have been having bright red blood per rectum Review of Systems Review of Systems: All systems reviewed are negative, apart from the ones contained in the history. Physical Exam Physical Exam: The patient is awake, alert and oriented 3, well developed and well nourished, normocephalic and atraumatic, lying in bed and in no acute distress. HEENT--PERRL, EOMI, mucous membranes and oropharynx mildly dry Neck--supple. No JVD. No bruits. Thyroid normal, trachea midline, no adenopathy. Heart--normal S1 and S2. No murmurs, rubs or gallops. Lungs--clear bilaterally, no respiratory distress, no accessory muscle use. Abdomen--normal bowel sounds and soft. Extremities--no cyanosis or clubbing. No edema. Dermatologic--normal skin turgor, normal color, no abnormal lymph nodes, no rash. Neurologic--cranial nerves II through XII grossly intact. Rheumatologic--normal range of motion. Psychiatric--normal affect. Results & Data Results & Data Vital Signs (Past 12 Hours) Vital Signs Temp Pulse Pulse Resp BP BP Pulse Ox 01/13/24 08:27 98.2 F 80 18 129/64 95 01/13/24 07:47 62 01/13/24 03:12 97.5 F L 64 18 107/59 L 94 01/12/24 23:14 98.1 F 61 20 120/67 96 01/12/24 22:22 98.2 F 66 18 137/86 95 01/12/24 22:19 66 O2 Del Method 01/13/24 08:27 Room Air 01/13/24 07:47 01/13/24 03:12 Room Air 01/12/24 23:14 Room Air 01/12/24 22:22 Room Air 01/12/24 22:19 PG Care Time/CCT Total # of Minutes Spent Total Time Spent with Patient: Total time spent is greater than 50% in coordination of care (as documented) at patient's floor/unit and/or counseling patient: Coding Level of Care Code 38376 SUB INP/OBS CARE 2/35MIN Diagnoses Lyme disease A69.20 Parainfluenza virus infection B34.8 CHLOE (acute kidney injury) N17.9 Elevated troponin R79.89 Acute blood loss anemia D62 Time Spent (min) 35
[2024-01-13] MEDS: ACETAMINOPHEN 325 MG TAB PO PRN (15:05)
--- NOTE | 2024-01-13 15:50 | Gastrointestinal Consultation ---
Date of Consultation January 13, 2024 Assessment & Plan (1) Acute blood loss anemia: 63 year old female with history of CAD s/p NSTEMI s/p placement of coronary stents x 3, RADHA, PE on Eliquis and plavix admitted with Lyme and parainfluenza - GI was asked to evaluate for rectal bleeding. She has history of UC, last colonoscopy 10+ years ago but she now endorses loose stools with blood for about one week time. She needs colonoscopy for disease staging and evaluation of rectal bleeding. Stool culture negative C.diff negative Repeat fecal calprotectin Trend H&H Monitor and document stools Transfuse PRN per primary service Start IV iron Continue with prednisone taper for now Continue with oral mesalamine for now Will contact office to start authorization for biologic Consult cardiology - ideally we would hold plavix for 5 days and plan for colonoscopy early next week unless urgently indicated. She had an unprovoked PE about two months ago. Thank you for allowing us to participate in the care of this patient. Please call with any acute changes, questions or concerns. Please see addendum below with additional recommendation from my supervising physician. I spent a total of 60 minutes on the date of service in review of patient's record, and previously obtained information in person and appropriate medical visit, discussion and education of plan, with patient and/or caregiver, placing orders for tests/referral/procedures as medically necessary and documentation of pertinent clinical information in patient's medical records for their visit today. Supervising Physician Co-Signing Physician Notes I examined the patient and reviewed patient's chart , laboratory data and imaging studies. I agree with with assessment and plan of care as suggested by advanced practice provider. Long history of ulcerative colitis. Treated with infliximab in the distant past with good results. Infliximab had to be stopped due to insurance issues. The patient experienced exacerbation in September/October 2023. Colonoscopy could not be done due to recent pulmonary embolus in November 2023 and myocardial infarction in November 2022. Started on prednisone. Currently on 20 mg of prednisone/day. Currently experiencing rectal bleeding, diarrhea and anemia. Start authorization for biologic therapy. Taper and discontinue prednisone. Stop Plavix if OK with cardiology. Defer colonoscopy to next week when the patient is off Plavix for several days. She is also on droplet precautions right now which precludes performing colonoscopy in the GI lab. She will need to continue Eliquis for now. Hopefully rectal bleeding will markedly improve after Plavix is discontinued. Intravenous iron to correct patient's anemia. History of Present Illness Reason for Consultation: rectal bleeding Requesting Physician: Amor Attending Physician: Dong Chinchilla MD History of Present Illness 63 year old female with history of CAD s/p NSTEMI s/p placement of coronary stents x 3, RADHA, PE on Eliquis and plavix admitted with respiratory symptoms, chills and body aches. GI was asked to evaluate for rectal bleeding. She has history of UC, last colonoscopy 10+ years ago. Notes she had been doing well until recently. Seen by [facility] in Spring 2023, started on steroid taper and plan for colonoscopy. However, she tells me this was postponed due to recent unprovoked PE. She notes because of this, the decision was made to start PO mesalamine prior to endoscopic evaluation. Has been on this medication for less than a week and notes sine started she has had loose stools w/ rectal bleeding. Blood is BRB, mixed stool. Was small volume to start but now passing larger amounts of blood. No black stools. No abd pain. No nausea, vomiting. Tolerating PO intake but not hungry. + parainfluenza On IV ABX for Lyme AC Eliquis and Plavix HGB 13 --> 10.1 --> 10.2 BUN 27 Fecal occult positive Stool culture negative C.diff negative Last fecal calprotectin was in August 2023, elevated at 4,950. CT scan at that time shows pancolitis Allergies Allergy/AdvReac Type Severity Reaction Status Date / Time No Known Allergies Allergy Verified 11/22/23 16:36 Home Medications Medication Instructions Recorded Confirmed Type acetaminophen 500 mg tablet 1,000 mg PO DIRECTED PRN 12/03/22 01/12/24 History (Tylenol Extra Strength) PAIN/FEVER nitroglycerin 0.4 mg sublingual 0.4 mg sublingual UD PRN chest 12/06/22 01/12/24 Rx tablet (Nitrostat) pain #1 btl atorvastatin 40 mg tablet 40 mg PO QAM #90 tabs 06/03/23 01/12/24 Rx clopidogrel 75 mg tablet 75 mg PO QAM #90 tabs 06/03/23 01/12/24 Rx spironolactone 25 mg tablet 25 mg PO DAILY #90 tabs 09/14/23 11/19/23 Rx cholecalciferol (vitamin D3) 1,250 50,000 unit PO WEEKLY 8 weeks #8 10/26/23 01/12/24 Rx mcg (50,000 unit) capsule caps prednisone 10 mg tablet 5 mg PO QAM 11/08/23 11/22/23 History peg 3350-electrolytes 236 240 ml PO Q10M #4,000 mL 11/19/23 11/22/23 Rx gram-22.74 gram-6.74 gram-5.86 gram solution (GaviLyte-G) metoprolol succinate 25 mg 25 mg PO DAILY #30 tabs 11/22/23 01/12/24 Rx tablet,extended release 24 hr sacubitril 24 mg-valsartan 26 mg 1 tab PO BID #60 tabs 11/22/23 01/12/24 Rx tablet (Entresto) apixaban 5 mg (74 tabs) tablets in 5 mg PO BID #180 ea 12/13/23 01/12/24 Rx a dose pack (Eliquis) mesalamine 1.2 gram tablet,delayed 2.4 g (2 x 1.2 gram) PO BID #120 12/14/23 01/12/24 Rx release tabs prednisone 10 mg tablet 20 mg PO DAILY 01/12/24 01/12/24 History Patient History Medical History Near syncope last episode, 11/13/23 states felt like legs just gave out, no LOC but felt like she was going to "pass out" causing the fall, will see Dr Pimentel for evaluation on 11/22/[address] pcp Dr Hernandes 11/19/23- episodes started ~ 08/2023 History of recent fall 11/13/23 states felt like legs just gave out, no LOC but states felt like she was going to "pass out" causing fall, will see Dr Pimentel for evaluation on 11/22/[address] Hernandes 11/19/23 - episodes started ~ 08/2023 Surgical History S/P right oophorectomy S/P coronary artery stent placement (11/2022) JESSE to RCA, JESSE x 2 to mid LAD-- S/P complete hysterectomy d/t ovarian cyst S/P cholecystectomy S/P tonsillectomy Family History Grandmother (Maternal) Breast cancer Uncle Myocardial infarction Heart disease Father No problems noted. 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 Required: No Beliefs That Will Affect Care: None marital status: Current Living Situation: Family Current Living Situation Comment: , brother current occupational status: disabled How many Children do You have: 0 Other Information That Helps Us Care for You: No Feels Safe at Home: Yes Safety Concerns: Feels Safe At This Time Childhood Exposure to Second-Hand Smoke: Yes Diet: other Diet Comment: Has UC- low fiber, high protien diet caffeine: Yes during the past year weight has: remained stable Dental Care, Regularly: No Physical Activity Frequency: Daily 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 Physical Exam Constitutional: WD/WN, vitals as above Respiratory: normal respiratory effort, lungs clear to auscultation Cardiovascular: Rate/Rhythm: regular rate and regular rhythm Gastrointestinal (Abdomen): normal bowel sounds, soft, nontender, no hepatosplenomegaly Skin: no rashes, warm and dry Results & Data Vital Signs (Past 12 Hours) Vital Signs Temp Pulse Pulse Resp BP Pulse Ox O2 Del Method 01/13/24 15:32 74 01/13/24 15:18 36.7 C 90 18 133/86 97 Room Air 01/13/24 11:34 36.7 C 68 18 127/84 97 Room Air 01/13/24 08:27 36.8 C 80 18 129/64 95 Room Air 01/13/24 07:47 62 PG Care Time/CCT Total # of Minutes Spent Total Time Spent with Patient: Total time spent is greater than 50% in coordination of care (as documented) at patient's floor/unit and/or counseling patient: Coding Level of Care Code 25920 INT INP/OBS CARE 2/55MIN Diagnoses Acute blood loss anemia D62
[2024-01-13 18:46] LABS: HepB Surface Ag with confirm Negative (Negative)
[2024-01-13 18:55] LABS: Hepatitis B Surface Antibody Immune
[2024-01-14] MEDS: ONDANSETRON INJ 2 MG/ML 2 ML VIAL IV PRN (01:19)
[2024-01-14 07:21] LABS: Hematocrit (blood only) 35.3 % (37.0-47.0); Hemoglobin 11.4 g/dl (12.0-16.0); Mean Corpuscular Hemoglobin 29.8 pg (25.0-34.0); Mean Corpuscular Hgb Conc 32.3 g/dL (32.0-36.0); Mean Corpuscular Volume 92.2 fL (80.0-100.0); Platelet Count 133 K/uL (130-400); RDW Coefficient of Variation 13.2 % (11.5-14.5); Red Blood Count 3.83 M/uL (4.20-5.40); White Blood Count 4.04 K/ul (4.8-10.8)
[2024-01-14 07:46] LABS: BUN Creatinine Ratio 16.1 (10-20); Calcium 8.5 mg/dl (8.6-10.3); Creatinine Clr Calc Pharmacy 65.5 ml/min; Est GFR (African American) 54.3 ml/min; Est GFR (Non-African American) 46.8 ml/min; Potassium 3.7 mmol/L (3.5-5.1)
--- NOTE | 2024-01-14 09:31 | Gastroenterology Progress Note ---
Date of Service January 14, 2024 Assessment & Plan (1) Acute blood loss anemia: Plan: 63 year old female with history of CAD s/p NSTEMI s/p placement of coronary stents x 3, RADHA, PE on Eliquis and plavix admitted with Lyme and parainfluenza - GI was asked to evaluate for rectal bleeding. She has history of UC, last colonoscopy 10+ years ago but she now endorses loose stools with blood for about one week time. She needs colonoscopy for disease staging and evaluation of rectal bleeding. Stool culture negative C.diff negative Repeat fecal calprotectin pending Trend H&H Monitor and document stools Transfuse PRN per primary service Start IV iron Continue with prednisone taper for now Continue with oral mesalamine for now Will contact office to start authorization for biologic Consult cardiology - ideally we would hold plavix for 5 days and plan for colon oscopy early next week unless urgently indicated. She had an unprovoked PE about two months ago. Thank you for allowing us to participate in the care of this patient. Please call with any acute changes, questions or concerns. Please see addendum below with additional recommendation from my supervising physician. I spent a total of 55 minutes on the date of service in review of patient's record, and previously obtained information in person and appropriate medical visit, discussion and education of plan, with patient and/or caregiver, placing orders for tests/referral/procedures as medically necessary and documentation of pertinent clinical information in patient's medical records for their visit today. Admission and Anticipated Discharge Date Admission Date: January 13, 2024 Supervising Physician Co-Signing Physician Notes I examined the patient and reviewed patient's chart , laboratory data and imaging studies. I agree with with assessment and plan of care as suggested by advanced practice provider. History of ulcerative colitis with exacerbation. Chronic diarrhea, with small amount of blood in stool. Hemoglobin 11.4 today. Plavix and Eliquis stopped as per primary team. Continue to taper prednisone. Continue mesalamine. GI office working call authorization for vedolizumab, hopefully to begin next week. Colonoscopy next week. Will need to be off Plavix for 5 days and Eliquis for 2 days for colonoscopy. Subjective Pt was seen and evaluated Notes she has had 6 BMs since yesterday. 5 were mixed with blood. One was just brown stool. No abd pain. No nausea, vomiting. Review of Systems Review of Systems: All other findings negative except as noted in HPI. Physical Exam Constitutional: WD/WN, vitals as above Respiratory: normal respiratory effort Cardiovascular: Rate/Rhythm: regular rate Gastrointestinal (Abdomen): Inspection/Auscultation: abdomen normal to inspection and normal bowel sounds Skin: no rashes, warm and dry Results & Data Results & Data Vital Signs (Past 12 Hours) Vital Signs Temp Pulse Pulse Resp BP Pulse Ox O2 Del Method 01/14/24 07:56 37.3 C 111 H 18 110/70 92 Room Air 01/14/24 07:09 114 H 01/14/24 03:26 36.6 C 107 H 16 135/80 94 Room Air 01/13/24 23:20 36.5 C 98 H 18 134/69 96 Room Air 01/13/24 23:00 90 Laboratory Results 01/14/24 01/13/24 01/13/24 Range/Units 06:53 21:50 17:15 WBC 4.04 L (4.8-10.8) K/ul RBC 3.83 L (4.20-5.40) M/uL Hgb 11.4 L (12.0-16.0) g/dl Hct 35.3 L (37.0-47.0) % MCV 92.2 (80.0-100.0) fL MCH 29.8 (25.0-34.0) pg MCHC 32.3 (32.0-36.0) g/dL RDW Std Deviation 45.0 (36.4-46.3) fL RDW Coeff of Essie 13.2 (11.5-14.5) % Plt Count 133 (130-400) K/uL MPV 10.0 (9.4-12.4) fL Sodium 135 L (136-145) mmol/L Potassium 3.7 (3.5-5.1) mmol/L Chloride 106 (98-107) mmol/L Carbon Dioxide 22 (21-32) mmol/L Anion Gap 7 (3-11) BUN 20 (6-23) mg/dl Creatinine 1.24 H (0.6-1.2) mg/dl Est Cr Clr Drug Dosing 65.5 ml/min Est GFR ( Amer) 54.3 ml/min Est GFR (Non-Af Amer) 46.8 ml/min BUN/Creatinine Ratio 16.1 (10-20) Glucose 101 H (70-99(Fasting)) mg/dl Calcium 8.5 L (8.6-10.3) mg/dl Stool Calprotectin Pending Hep Bs Antigen Negative (Negative) Hep Bs Antibody Immune Hep Bs Antibody, Quant 14.50 (>or=10mIU/mL Immune) mIU/mL Blood Type O Positive Antibody Screen NEGATIVE PG Care Time/CCT Total # of Minutes Spent Total Time Spent with Patient: Total time spent is greater than 50% in coordination of care (as documented) at patient's floor/unit and/or counseling patient: Coding Level of Care Code 88658 SUB INP/OBS CARE 3/50MIN Diagnoses Acute blood loss anemia D62
--- NOTE | 2024-01-14 11:33 | Hospitalist Progress Note ---
Date of Service January 14, 2024 Assessment & Plan (1) Lyme disease: Plan: Patient with history of tick bite approximately one month ago. Lyme testing is POSITIVE in the ER. Possible cause for patient's diffuse joint pain that occurred prior to arrival. -Confirmatory panel pending -Anaplasmosis pending -Doxycycline 100mg IV BID -Will transition to oral in the next couple of days prior to discharge (2) GI bleed: Plan: patient continues to have bright red blood per rectum, Multiple times endorses a remote hx of hemorrhoids and also UC Last colonoscopy was 10 years ago Will hold her eliquis and plavix GI on consult, patient may need colonoscopy (3) Acute blood loss anemia: Plan: Hemoglobin stable Transfuse if hb <7 (4) Parainfluenza virus infection: Plan: Patient reports cough ongoing for the last several days. [employer] panel POSITIVE for parainfluenza virus. -Droplet precautions (5) CHLOE (acute kidney injury): Plan: Elevation of BUN and Cr from baseline -Continue IVF - LR at 125mL/hr x 1L -Repeat chemistry in AM -Hold Entresto -Renal dosing where needed (6) Elevated troponin: Plan: Patient with history of CAD s/p NSTEMI with stenting. She is compliant with her medications. Denies chest pain. Mildly elevated troponin at 24.6. No ischemic EKG changes -Telemetry monitoring -Trend troponin to peak -Continue home Plavix, Atorvastatin, Metoprolol -Hold Entresto in setting of Cr elevation (7) Ulcerative colitis: Plan: Ulcerative colitis - patient reports stable symptoms -Continue Mesalamine -Continue Prednisone- 20mg daily until 01/14 then 15mg daily (8) Coronary artery disease: Plan: CAD - no chest pain CAD status post multiple stents, Done last year -Hold Plavix in view of current GI bleed until evaluated by cardiology -Continue Atorvastatin, Metoprolol -Holding Entresto in setting of Cr elevation (9) Pulmonary emboli: Plan: Had PE In the past 3 months Continue to hold apixaban in view of bleeding Plan Continue to monitor in the hospital Awaiting cardiology clearance for possible colonoscopy Admission and Anticipated Discharge Date Admission Date: January 13, 2024 Subjective Patient seen and examined, still having multiple bloody bowel movements, Denies abdominal pain Review of Systems Review of Systems: All systems reviewed are negative, apart from the ones contained in the history. Physical Exam Physical Exam: The patient is awake, alert and oriented 3, well developed and well nourished, normocephalic and atraumatic, lying in bed and in no acute distress. HEENT--PERRL, EOMI, mucous membranes and oropharynx mildly dry Neck--supple. No JVD. No bruits. Thyroid normal, trachea midline, no adenopathy. Heart--normal S1 and S2. No murmurs, rubs or gallops. Lungs--clear bilaterally, no respiratory distress, no accessory muscle use. Abdomen--normal bowel sounds and soft. Extremities--no cyanosis or clubbing. No edema. Dermatologic--normal skin turgor, normal color, no abnormal lymph nodes, no rash. Neurologic--cranial nerves II through XII grossly intact. Rheumatologic--normal range of motion. Psychiatric--normal affect. Results & Data Results & Data Vital Signs (Past 12 Hours) Vital Signs Temp Pulse Pulse Pulse Resp BP Pulse Ox 01/14/24 09:45 92 H 01/14/24 07:56 99.1 F 111 H 18 110/70 92 01/14/24 07:09 114 H 01/14/24 03:26 97.9 F 107 H 16 135/80 94 O2 Del Method 01/14/24 09:45 01/14/24 07:56 Room Air 01/14/24 07:09 01/14/24 03:26 Room Air PG Care Time/CCT Total # of Minutes Spent Total Time Spent with Patient: Total time spent is greater than 50% in coordination of care (as documented) at patient's floor/unit and/or counseling patient: Coding Level of Care Code 68379 SUB INP/OBS CARE 2/35MIN Diagnoses Lyme disease A69.20 GI bleed K92.2 Acute blood loss anemia D62 Parainfluenza virus infection B34.8 CHLOE (acute kidney injury) N17.9 Elevated troponin R79.89 Ulcerative colitis K51.90 Coronary artery disease I25.10 Pulmonary emboli I26.99 Time Spent (min) 35
--- NOTE | 2024-01-14 15:38 | Cardiology Consultation ---
Date of Consultation January 14, 2024 Assessment & Plan (1) Preop cardiovascular exam: -the patient has coronary artery disease is quiescent on current medical regimen. -she demonstrates excellent functional status without cardiac symptoms. -she is an acceptable risk endoscopy without further testing. -okay to hold Plavix for 5 days prior to the procedure. (2) Coronary artery disease: -NSTEMI, November 2022 -mid RCA JESSE placed at that time. -mid LAD JESSE x2 placed at that time. -quiescent on medical management. (3) Ischemic cardiomyopathy: -LVEF of 35-40% on echocardiogram, October 2023. -continue metoprolol succinate. -resume Entresto when able. -resume spironolactone when able. (4) Pulmonary emboli: -unprovoked event back in October. -on long-term anticoagulation indefinitely. History of Present Illness Attending Physician: Dong Chinchilla MD History of Present Illness Mrs. Vargas is a 63-year-old female admitted on January 11 with acute Lyme disease, parainfluenza infection, and bloody stools. The patient is scheduled for a colonoscopy next week. This consultation was ordered to help direct her cardiac care. Of note, patient typically follows with Dr. Pimentel in the outpatient setting. The patient does carry history of coronary artery disease. She suffered a non ST elevation DE back in November of 2022. She had a single JESSE placed in the mid RCA in overlapping JESSE x2 in the mid LAD at that time. She did demonstrate an ischemic cardiomyopathy with ejection fraction of 35-40%. This was confirmed on an echocardiogram performed in October. The patient has done well from a cardiac perspective since her event last year. She is active on a daily basis caring for her home. She also walks is a 2-year-old child for daycare. She has never experienced exertional chest pain or limiting dyspnea. She further denies syncope, presyncope, PND orthopnea, palpitations, lower extremity edema, and claudication. As above, she is scheduled for colonoscopy next week. The GI consult is would like Plavix held for a total of 5 days. Past medical and surgical history 1. Coronary artery disease-see above 2. Mid RCA JESSE-November 2022 3. Mid LAD JESSE- x2 November 2022 4. 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 Ischemic sbbyyqcbyygfed-27-55%, October 2023 6. Chronic systolic CHF 7. LBBB 8. Hypercholesterolemia 9. Frequent PVCs 10. Unprovoked pulmonary embolism-October 2023 11. Ulcerative colitis 12. Obstructive sleep apnea 13. Hysterectomy 14. Right oophorectomy 15. Cholecystectomy 16. 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 Allergies Allergy/AdvReac Type Severity Reaction Status Date / Time No Known Allergies Allergy Verified 11/22/23 16:36 Home Medications Medication Instructions Recorded Confirmed Type acetaminophen 500 mg tablet 1,000 mg PO DIRECTED PRN 12/03/22 01/12/24 History (Tylenol Extra Strength) PAIN/FEVER nitroglycerin 0.4 mg sublingual 0.4 mg sublingual UD PRN chest 12/06/22 01/12/24 Rx tablet (Nitrostat) pain #1 btl atorvastatin 40 mg tablet 40 mg PO QAM #90 tabs 06/03/23 01/12/24 Rx clopidogrel 75 mg tablet 75 mg PO QAM #90 tabs 06/03/23 01/12/24 Rx spironolactone 25 mg tablet 25 mg PO DAILY #90 tabs 09/14/23 11/19/23 Rx cholecalciferol (vitamin D3) 1,250 50,000 unit PO WEEKLY 8 weeks #8 10/26/23 01/12/24 Rx mcg (50,000 unit) capsule caps prednisone 10 mg tablet 5 mg PO QAM 11/08/23 11/22/23 History peg 3350-electrolytes 236 240 ml PO Q10M #4,000 mL 11/19/23 11/22/23 Rx gram-22.74 gram-6.74 gram-5.86 gram solution (GaviLyte-G) metoprolol succinate 25 mg 25 mg PO DAILY #30 tabs 11/22/23 01/12/24 Rx tablet,extended release 24 hr sacubitril 24 mg-valsartan 26 mg 1 tab PO BID #60 tabs 11/22/23 01/12/24 Rx tablet (Entresto) apixaban 5 mg (74 tabs) tablets in 5 mg PO BID #180 ea 12/13/23 01/12/24 Rx a dose pack (Eliquis) mesalamine 1.2 gram tablet,delayed 2.4 g (2 x 1.2 gram) PO BID #120 12/14/23 01/12/24 Rx release tabs prednisone 10 mg tablet 20 mg PO DAILY 01/12/24 01/12/24 History Patient History Medical History Near syncope last episode, 11/13/23 states felt like legs just gave out, no LOC but felt like she was going to "pass out" causing the fall, will see Dr Pimentel for evaluation on 11/22/[address] pcp Dr Hernandes 11/19/23- episodes started ~ 08/2023 History of recent fall 11/13/23 states felt like legs just gave out, no LOC but states felt like she was going to "pass out" causing fall, will see Dr Pimentel for evaluation on 11/22/[address] Hernandes 11/19/23 - episodes started ~ 08/2023 Surgical History S/P right oophorectomy S/P coronary artery stent placement (11/2022) JESSE to RCA, JESSE x 2 to mid LAD-- S/P complete hysterectomy d/t ovarian cyst S/P cholecystectomy S/P tonsillectomy Family History Grandmother (Maternal) Breast cancer Uncle Myocardial infarction Heart disease Father No problems noted. Mother Osteoarthritis Asthma Other Arthritis Cancer Hypertension Obstructive sleep apnea Urticaria Denies family history of Ovarian cancer Prostate cancer Colorectal cancer Social History Smoking Status: Former smoker Tobacco Type: Cigarettes Age Started Using Tobacco: 17; Age Quit Using Tobacco: 62; packs per day: 1; Second Hand Exposure: No; Do You Dip or Chew Tobacco: No; Hx Alcohol Use: No Hx Substance Use: No Preferred Language: Greek Communication Ability: Effective Visual Impairment: No Limitations Hearing Ability: Normal Workday Director Required: No Beliefs That Will Affect Care: None marital status: Current Living Situation: Family Current Living Situation Comment: , brother current occupational status: disabled How many Children do You have: 0 Other Information That Helps Us Care for You: No Feels Safe at Home: Yes Safety Concerns: Feels Safe At This Time Childhood Exposure to Second-Hand Smoke: Yes Diet: other Diet Comment: Has UC- low fiber, high protien diet caffeine: Yes during the past year weight has: remained stable Dental Care, Regularly: No Physical Activity Frequency: Daily 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 HEENT exam is negative. Neck is supple with full carotid upstrokes. No carotid bruits. Jugular venous pressure is flat at 90. No thyromegaly. Cardiovascular exam reveals a regular rhythm with distant heart sounds. No obvious murmurs. No S3 or S4. Lungs are clear without rales, rhonchi or wheezes. Abdomen is obese without bruits. Extremities reveal intact radial artery pulses bilaterally. Trace pretibial edema is noted. Results & Data Vital Signs (Past 12 Hours) Vital Signs Temp Pulse Pulse Pulse Resp BP BP 01/14/24 15:15 88 01/14/24 11:47 37.5 C 83 18 117/65 01/14/24 09:45 92 H 01/14/24 09:30 01/14/24 07:56 37.3 C 111 H 18 110/70 01/14/24 07:09 114 H Pulse Ox O2 Del Method 01/14/24 15:15 01/14/24 11:47 94 Room Air 01/14/24 09:45 01/14/24 09:30 Room Air 01/14/24 07:56 92 Room Air 01/14/24 07:09 Laboratory Results Initial high sensitivity troponin was 24.6 with a follow-up value of 24. Diagnostic Findings EKG notes sinus tachycardia with a left axis deviation, left bundle-branch block, infrequent PVCs. PG Care Time/CCT Total # of Minutes Spent Total Time Spent with Patient: Total time spent is greater than 50% in coordination of care (as documented) at patient's floor/unit and/or counseling patient: Coding Level of Care Code 06927 IN/OBS CONSULT LVL 4,60M Diagnoses Preop cardiovascular exam Z01.810 Coronary artery disease I25.10 Ischemic cardiomyopathy I25.5 Pulmonary emboli I26.99
[2024-01-15 06:55] LABS: Hematocrit (blood only) 33.4 % (37.0-47.0); Hemoglobin 10.7 g/dl (12.0-16.0); Mean Corpuscular Hemoglobin 29.9 pg (25.0-34.0); Mean Corpuscular Volume 93.3 fL (80.0-100.0); Mean Platelet Volume 10.5 fL (9.4-12.4); Platelet Count 119 K/uL (130-400); RDW Coefficient of Variation 12.9 % (11.5-14.5); RDW Standard Deviation 44.7 fL (36.4-46.3); Red Blood Count 3.58 M/uL (4.20-5.40); White Blood Count 3.89 K/ul (4.8-10.8)
[2024-01-15] MEDS: predniSONE 5 MG TAB PO SCH (08:31)
--- NOTE | 2024-01-15 09:47 | Hospitalist Progress Note ---
Date of Service January 15, 2024 Assessment & Plan (1) Lyme disease: Plan: Patient with history of tick bite approximately one month ago. Lyme testing is POSITIVE in the ER. Possible cause for patient's diffuse joint pain that occurred prior to arrival. -Confirmatory panel pending -Anaplasmosis pending -Doxycycline 100mg IV BID -Will transition to oral prior to discharge (2) GI bleed: Plan: patient continues to have bright red blood per rectum, Multiple times endorses a remote hx of hemorrhoids and also UC Last colonoscopy was 10 years ago Will hold her eliquis and plavix, Cardiology clearance already obtained GI on consult, Plan is for colonoscopy on Wednesday (3) Acute blood loss anemia: Plan: Hemoglobin stable Transfuse if hb <7 (4) Parainfluenza virus infection: Plan: Patient reports cough ongoing for the last several days. Biofire panel POSITIVE for parainfluenza virus. -Droplet precautions (5) CHLOE (acute kidney injury): Plan: Elevation of BUN and Cr from baseline -Continue IVF - LR at 125mL/hr x 1L -Repeat chemistry in AM -Hold Entresto -Renal dosing where needed (6) Elevated troponin: Plan: Patient with history of CAD s/p NSTEMI with stenting. She is compliant with her medications. Denies chest pain. Mildly elevated troponin at 24.6. No ischemic EKG changes -Telemetry monitoring -Trend troponin to peak -Continue home Plavix, Atorvastatin, Metoprolol -Hold Entresto in setting of Cr elevation (7) Ulcerative colitis: Plan: Ulcerative colitis - patient reports stable symptoms -Continue Mesalamine -Continue Prednisone- 20mg daily until 01/14 then 15mg daily (8) Coronary artery disease: Plan: CAD - no chest pain CAD status post multiple stents, Done last year -Hold Plavix in view of current GI bleed -Continue Atorvastatin, Metoprolol -Holding Entresto in setting of Cr elevation (9) Pulmonary emboli: Plan: Had PE In the past 3 months Continue to hold apixaban in view of bleeding Plan Continue to monitor in the hospital For colonoscopy on Wednesday Admission and Anticipated Discharge Date Admission Date: January 13, 2024 Subjective Patient seen and examined, still having bloody bowel movements, But better than yesterday, endorses poor appetite Review of Systems Review of Systems: All systems reviewed are negative, apart from the ones contained in the history. Physical Exam Physical Exam: The patient is awake, alert and oriented 3, well developed and well nourished, normocephalic and atraumatic, lying in bed and in no acute distress. HEENT--PERRL, EOMI, mucous membranes and oropharynx mildly dry Neck--supple. No JVD. No bruits. Thyroid normal, trachea midline, no adenopathy. Heart--normal S1 and S2. No murmurs, rubs or gallops. Lungs--clear bilaterally, no respiratory distress, no accessory muscle use. Abdomen--normal bowel sounds and soft. Extremities--no cyanosis or clubbing. No edema. Dermatologic--normal skin turgor, normal color, no abnormal lymph nodes, no rash. Neurologic--cranial nerves II through XII grossly intact. Rheumatologic--normal range of motion. Psychiatric--normal affect. Results & Data Results & Data Vital Signs (Past 12 Hours) Vital Signs Temp Pulse Pulse Resp BP Pulse Ox O2 Del Method 01/15/24 07:16 98.1 F 76 20 130/80 96 Room Air 01/15/24 03:29 97.7 F 68 16 130/74 94 Room Air 01/14/24 23:33 97.5 F L 62 17 144/71 H 96 Room Air 01/14/24 23:00 59 L PG Care Time/CCT Total # of Minutes Spent Total Time Spent with Patient: Total time spent is greater than 50% in coordination of care (as documented) at patient's floor/unit and/or counseling patient: Coding Level of Care Code 35102 SUB INP/OBS CARE 2/35MIN Diagnoses Lyme disease A69.20 GI bleed K92.2 Acute blood loss anemia D62 Parainfluenza virus infection B34.8 CHLOE (acute kidney injury) N17.9 Elevated troponin R79.89 Ulcerative colitis K51.90 Coronary artery disease I25.10 Pulmonary emboli I26.99 Time Spent (min) 35
[2024-01-16 07:39] LABS: Hematocrit (blood only) 31.6 % (37.0-47.0); Hemoglobin 10.3 g/dl (12.0-16.0); Mean Corpuscular Hemoglobin 29.8 pg (25.0-34.0); Mean Corpuscular Hgb Conc 32.6 g/dL (32.0-36.0); Mean Corpuscular Volume 91.3 fL (80.0-100.0); Mean Platelet Volume 10.4 fL (9.4-12.4); Platelet Count 126 K/uL (130-400); RDW Coefficient of Variation 12.7 % (11.5-14.5); RDW Standard Deviation 42.5 fL (36.4-46.3); Red Blood Count 3.46 M/uL (4.20-5.40); White Blood Count 4.24 K/ul (4.8-10.8)
[2024-01-16 07:55] LABS: Calcium 8.6 mg/dl (8.6-10.3); Creatinine Clr Calc Pharmacy 77.9 ml/min; Est GFR (African American) 65.6 ml/min; Est GFR (Non-African American) 56.6 ml/min; Potassium 3.8 mmol/L (3.5-5.1)
--- NOTE | 2024-01-16 10:31 | Hospitalist Progress Note ---
Date of Service January 16, 2024 Assessment & Plan (1) Lyme disease: Plan: Patient with history of tick bite approximately one month ago. Lyme testing is POSITIVE in the ER. Possible cause for patient's diffuse joint pain that occurred prior to arrival. -Confirmatory panel pending -Still complains of some mild joint pains -Anaplasmosis pending -Doxycycline 100mg IV BID -Will transition to oral prior to discharge (2) GI bleed: Plan: patient continues to have bright red blood per rectum, Multiple times endorses a remote hx of hemorrhoids and also UC Last colonoscopy was 10 years ago Will hold her eliquis and plavix, Cardiology clearance already obtained GI on consult, Plan is for colonoscopy on Wednesday (3) Acute blood loss anemia: Plan: Hemoglobin stable, 10.3 today Transfuse if hb <7 (4) Parainfluenza virus infection: Plan: Patient reports cough ongoing for the last several days. Biofire panel POSITIVE for parainfluenza virus. -Droplet precautions (5) CHLOE (acute kidney injury): Plan: Elevation of BUN and Cr from baseline -Reduce the IV fluid rate to 100 cc/h -Repeat chemistry in AM -Hold Entresto -Renal dosing where needed (6) Elevated troponin: Plan: Patient with history of CAD s/p NSTEMI with stenting. She is compliant with her medications. Denies chest pain. Mildly elevated troponin at 24.6. No ischemic EKG changes -Telemetry monitoring -Trend troponin to peak -Continue home Plavix, Atorvastatin, Metoprolol -Hold Entresto in setting of Cr elevation (7) Ulcerative colitis: Plan: Ulcerative colitis - patient reports stable symptoms -Continue Mesalamine -Continue Prednisone- 20mg daily until 01/14 then 15mg daily (8) Coronary artery disease: Plan: CAD - no chest pain CAD status post multiple stents, Done last year -Hold Plavix in view of current GI bleed -Continue Atorvastatin, Metoprolol -Holding Entresto in setting of Cr elevation (9) Pulmonary emboli: Plan: Had PE In the past 3 months Continue to hold apixaban in view of bleeding Plan Continue to monitor in the hospital For colonoscopy on Wednesday Admission and Anticipated Discharge Date Admission Date: January 13, 2024 Subjective Patient seen and examined, still having bloody bowel movements, Endorses some mild joint pains Review of Systems Review of Systems: All systems reviewed are negative, apart from the ones contained in the history. Physical Exam Physical Exam: The patient is awake, alert and oriented 3, well developed and well nourished, normocephalic and atraumatic, lying in bed and in no acute distress. HEENT--PERRL, EOMI, mucous membranes and oropharynx mildly dry Neck--supple. No JVD. No bruits. Thyroid normal, trachea midline, no adenopathy. Heart--normal S1 and S2. No murmurs, rubs or gallops. Lungs--clear bilaterally, no respiratory distress, no accessory muscle use. Abdomen--normal bowel sounds and soft. Extremities--no cyanosis or clubbing. No edema. Dermatologic--normal skin turgor, normal color, no abnormal lymph nodes, no rash. Neurologic--cranial nerves II through XII grossly intact. Rheumatologic--normal range of motion. Psychiatric--normal affect. Results & Data Results & Data Vital Signs (Past 12 Hours) Vital Signs Temp Pulse Pulse Resp BP BP Pulse Ox 01/16/24 07:56 74 01/16/24 07:51 98.1 F 85 18 144/95 H 94 01/16/24 04:02 97.9 F 83 18 140/84 95 01/16/24 00:00 73 01/15/24 23:31 97.9 F 79 18 138/77 95 O2 Del Method 01/16/24 07:56 01/16/24 07:51 Room Air 01/16/24 04:02 Room Air 01/16/24 00:00 01/15/24 23:31 Room Air PG Care Time/CCT Total # of Minutes Spent Total Time Spent with Patient: Total time spent is greater than 50% in coordination of care (as documented) at patient's floor/unit and/or counseling patient: Coding Level of Care Code 34270 SUB INP/OBS CARE 2/35MIN Diagnoses Lyme disease A69.20 GI bleed K92.2 Acute blood loss anemia D62 Parainfluenza virus infection B34.8 CHLOE (acute kidney injury) N17.9 Elevated troponin R79.89 Ulcerative colitis K51.90 Coronary artery disease I25.10 Pulmonary emboli I26.99 Time Spent (min) 35
[2024-01-17 10:01] LABS: Hematocrit (blood only) 33.8 % (37.0-47.0); Hemoglobin 11.1 g/dl (12.0-16.0); Mean Corpuscular Hgb Conc 32.8 g/dL (32.0-36.0); Mean Corpuscular Volume 91.4 fL (80.0-100.0); Mean Platelet Volume 10.3 fL (9.4-12.4); Platelet Count 136 K/uL (130-400); RDW Coefficient of Variation 12.7 % (11.5-14.5); White Blood Count 5.67 K/ul (4.8-10.8)
--- NOTE | 2024-01-17 11:21 | Gastroenterology Progress Note ---
Date of Service January 17, 2024 Assessment & Plan (1) Acute blood loss anemia: Plan: 63 year old female with history of CAD s/p NSTEMI s/p placement of coronary stents x 3, RADHA, PE on Eliquis and plavix admitted with Lyme and parainfluenza - GI was asked to evaluate for rectal bleeding. She has history of UC, last colonoscopy 10+ years ago but she now endorses loose stools with blood for about one week time. She needs colonoscopy for disease staging and evaluation of rectal bleeding. Stool culture negative C.diff negative Repeat fecal calprotectin pending Trend H&H Monitor and document stools Transfuse PRN per primary service Start IV iron Continue with prednisone taper for now Continue with oral mesalamine for now Will contact office to start authorization for biologic Continue to hold AC Clear liquids 01/17 for anticipated colonoscopy 01/18 Thank you for allowing us to participate in the care of this patient. Please call with any acute changes, questions or concerns. Please see addendum below with additional recommendation from my supervising physician. I spent a total of 55 minutes on the date of service in review of patient's record, and previously obtained information in person and appropriate medical visit, discussion and education of plan, with patient and/or caregiver, placing orders for tests/referral/procedures as medically necessary and documentation of pertinent clinical information in patient's medical records for their visit today. Admission and Anticipated Discharge Date Admission Date: January 13, 2024 Supervising Physician Co-Signing Physician Notes I examined the patient and reviewed patient's chart , laboratory data and imaging studies. I agree with with assessment and plan of care as suggested by advanced practice provider. For colonoscopy on 01/18. Restart anticoagulation. The patient's is at high risk for recurrent thromboembolism due to active ulcerative colitis. Expected vedolizumab to be approved after colonoscopy. Subjective Ongoing loose stools, intermittent episodes of BRB. Review of Systems Review of Systems: All other findings negative except as noted in HPI. Physical Exam Constitutional: WD/WN, vitals as above Respiratory: normal respiratory effort, lungs clear to auscultation Gastrointestinal (Abdomen): Inspection/Auscultation: abdomen normal to inspection Percussion/Palpation: abdomen soft; abdomen nontender Skin: no rashes, warm and dry Results & Data Results & Data Vital Signs (Past 12 Hours) Vital Signs Temp Pulse Pulse Resp BP BP Pulse Ox 01/17/24 07:56 36.5 C 82 18 141/86 H 94 01/17/24 07:08 73 01/17/24 04:29 36.7 C 82 20 135/85 96 01/16/24 23:38 36.8 C 71 20 144/81 H 96 O2 Del Method 01/17/24 07:56 Room Air 01/17/24 07:08 01/17/24 04:29 Room Air 01/16/24 23:38 Room Air Laboratory Results 01/17/24 Range/Units 09:36 WBC 5.67 (4.8-10.8) K/ul RBC 3.70 L (4.20-5.40) M/uL Hgb 11.1 L (12.0-16.0) g/dl Hct 33.8 L (37.0-47.0) % MCV 91.4 (80.0-100.0) fL MCH 30.0 (25.0-34.0) pg MCHC 32.8 (32.0-36.0) g/dL RDW Std Deviation 42.0 (36.4-46.3) fL RDW Coeff of Essie 12.7 (11.5-14.5) % Plt Count 136 (130-400) K/uL MPV 10.3 (9.4-12.4) fL PG Care Time/CCT Total # of Minutes Spent Total Time Spent with Patient: Total time spent is greater than 50% in coordination of care (as documented) at patient's floor/unit and/or counseling patient: Coding Level of Care Code 78261 SUB INP/OBS CARE 3/50MIN Diagnoses Acute blood loss anemia D62
--- NOTE | 2024-01-17 11:50 | Hospitalist Progress Note ---
Date of Service January 17, 2024 Assessment & Plan (1) Lyme disease: Plan: Patient with history of tick bite approximately one month ago. Lyme testing is POSITIVE in the ER. Possible cause for patient's diffuse joint pain that occurred prior to arrival. -Confirmatory panel pending -Still complains of some mild joint pains -Anaplasmosis pending -Doxycycline 100mg IV BID -Will transition to oral prior to discharge (2) GI bleed: Plan: patient continues to have bright red blood per rectum, Multiple times endorses a remote hx of hemorrhoids and also UC Last colonoscopy was 10 years ago Will hold her eliquis and plavix, Cardiology clearance already obtained GI on consult, Plan is for colonoscopy on Wednesday N.p.o. from midnight on Wednesday (3) Acute blood loss anemia: Plan: Hemoglobin stable, 11 today Transfuse if hb <7 (4) Parainfluenza virus infection: Plan: Patient reports cough ongoing for the last several days. Biofire panel POSITIVE for parainfluenza virus. -Droplet precautions (5) CHLOE (acute kidney injury): Plan: Elevation of BUN and Cr from baseline -Reduce the IV fluid rate to 100 cc/h -Repeat chemistry in AM -Hold Entresto -Renal dosing where needed (6) Elevated troponin: Plan: Patient with history of CAD s/p NSTEMI with stenting. She is compliant with her medications. Denies chest pain. Mildly elevated troponin at 24.6. No ischemic EKG changes -Telemetry monitoring -Trend troponin to peak -Continue home Plavix, Atorvastatin, Metoprolol -Hold Entresto in setting of Cr elevation (7) Ulcerative colitis: Plan: Ulcerative colitis - patient reports stable symptoms -Continue Mesalamine -Continue Prednisone- 20mg daily until 01/14 then 15mg daily (8) Coronary artery disease: Plan: CAD - no chest pain CAD status post multiple stents, Done last year -Hold Plavix in view of current GI bleed -Continue Atorvastatin, Metoprolol -Holding Entresto in setting of Cr elevation (9) Pulmonary emboli: Plan: Had PE In the past 3 months Continue to hold apixaban in view of bleeding Plan Continue to monitor in the hospital For colonoscopy on Wednesday Admission and Anticipated Discharge Date Admission Date: January 13, 2024 Subjective Patient seen and examined, still having bloody liquid bowel movements Review of Systems Review of Systems: All systems reviewed are negative, apart from the ones contained in the history. Physical Exam Physical Exam: The patient is awake, alert and oriented 3, well developed and well nourished, normocephalic and atraumatic, lying in bed and in no acute distress. HEENT--PERRL, EOMI, mucous membranes and oropharynx mildly dry Neck--supple. No JVD. No bruits. Thyroid normal, trachea midline, no adenopathy. Heart--normal S1 and S2. No murmurs, rubs or gallops. Lungs--clear bilaterally, no respiratory distress, no accessory muscle use. Abdomen--normal bowel sounds and soft. Extremities--no cyanosis or clubbing. No edema. Dermatologic--normal skin turgor, normal color, no abnormal lymph nodes, no rash. Neurologic--cranial nerves II through XII grossly intact. Rheumatologic--normal range of motion. Psychiatric--normal affect. Results & Data Results & Data Vital Signs (Past 12 Hours) Vital Signs Temp Pulse Pulse Resp BP BP Pulse Ox 01/17/24 07:56 97.7 F 82 18 141/86 H 94 01/17/24 07:08 73 01/17/24 04:29 98.1 F 82 20 135/85 96 O2 Del Method 01/17/24 07:56 Room Air 01/17/24 07:08 01/17/24 04:29 Room Air PG Care Time/CCT Total # of Minutes Spent Total Time Spent with Patient: Total time spent is greater than 50% in coordination of care (as documented) at patient's floor/unit and/or counseling patient: Coding Level of Care Code 05033 SUB INP/OBS CARE 2/35MIN Diagnoses Lyme disease A69.20 GI bleed K92.2 Acute blood loss anemia D62 Parainfluenza virus infection B34.8 CHLOE (acute kidney injury) N17.9 Elevated troponin R79.89 Ulcerative colitis K51.90 Coronary artery disease I25.10 Pulmonary emboli I26.99 Time Spent (min) 35
[2024-01-18] MEDS: METOPROLOL TARTRATE 1 MG/ML VIAL IV ONE ×3 (06:10→06:32)
[2024-01-18 06:47] LABS: Hematocrit (blood only) 36.2 % (37.0-47.0); Hemoglobin 11.9 g/dl (12.0-16.0); Mean Corpuscular Hemoglobin 29.7 pg (25.0-34.0); Mean Corpuscular Hgb Conc 32.9 g/dL (32.0-36.0); Mean Corpuscular Volume 90.3 fL (80.0-100.0); Mean Platelet Volume 10.2 fL (9.4-12.4); Platelet Count 173 K/uL (130-400); RDW Coefficient of Variation 12.6 % (11.5-14.5); Red Blood Count 4.01 M/uL (4.20-5.40); White Blood Count 6.58 K/ul (4.8-10.8)
--- NOTE | 2024-01-18 06:52 | Communication Note ---
Date of Service: January 18, 2024 Called bedside to address patient due to being in A-fib with RVR/SVT. Patient is asymptomatic. Denies any chest pain. EKG obtained. Given Lopressor 5 mg x 3 and 500 cc bolus of fluids. Heart rate came down in the 80s and 90s and blood pressure remained stable in the 120s systolically. Will transfer to PCU/telemetry. Will hold off on dig at this time. Added on mag to morning labs. Follow-up on labs by day team
[2024-01-18 07:01] LABS: BUN Creatinine Ratio 14.9 (10-20); Calcium 8.8 mg/dl (8.6-10.3); Creatinine Clr Calc Pharmacy 81.6 ml/min; Est GFR (African American) 69.6 ml/min; Potassium 3.4 mmol/L (3.5-5.1)
[2024-01-18] MEDS: METOPROLOL TARTRATE 1 MG/ML VIAL IV STA ×4 (07:22→10:52)
[2024-01-18] MEDS: POTASSIUM CHLORIDE CRTAB 20 MEQ TABCR PO STA (07:37)
[2024-01-18 07:43] LABS: Magnesium 1.6 mg/dl (1.7-2.4)
--- NOTE | 2024-01-18 09:40 | Communication Note ---
Date of Service: January 18, 2024 Educated patient on importance of clear liquid diet today, completion of bowel prep and maintaining NPO status after midnight for colonoscopy examination on 01/19/24. We appreciate assistance in the management of any serological abnormality and corrections to include: hemoglobin >7, INR <2, platelets >50,000, potassium levels >3.5 but <5.3, and sodium levels within 5 points of the reference range prior to endoscopic evaluation. Thank you for allowing us to participate in the care of this patient. Please call with any acute changes, questions or concerns. Please see addendum below with additional recommendation from my supervising physician.
--- NOTE | 2024-01-18 10:38 | Electrocardiogram Report ---
Test Reason : Blood Pressure : / mmHG Vent. Rate : 165 BPM Atrial Rate : 163 BPM P-R Int : 000 ms QRS Dur : 136 ms QT Int : 266 ms P-R-T Axes : 000 -60 129 degrees QTc Int : 440 ms Atrial fibrillation with rapid ventricular response Left axis deviation Left bundle branch block Abnormal ECG When compared with ECG of 12-JAN-2024 03:26, Atrial fibrillation has replaced Sinus rhythm Vent. rate has increased BY 63 BPM Confirmed by Ras Javed ([id number]) on 01/18/2024 10:38:20 AM Referred By: REFERRED SELF Confirmed By:Ras Javed
--- NOTE | 2024-01-18 10:44 | Electrocardiogram Report ---
Test Reason : Blood Pressure : / mmHG Vent. Rate : 122 BPM Atrial Rate : 163 BPM P-R Int : 000 ms QRS Dur : 138 ms QT Int : 370 ms P-R-T Axes : 000 -59 118 degrees QTc Int : 527 ms Atrial fibrillation with rapid ventricular response Left axis deviation Left bundle branch block Abnormal ECG When compared with ECG of 18-JAN-2024 06:03, HR has decreased by 43 bpm Confirmed by Ras Javed ([id number]) on 01/18/2024 10:43:40 AM Referred By: REFERRED SELF Confirmed By:Ras Javed
[2024-01-18] MEDS: MAGNESIUM SULFATE / D5W 1 GM/100 ML BAG IV SCH (10:56)
[2024-01-18] MEDS ORDERED: 0.2 MICRON FILTER SET 1 EACH IV ONE ×2 (12:50→12:51)
[2024-01-18] MEDS: SODIUM CHLORIDE 0.9% 500 ML IV ONE (12:55)
--- NOTE | 2024-01-18 12:56 | Hospitalist Progress Note ---
Date of Service January 18, 2024 Assessment & Plan (1) Afib: Plan: Patient went into A-fib with RVR early this morning Received Lopressor and metoprolol Heart rate still in the 140s Will start amiodarone infusion following a bolus Cardiology on consult (2) Lyme disease: Plan: Patient with history of tick bite approximately one month ago. Lyme testing is POSITIVE in the ER. Possible cause for patient's diffuse joint pain that occurred prior to arrival. -Confirmatory panel pending -Still complains of some mild joint pains -Anaplasmosis pending -Doxycycline 100mg IV BID -Will transition to oral prior to discharge (3) GI bleed: Plan: patient continues to have bright red blood per rectum, Multiple times endorses a remote hx of hemorrhoids and also UC Last colonoscopy was 10 years ago Will hold her eliquis and plavix, Cardiology clearance already obtained GI on consult, Plan is for colonoscopy on Wednesday N.p.o. from midnight on Wednesday (4) Acute blood loss anemia: Plan: Hemoglobin stable, 11 today Transfuse if hb <7 (5) Parainfluenza virus infection: Plan: Patient reports cough ongoing for the last several days. Biofire panel POSITIVE for parainfluenza virus. -Droplet precautions (6) CHLOE (acute kidney injury): Plan: Elevation of BUN and Cr from baseline -Reduce the IV fluid rate to 100 cc/h -Repeat chemistry in AM -Hold Entresto -Renal dosing where needed (7) Elevated troponin: Plan: Patient with history of CAD s/p NSTEMI with stenting. She is compliant with her medications. Denies chest pain. Mildly elevated troponin at 24.6. No ischemic EKG changes -Telemetry monitoring -Trend troponin to peak -Continue home Plavix, Atorvastatin, Metoprolol -Hold Entresto in setting of Cr elevation (8) Ulcerative colitis: Plan: Ulcerative colitis - patient reports stable symptoms -Continue Mesalamine -Continue Prednisone- 20mg daily until 01/14 then 15mg daily (9) Coronary artery disease: Plan: CAD - no chest pain CAD status post multiple stents, Done last year -Hold Plavix in view of current GI bleed -Continue Atorvastatin, Metoprolol -Holding Entresto in setting of Cr elevation (10) Pulmonary emboli: Plan: Had PE In the past 3 months Continue to hold apixaban in view of bleeding Plan Continue to monitor in the hospital For colonoscopy on Wednesday Admission and Anticipated Discharge Date Admission Date: January 13, 2024 Subjective Patient seen and examined, still having bloody liquid bowel movements, Now with some nausea Review of Systems Review of Systems: All systems reviewed are negative, apart from the ones contained in the history. Physical Exam Physical Exam: The patient is awake, alert and oriented 3, well developed and well nourished, normocephalic and atraumatic, lying in bed and in no acute distress. HEENT--PERRL, EOMI, mucous membranes and oropharynx mildly dry Neck--supple. No JVD. No bruits. Thyroid normal, trachea midline, no adenopathy. Heart--normal S1 and S2. No murmurs, rubs or gallops. Lungs--clear bilaterally, no respiratory distress, no accessory muscle use. Abdomen--normal bowel sounds and soft. Extremities--no cyanosis or clubbing. No edema. Dermatologic--normal skin turgor, normal color, no abnormal lymph nodes, no rash. Neurologic--cranial nerves II through XII grossly intact. Rheumatologic--normal range of motion. Psychiatric--normal affect. Results & Data Results & Data Vital Signs (Past 12 Hours) Vital Signs Temp Pulse Pulse Resp BP BP Pulse Ox 01/18/24 11:48 124 H 01/18/24 10:52 135 H 88/61 L 01/18/24 07:36 97.9 F 140 H 18 111/75 96 01/18/24 07:22 70 01/18/24 06:42 92 H 122/88 01/18/24 06:32 119 H 124/92 01/18/24 06:20 119 H 124/92 01/18/24 06:16 125 H 119/89 01/18/24 06:15 167 H 140/97 01/18/24 06:10 167 H 140/97 01/18/24 06:05 153 H 20 140/97 96 01/18/24 06:03 166 H 20 143/96 H 97 O2 Del Method 01/18/24 11:48 01/18/24 10:52 01/18/24 07:36 Room Air 01/18/24 07:22 01/18/24 06:42 01/18/24 06:32 01/18/24 06:20 01/18/24 06:16 01/18/24 06:15 01/18/24 06:10 01/18/24 06:05 Room Air 01/18/24 06:03 Room Air PG Care Time/CCT Total # of Minutes Spent Total Time Spent with Patient: Total time spent is greater than 50% in coordination of care (as documented) at patient's floor/unit and/or counseling patient: Coding Level of Care Code 56257 SUB INP/OBS CARE 2/35MIN Diagnoses Afib I48.91 Lyme disease A69.20 GI bleed K92.2 Acute blood loss anemia D62 Parainfluenza virus infection B34.8 CHLOE (acute kidney injury) N17.9 Elevated troponin R79.89 Ulcerative colitis K51.90 Coronary artery disease I25.10 Pulmonary emboli I26.99 Time Spent (min) 35
--- NOTE | 2024-01-18 13:39 | Cardiology Progress Note ---
Date of Service January 18, 2024 Assessment & Plan (1) New onset atrial fibrillation: (2) Hypomagnesemia: (3) Hypokalemia: Plan 63-year-old woman with history of CAD (JESSE x 25 Nov 2022), ischemic cardiomyopathy (EF 35-40% October 2023), chronic left bundle branch block, chronically anticoagulated for unprovoked pulmonary embolism October 2023, who developed new onset atrial fibrillation this morning in the context of electrolyte abnormalities (hypomagnesemia and hypokalemia). Agree with repletion of electrolytes and intermittent doses of IV beta-molly for acute rate control. Since her blood pressure (by automated cuff) is on the low end and her atrial fibrillation is persisting, agree with initiating IV amiodarone initially for rate control with less impact on blood pressure than metoprolol, ultimately in hopes of returning to sinus rhythm. She is already chronically anticoagulated for pulmonary embolism, so resumption of apixaban upon discharge will cover her for any recurrence of atrial fibrillation. Would hold anticoagulation currently since she is awaiting colonoscopy tomorrow, if her atrial fibrillation persists for more than 24 hours, could restart apixaban tomorrow after her colonoscopy. Even if she remains in atrial fibrillation, as long as her rate is controlled and blood pressure normotensive she could proceed to colonoscopy tomorrow. Hopefully, through electrolyte repletion and IV amiodarone, she will return to sinus rhythm overnight. Will continue to follow from a cardiology perspective. Admission and Anticipated Discharge Date Admission Date: January 13, 2024 Subjective Patient did well overnight but developed atrial fibrillation early this morning. Initial rate was in the 170 bpm range, after 3 doses of metoprolol tartrate (5 mg each) rate declined to 130 bpm. She felt no symptoms initially, but when she got up to walk to the bathroom she felt nauseous and lightheaded, symptoms resolved when she returned to bed. BP has been low normal to mildly hypotensive. No confusion or other evidence of hypoperfusion. At the time of my evaluation this afternoon, she was comfortable in bed with no somatic complaints. Physical Exam Physical Exam: No distress. Afebrile. BP 88/61 mmHg by automated cuff. Brisk radial pulse. Pulse 124 bpm and irregular. Skin: no ecchymoses or generalized lesions. HEENT: unremarkable. Neck: JVP at the clavicle at 90 degrees, no carotid bruits. Lungs: clear. Cardiac: Irregular/tachycardic rhythm, normal S1-2, no murmur. Abdomen: benign. Extremities: no edema, pulses intact. Neurologic: normal affect and conversation, nonfocal. Results & Data Laboratory Results Labs from this morning with potassium 3.4, BUN 15, creatinine 1.01. Magnesium was 1.6. PG Care Time/CCT Total # of Minutes Spent Total Time Spent with Patient: Total time spent is greater than 50% in coordination of care (as documented) at patient's floor/unit and/or counseling patient: Coding Level of Care Code 17271 SUB INP/OBS CARE 3/50MIN Diagnoses New onset atrial fibrillation I48.91 Hypomagnesemia E83.42 Hypokalemia E87.6
[2024-01-18] MEDS: AMIODARONE / D5W 150 MG/100 ML BAG IV STA (14:30)
[2024-01-18] MEDS: AMIODARONE / D5W 360 MG/200 ML BAG IV SCH ×2 (14:32→20:32)
[2024-01-18] MEDS: LAVAGE SOLUTION 4000ML PO ONE (18:47)
[2024-01-19 08:04] LABS: Hematocrit (blood only) 33.4 % (37.0-47.0); Hemoglobin 10.9 g/dl (12.0-16.0); Mean Corpuscular Hemoglobin 29.2 pg (25.0-34.0); Mean Corpuscular Hgb Conc 32.6 g/dL (32.0-36.0); Mean Corpuscular Volume 89.5 fL (80.0-100.0); Mean Platelet Volume 10.4 fL (9.4-12.4); Platelet Count 160 K/uL (130-400); RDW Coefficient of Variation 12.8 % (11.5-14.5); RDW Standard Deviation 42.3 fL (36.4-46.3); Red Blood Count 3.73 M/uL (4.20-5.40); White Blood Count 5.08 K/ul (4.8-10.8)
[2024-01-19 08:32] LABS: BUN Creatinine Ratio 12.1 (10-20); Calcium 8.3 mg/dl (8.6-10.3); Est GFR (African American) 58.9 ml/min; Est GFR (Non-African American) 50.8 ml/min; Potassium 3.5 mmol/L (3.5-5.1)
[2024-01-19] MEDS: SODIUM CHLORIDE 0.9% 500 ML IV SCH (09:09)
--- NOTE | 2024-01-19 10:13 | Gastroenterology Progress Note ---
Date of Service January 19, 2024 Assessment & Plan (1) Acute blood loss anemia: Plan: 63 year old female with history of CAD s/p NSTEMI s/p placement of coronary stents x 3, RADHA, PE on Eliquis and plavix admitted with Lyme and parainfluenza - GI was asked to evaluate for rectal bleeding. She has history of UC, last colonoscopy 10+ years ago but she now endorses loose stools with blood for about one week time. She needs colonoscopy for disease staging and evaluation of rectal bleeding. Maintain NPO status for colonoscopy today Trend H&H Monitor and document stools Continue with prednisone taper for now Continue with oral mesalamine for now Will contact office to start authorization for biologic Continue to hold AC Thank you for allowing us to participate in the care of this patient. Please call with any acute changes, questions or concerns. Please see addendum below with additional recommendation from my supervising physician. Admission and Anticipated Discharge Date Admission Date: January 13, 2024 Supervising Physician Co-Signing Physician Notes I examined the patient and reviewed patient's chart , laboratory data and imaging studies. I agree with with assessment and plan of care as suggested by advanced practice provider Subjective Pt was seen and evaluated, chart reviewed. Tolerated prep, clear/yellow stools. Review of Systems Review of Systems: All other findings negative except as noted in HPI. Physical Exam Constitutional: WD/WN, vitals as above Gastrointestinal (Abdomen): Percussion/Palpation: abdomen soft; abdomen nontender, no guarding and abdomen not rigid Results & Data Results & Data Vital Signs (Past 12 Hours) Vital Signs Temp Pulse Resp BP BP Pulse Ox O2 Del Method 01/19/24 07:49 36.4 C L 71 21 122/84 93 Room Air 01/19/24 02:32 36.8 C 76 18 133/77 96 Room Air 01/18/24 22:45 36.8 C 78 18 134/83 95 Room Air Laboratory Results 01/19/24 Range/Units 07:47 WBC 5.08 (4.8-10.8) K/ul RBC 3.73 L (4.20-5.40) M/uL Hgb 10.9 L (12.0-16.0) g/dl Hct 33.4 L (37.0-47.0) % MCV 89.5 (80.0-100.0) fL MCH 29.2 (25.0-34.0) pg MCHC 32.6 (32.0-36.0) g/dL RDW Std Deviation 42.3 (36.4-46.3) fL RDW Coeff of Essie 12.8 (11.5-14.5) % Plt Count 160 (130-400) K/uL MPV 10.4 (9.4-12.4) fL Sodium 137 (136-145) mmol/L Potassium 3.5 (3.5-5.1) mmol/L Chloride 105 (98-107) mmol/L Carbon Dioxide 23 (21-32) mmol/L Anion Gap 9 (3-11) BUN 14 (6-23) mg/dl Creatinine 1.16 (0.6-1.2) mg/dl Est Cr Clr Drug Dosing 71.0 ml/min Est GFR ( Amer) 58.9 ml/min Est GFR (Non-Af Amer) 50.8 ml/min BUN/Creatinine Ratio 12.1 (10-20) Glucose 90 (70-99(Fasting)) mg/dl Calcium 8.3 L (8.6-10.3) mg/dl PG Care Time/CCT Total # of Minutes Spent Total Time Spent with Patient: Total time spent is greater than 50% in coordination of care (as documented) at patient's floor/unit and/or counseling patient: Coding Level of Care Code None Diagnoses Acute blood loss anemia D62
--- NOTE | 2024-01-19 11:39 | Hospitalist Progress Note ---
Date of Service January 19, 2024 Assessment & Plan (1) Afib: Plan: Patient went into A-fib with RVR On 01/18/2024 Received Lopressor and metoprolol, Started on amiodarone infusion with a bolus Heart rate now under better control Appreciate cardiology commendations (2) GI bleed: Plan: For colonoscopy today Bowel prep has been okay Patient still passing some blood-tinged stool (3) Lyme disease: Plan: Patient with history of tick bite approximately one month ago. Lyme testing is POSITIVE in the ER. Possible cause for patient's diffuse joint pain that occurred prior to arrival. -Confirmatory panel pending -Still complains of some mild joint pains -Anaplasmosis pending -Doxycycline 100mg IV BID -Will transition to oral prior to discharge (4) Acute blood loss anemia: Plan: Hemoglobin stable, 11 today Transfuse if hb <7 (5) Parainfluenza virus infection: Plan: Patient reports cough ongoing for the last several days. Biofire panel POSITIVE for parainfluenza virus. -Droplet precautions (6) CHLOE (acute kidney injury): Plan: Now resolved (7) Elevated troponin: Plan: No ischemic changes most likely due to demand ischemia Troponin is now back to within normal limits (8) Ulcerative colitis: Plan: Ulcerative colitis - patient reports stable symptoms -Continue Mesalamine -Continue Prednisone- 20mg daily until 01/14 then 15mg daily -For colonoscopy today 01/19/2024 (9) Coronary artery disease: Plan: CAD - no chest pain CAD status post multiple stents, Done last year -Hold Plavix in view of current GI bleed -Continue Atorvastatin, Metoprolol -Holding Entresto in setting of Cr elevation (10) Pulmonary emboli: Plan: Had PE In the past 3 months Continue to hold apixaban in view of bleeding Plan Continue to monitor in the hospital For colonoscopy on 01/19/2024 Admission and Anticipated Discharge Date Admission Date: January 13, 2024 Subjective Patient seen and examined, looking forward to colonoscopy today. Feels much better, no nausea or vomiting heart rate is now under better control. Review of Systems Review of Systems: All systems reviewed are negative, apart from the ones contained in the history. Physical Exam Physical Exam: The patient is awake, alert and oriented 3, well developed and well nourished, normocephalic and atraumatic, lying in bed and in no acute distress. HEENT--PERRL, EOMI, mucous membranes and oropharynx mildly dry Neck--supple. No JVD. No bruits. Thyroid normal, trachea midline, no adenopathy. Heart--normal S1 and S2. No murmurs, rubs or gallops. Lungs--clear bilaterally, no respiratory distress, no accessory muscle use. Abdomen--normal bowel sounds and soft. Extremities--no cyanosis or clubbing. No edema. Dermatologic--normal skin turgor, normal color, no abnormal lymph nodes, no rash. Neurologic--cranial nerves II through XII grossly intact. Rheumatologic--normal range of motion. Psychiatric--normal affect. Results & Data Results & Data Vital Signs (Past 12 Hours) Vital Signs Temp Pulse Resp BP BP Pulse Ox O2 Del Method 01/19/24 07:49 97.5 F L 71 21 122/84 93 Room Air 01/19/24 02:32 98.2 F 76 18 133/77 96 Room Air PG Care Time/CCT Total # of Minutes Spent Total Time Spent with Patient: Total time spent is greater than 50% in coordination of care (as documented) at patient's floor/unit and/or counseling patient: Coding Level of Care Code 08687 SUB INP/OBS CARE 2/35MIN Diagnoses Afib I48.91 GI bleed K92.2 Lyme disease A69.20 Acute blood loss anemia D62 Parainfluenza virus infection B34.8 CHLOE (acute kidney injury) N17.9 Elevated troponin R79.89 Ulcerative colitis K51.90 Coronary artery disease I25.10 Pulmonary emboli I26.99 Time Spent (min) 35
--- NOTE | 2024-01-19 15:29 | Anesthesiology Consultation ---
Date of Service January 19, 2024 Assessment & Plan Chart Review Chart Review: Acceptable Risk for Surgery and Patient NOT seen in Pre Admission Testing Consults Requested none ASA ASA4 Proposed Anesthesia Anesthesia Type: MAC History Surgery Operation Date: 01/19/24 16:30 Proposed Procedures p Colonoscopy Dr. Duron - Marvin Duron MD Height/Weight Height: 5 ft 6 in Weight: 131.9 kg Allergies Allergy/AdvReac Type Severity Reaction Status Date / Time No Known Allergies Allergy Verified 11/22/23 16:36 Medications Home Medications Medication Instructions Recorded Confirmed Last Taken acetaminophen 500 mg tablet 1,000 mg PO DIRECTED PRN 12/03/22 01/12/24 12/03/22 06:50 (Tylenol Extra Strength) PAIN/FEVER nitroglycerin 0.4 mg sublingual 0.4 mg sublingual UD PRN chest 12/06/22 01/12/24 Unknown tablet (Nitrostat) pain #1 btl atorvastatin 40 mg tablet 40 mg PO QAM #90 tabs 06/03/23 01/12/24 09/07/23 clopidogrel 75 mg tablet 75 mg PO QAM #90 tabs 06/03/23 01/12/24 09/07/23 spironolactone 25 mg tablet 25 mg PO DAILY #90 tabs 09/14/23 11/19/23 Unknown cholecalciferol (vitamin D3) 1,250 50,000 unit PO WEEKLY 8 weeks #8 10/26/23 01/12/24 Unknown mcg (50,000 unit) capsule caps prednisone 10 mg tablet 5 mg PO QAM 11/08/23 11/22/23 Unknown peg 3350-electrolytes 236 240 ml PO Q10M #4,000 mL 11/19/23 11/22/23 Unknown gram-22.74 gram-6.74 gram-5.86 gram solution (GaviLyte-G) metoprolol succinate 25 mg 25 mg PO DAILY #30 tabs 11/22/23 01/12/24 Unknown tablet,extended release 24 hr sacubitril 24 mg-valsartan 26 mg 1 tab PO BID #60 tabs 11/22/23 01/12/24 Unknown tablet (Entresto) apixaban 5 mg (74 tabs) tablets in 5 mg PO BID #180 ea 12/13/23 01/12/24 Unknown a dose pack (Eliquis) mesalamine 1.2 gram tablet,delayed 2.4 g (2 x 1.2 gram) PO BID #120 12/14/23 01/12/24 Unknown release tabs prednisone 10 mg tablet 20 mg PO DAILY 01/12/24 01/12/24 Unknown Active Medications Generic Name Dose Route Start Last Admin Trade Name Freq PRN Reason Stop Dose Admin Acetaminophen 650 mg 01/12/24 05:00 01/17/24 07:19 Acetaminophen 325 Mg Tab PO 02/11/24 04:59 650 mg Q4H PRN Administration pain/fever Apixaban 5 mg 01/12/24 09:00 01/13/24 21:54 Apixaban 5 Mg Tablet PO 02/11/24 08:59 5 mg BID SALENA Administration Atorvastatin Calcium 40 mg 01/12/24 09:00 01/19/24 09:47 Atorvastatin 40 Mg Tab PO 02/11/24 08:59 40 mg QAM SALENA Administration Clopidogrel Bisulfate 75 mg 01/12/24 09:00 01/15/24 08:33 Clopidogrel Bisulfate 75 Mg Tab PO 02/11/24 08:59 Not Given QAM SALENA Doxycycline Hyclate 100 mg/ 100 mls @ 50 mls/hr 01/12/24 21:00 01/19/24 11:14 Dextrose IV 01/22/24 05:19 Infused BID SALENA Infusion Amiodarone HCl/Dextrose 360 mg in 200 mls @ 16.667 mls/hr 01/18/24 19:00 01/19/24 08:33 Nexterone / D5w IV 02/17/24 18:59 0.5 mg/min .Q12H SALENA 16.7 mls/hr Administration 0.5 MG/MIN Sodium Chloride 500 mls @ 15 mls/hr 01/19/24 07:30 01/19/24 09:29 Nss IV 01/20/24 07:29 0 mls/hr .Q24H SALENA Infusion Mesalamine 2.4 gm 01/12/24 21:00 01/19/24 09:09 Mesalamine 1.2 Gm Tabdr PO 02/11/24 20:59 2.4 gm BID SALENA Administration Metoprolol Succinate 25 mg 01/12/24 09:00 01/19/24 09:47 Metoprolol Succ 25mg Ext Rel Tab PO 02/11/24 08:59 25 mg DAILY SALENA Administration Ondansetron HCl 4 mg 01/12/24 05:00 01/18/24 09:34 Ondansetron Inj 2 Mg/Ml 2 Ml Vial IV 02/11/24 04:59 4 mg Q6H PRN Administration Nausea Prednisone 15 mg 01/15/24 09:00 01/19/24 09:47 Prednisone 5 Mg Tab PO 02/14/24 08:59 15 mg DAILY SALENA Administration Past Medical History Medical History Near syncope last episode, 11/13/23 states felt like legs just gave out, no LOC but felt like she was going to "pass out" causing the fall, will see Dr Pimentel for evaluation on 11/22/[address] p[address] Dr Hernandes 11/19/23- episodes started ~ 08/2023 History of recent fall 11/13/23 states felt like legs just gave out, no LOC but states felt like she was going to "pass out" causing fall, will see Dr Pimentel for evaluation on 11/22/[address] Hernandes 11/19/23 - episodes started ~ 08/2023 Exercise / Class Metabolic Activity III < 4 Walking/Shop/Light housework Past Family History Family History Grandmother (Maternal) Breast cancer Uncle Myocardial infarction Heart disease Father No problems noted. Mother Osteoarthritis Asthma Other Arthritis Cancer Hypertension Obstructive sleep apnea Urticaria Denies family history of Ovarian cancer Prostate cancer Colorectal cancer Past Surgical History Surgical History S/P right oophorectomy S/P coronary artery stent placement (11/2022) JESSE to RCA, JESSE x 2 to mid LAD-- S/P complete hysterectomy d/t ovarian cyst S/P cholecystectomy S/P tonsillectomy Past Anesthesia History No Hx of Anesthesia Complications and No Family Hx of Anesthesia Complications History of PONV No Hx of PONV and No Hx of Motion Sickness Social History Smoking Status: Former smoker Do You Dip or Chew Tobacco: No Hx Alcohol Use: No Hx Substance Use: No substance use type: does not use Physical Exam Vital Signs Last Vital Signs Temp 36.4 C L 01/19/24 11:05 Pulse 60 01/19/24 14:46 Resp 22 01/19/24 11:05 BP 147/95 H 01/19/24 11:05 Pulse Ox 96 01/19/24 11:05 O2 Del Method Room Air 01/19/24 11:05 Testing Laboratory Results 01/19/24 07:47 01/19/24 07:47 PT 11.1 Seconds (9.0-12.0) 01/12/24 03:16 INR 1.0 (0.9-1.1) 01/12/24 03:16 Urine Color Yellow 01/12/24 12:35 Urine Appearance Cloudy (Clear) A 01/12/24 12:35 Urine pH 5.5 (4.5-7.5) 01/12/24 12:35 Ur Specific [place] 1.016 (1.000-1.030) 01/12/24 12:35 Urine Protein 1+ (Negative) H 01/12/24 12:35 Urine Glucose (UA) Negative (Negative) 01/12/24 12:35 Urine Ketones Trace (Negative) H 01/12/24 12:35 Urine Nitrite Negative (Negative) 01/12/24 12:35 Ur Leukocyte Esterase 1+ (Negative) H 01/12/24 12:35 Urine WBC (Auto) 6-10 /hpf (0-5) H 01/12/24 12:35 Urine RBC (Auto) 0-2 /hpf (0-2) 01/12/24 12:35 U Hyaline Cast (Auto) 6-10 /lpf (0-2) H 01/12/24 12:35 U Epithel Cells (Auto) 3-5 /hpf (0-2) H 01/12/24 12:35 Urine Bacteria (Auto) 1+ (None Seen) H 01/12/24 12:35 Blood Type O Positive 01/13/24 17:15 Antibody Screen NEGATIVE 01/13/24 17:15 01/12/24 04:08 Aerobic Blood Culture - Final Blood No growth in Aerobic bottle after 5 days. Anaerobic Blood Culture - Final No growth in Anaerobic bottle after 5 days. 01/12/24 03:49 Aerobic Blood Culture - Final Blood No growth in Aerobic bottle after 5 days. Anaerobic Blood Culture - Final No growth in Anaerobic bottle after 5 days. 01/12/24 12:35 Urine Culture - Final Urine,Clean Catch More than three types of organisms present, all moderate counts mixed probable skin bonnie. No further identifications or sensitivities to follow. Electrocardiogram Date: 01/18/24 Findings: + AFIB @ (@ 122 w/ RVR) and + LBBB Echocardiogram Date: 11/08/23 EF: 35% LV Function: dysfunctional RWMA: + hypokinetic Other Findings: + LVH (mild) and + diastolic dysfunction (Grade 1) Valvular Disease: + no significant valvular disease Cardiac Catheterization Date: 12/04/22 Findings: + RCA (50-60% mid) and + LCX (50-60%) Intervention: + JESSE placed (mid RCA JESSE x 1; mid LAD JESSE x 2)
[2024-01-19] MEDS ORDERED: ePHEDrine sulfate 50 MG/ML AMP IV PRN (15:42)
[2024-01-19] MEDS ORDERED: ATROPINE SULFATE 0.1 MG/ML 10ML SYR IV PRN (15:42)
--- NOTE | 2024-01-19 16:08 | Communication Note ---
Date of Service: January 19, 2024 Colonoscopy showed universal ulcerative colitis with mucosal inflammation, ulcerations, pseudopolyps. Multiple biopsies were obtained. Recommendations: Okay to discharge from GI standpoint. Scheduled for GI office visit in one 1 week or so. To start vedolizumab. Awaiting biopsy results. Surveillance colonoscopy depending on biopsy results. Restart Eliquis, the patient is at a high risk of thromboembolic disease.
--- NOTE | 2024-01-19 16:17 | GI REPORT ---
[facility] Patient: KOFFI LEE : 1960 Sex at : Female Age: 63 Years Procedure: Colonoscopy Date: 01/19/2024 Attending Physician: Marvin Duron MD Referring MD: Referred Self; Marvin Duron MD Indications: - Personal history of ulcerative colitis Medications: - Monitored Anesthesia Care Complications: - No immediate complications. Estimated Blood Loss: - Estimated blood loss: none. Procedure: - The adult colonoscope was introduced through the anus and advanced to the cecum, identified by appendiceal orifice and ileocecal valve. - The colonoscopy was performed without difficulty. - The patient tolerated the procedure well. - The quality of the bowel preparation was good. Findings: - The digital rectal exam was normal. Pertinent negatives include no palpable rectal lesions. - Inflammation characterized by erythema, mucus, friability, pseudopolyps, erosions and serpentine ulcerations was found in a continuous and circumferential pattern from the anus to the cecum. No sites were spared. The inflammation was graded as Thomson Score 2 (moderate, with marked erythema, absent vascular pattern, friability, erosions) and graded as Thomson Score 3 (severe, with spontaneous bleeding, ulcerations) [Compared to Previous]. Two biopsies were taken every 10 cm with a cold forceps from the entire colon for ulcerative colitis surveillance. These biopsy specimens were sent to Pathology. There were multiple pseudopolyps in the cecum, ascending colon, descending colon and sigmoid. Single polyp was removed with a cold snare polypectomy from the cecum. The polyp measured about 1 cm in size. Impression: - Ulcerative colitis. Inflammation was found from the anus to the cecum. This was graded as Thomson Score 2 (moderate disease) and graded as Thomson Score 3 (severe disease). Biopsied. Recommendation: - Await pathology results. - Return to GI office in 1 week. - Patient has a contact number available for emergencies. The signs and symptoms of potential delayed complications were discussed with the patient. Return to normal activities tomorrow. Written discharge instructions were provided to the patient. Procedure Code(s): - 10875, Colonoscopy, flexible; with biopsy, single or multiple Diagnosis Code(s): - K51.90, Ulcerative colitis, unspecified, without complications CPT(R) - 2023 copyright [employer]. All Rights Reserved. The CPT codes, CCI edits and ICD codes generated are intended as suggestions and were generated based on input data. These codes are preliminary and upon coffee shop manager review may be revised to meet current compliance and payer requirements. The provider is responsible for the final determination of appropriate codes, and modifiers. Marvin Duron M.D. This document has been electronically signed. Note Initiated:01/19/2024 Note Completed:01/19/2024 4:15 PM \\[email or web address]\Results\[email or web address]\[id number]
--- NOTE | 2024-01-19 16:25 | Anesthesiology Progress Note ---
Date of Service January 19, 2024 Anesthesia Post Procedure Vital Signs Vital Signs: Temp Pulse Pulse Resp BP BP Pulse Ox 01/19/24 16:14 65 16 94/55 L 99 01/19/24 15:26 36.5 C 70 18 139/91 96 01/19/24 14:46 60 01/19/24 11:05 36.4 C L 73 22 147/95 H 96 01/19/24 07:49 36.4 C L 71 21 122/84 93 01/19/24 02:32 36.8 C 76 18 133/77 96 01/18/24 22:45 36.8 C 78 18 134/83 95 01/18/24 19:17 36.6 C 74 18 133/89 99 O2 Del Method 01/19/24 16:14 Room Air 01/19/24 15:26 Room Air 01/19/24 14:46 01/19/24 11:05 Room Air 01/19/24 07:49 Room Air 01/19/24 02:32 Room Air 01/18/24 22:45 Room Air 01/18/24 19:17 Room Air Pain Intensity Head: Pain Intensity: 4 Transfer of Care Handoff Completed per policy Notes Mental Status: alert / awake / arousable and participated in evaluation Patient Amnestic to Procedure: Yes Nausea / Vomiting: adequately controlled Pain: adequately controlled Airway Patency, RR, SpO2: stable & adequate BP & HR: stable & adequate Hydration State: stable & adequate Anesthetic Complications: no major complications apparent and Pt Satisfied with anesthetic care
[2024-01-19] MEDS: fentaNYL citrate PF 100 MCG/2 ML VIAL ONE ×2 (17:46→17:47)
[2024-01-19] MEDS: KETAMINE HCL 10MG/ML SYR ONE (17:47)
[2024-01-19] MEDS: PROPOFOL IV EMULSION 10 MG/ML 20 ML VIAL IV ONE ×2 (17:47)
[2024-01-19] MEDS: MIDAZOLAM HCL 1 MG/ML 2ML VIAL ONE ×2 (17:47)
[2024-01-20 08:58] LABS: Hematocrit (blood only) 33.4 % (37.0-47.0); Hemoglobin 10.9 g/dl (12.0-16.0); Mean Corpuscular Hemoglobin 29.5 pg (25.0-34.0); Mean Corpuscular Hgb Conc 32.6 g/dL (32.0-36.0); Mean Corpuscular Volume 90.5 fL (80.0-100.0); Mean Platelet Volume 10.3 fL (9.4-12.4); Platelet Count 196 K/uL (130-400); RDW Coefficient of Variation 12.7 % (11.5-14.5); Red Blood Count 3.69 M/uL (4.20-5.40); White Blood Count 6.16 K/ul (4.8-10.8)
[2024-01-20 09:20] LABS: BUN Creatinine Ratio 11.8 (10-20); Calcium 8.3 mg/dl (8.6-10.3); Creatinine Clr Calc Pharmacy 69.2 ml/min; Est GFR (African American) 57.1 ml/min; Est GFR (Non-African American) 49.2 ml/min; Potassium 3.3 mmol/L (3.5-5.1)
--- NOTE | 2024-01-20 09:40 | Cardiology Progress Note ---
Date of Service January 20, 2024 Assessment & Plan (1) New onset atrial fibrillation: (2) Hypokalemia: (3) Coronary artery disease: Plan New onset atrial fibrillation with identifiable risk factors of hypokalemia and hypomagnesemia. Since she remains hypokalemic, would add oral potassium supplement to her outpatient regimen. Magnesium not checked today, but would consider adding magnesium chloride oral supplement to her regimen as well. Recommend increasing metoprolol succinate from 25 mg to 50 mg daily rather than placing her on amiodarone longer-term in order to diminish risk of side effects and patient with identifiable precipitant for her atrial fibrillation. As previously noted, she is resuming anticoagulation given history of pulmonary embolism, this will cover her for any recurrence of atrial fibrillation as well. Would NOT restart clopidogrel given her recent bleeding and the fact that she is now over a year out from her drug-eluting stents. Given her borderline blood pressures at times during this hospitalization would hold on Entresto as well, this could be restarted as an outpatient once her blood pressure is reassessed on higher dose of beta-molly. Admission and Anticipated Discharge Date Admission Date: January 13, 2024 Subjective Uneventful night. No atrial fibrillation yesterday or today. She feels well and will be discharged home today. Colonoscopy showed GI blood loss was from ulcerative colitis. She will be resuming her apixaban. Physical Exam Physical Exam: No distress. BP 144/87 mmHg. Pulse 75 bpm and regular. Skin: no ecchymoses or generalized lesions. HEENT: unremarkable. Neck: JVP at the clavicle at 90 degrees, no carotid bruits. Lungs: clear. Cardiac: regular rhythm, normal S1-2, no murmur. Abdomen: benign. Extremities: no edema, pulses intact. Neurologic: normal affect and conversation, nonfocal. Results & Data Laboratory Results Potassium 3.3, BUN 14, creatinine 1.19. PG Care Time/CCT Total # of Minutes Spent Total Time Spent with Patient: Total time spent is greater than 50% in coordination of care (as documented) at patient's floor/unit and/or counseling patient: Coding Level of Care Code 82259 SUB INP/OBS CARE 2/35MIN Diagnoses New onset atrial fibrillation I48.91 Hypokalemia E87.6 Coronary artery disease I25.10
--- NOTE | 2024-01-20 12:15 | Discharge Summary ---
Date of Service January 20, 2024 Admission HPI Per Admitting Provider Elaine Vargas is a pleasant 63yo female with history of CAD s/p NSTEMI s/p placement of coronary stents x 3, RADHA, Ulcerative Colitis and prior PE on Eliquis anticoagulation presenting with acute onset of chills. Patient has had a slight productive cough for the last couple of days. This evening around 17:30 she developed severe chills and was unable to get warm. Later in the evening she felt very warm and developed diffuse body pain and soreness in her joints as well as nausea. She did not have a fever. Denies abdominal pain, vomiting. She has chronic diarrhea with no acute change. No additional complaints. She did have a tick bite a month ago but did not develop a rash. She recently started on Mesalamine for management of her Ulcerative Colitis She is on a slow prednisone taper - is currently on 20mg daily until Wednesday when she is decreasing to 15mg daily Principal Diagnosis Lyme disease, ulcerative colitis, atrial fibrillation Discharge Exam The patient is awake, alert and oriented 3, well developed and well nourished, normocephalic and atraumatic, lying in bed and in no acute distress. HEENT--PERRL, EOMI, mucous membranes and oropharynx mildly dry Neck--supple. No JVD. No bruits. Thyroid normal, trachea midline, no adenopathy. Heart--normal S1 and S2. No murmurs, rubs or gallops. Lungs--clear bilaterally, no respiratory distress, no accessory muscle use. Abdomen--normal bowel sounds and soft. Extremities--no cyanosis or clubbing. No edema. Dermatologic--normal skin turgor, normal color, no abnormal lymph nodes, no rash. Neurologic--cranial nerves II through XII grossly intact. Rheumatologic--normal range of motion. Psychiatric--normal affect. Discharge Data Allergies Allergy/AdvReac Type Severity Reaction Status Date / Time No Known Allergies Allergy Verified 11/22/23 16:36 Consultations 01/12/24 04:46 ED Decision to Admit Stat 01/13/24 15:15 Consult Gastroenterology Routine 01/14/24 07:50 Consult Cardiology Routine Procedures Performed Operation Date: 01/19/24 16:30 Actual Procedures p Colonoscopy Polypectomy - Marvin Duron MD Hospital Course (1) Afib: Patient went into A-fib with RVR On 01/18/2024 Received Lopressor and metoprolol, initially Started on amiodarone infusion with a bolus Heart rate now under better control, She has gone back to sinus rhythm No need for p.o. amiodarone upon discharge according to cardiology Will just increase her home dose of metoprolol from 25 mg to 50 mg Continue anticoagulation for her PE, however stop Plavix (2) GI bleed: Colonoscopy showed evidence of active ulcerative colitis Plan is follow-up with GI outpatient to start a new biologic (3) Lyme disease: Patient with history of tick bite approximately one month ago. Lyme testing is POSITIVE in the ER. Possible cause for patient's diffuse joint pain that occurred prior to arrival. -Confirmatory panel pending -Still complains of some mild joint pains -Anaplasmosis pending -Doxycycline 100mg IV BID -Transition to p.o. doxycycline 100 mg twice daily for 7 more days to make a total of 14 days (4) Acute blood loss anemia: Hemoglobin stable, 11 today Transfuse if hb <7 (5) Parainfluenza virus infection: Patient reports cough ongoing for the last several days. [employer] panel POSITIVE for parainfluenza virus. -Droplet precautions (6) CHLOE (acute kidney injury): Now resolved (7) Elevated troponin: No ischemic changes most likely due to demand ischemia Troponin is now back to within normal limits (8) Ulcerative colitis: Ulcerative colitis - patient reports stable symptoms -Continue Mesalamine -Continue Prednisone- 20mg daily until 01/14 then 15mg daily -Colonoscopy done, showed active disease Follow-up GI outpatient in 1 week (9) Coronary artery disease: CAD - no chest pain CAD status post multiple stents, Done last year -Hold Plavix in view of current GI bleed -Continue Atorvastatin, Metoprolol Per cardiology, will discontinue Plavix since patient already on Xarelto now and he has been more than a year since her cath and stent. Also discontinue Entresto given increased dose of metoprolol. Follow-up cardiology to reevaluate her blood pressure and the need to see if we need to reintroduce Entresto (10) Pulmonary emboli: Had PE In the past 3 months Continue to hold apixaban in view of bleeding Plan Discharge home Total Time Total Time Spent Total Time Spent (In Minutes): 35 Discharge Plan Discharge Items Patient Disposition: Home - Self-Care Reason For Visit: CHLOE, PARAINFLUENZA VIRUS Discharge Diagnosis: lymes, parainfluenza, ulceratice colitis Activity: Resume your previous activity Non-emergency contact: Primary Care Provider and Corrections Identification Technician Call non-emergency contact if: you have any medication questions Follow-up/Referrals: Phuong Hernandes DO [Primary Care Provider] - 02/04/24 10:00 am (with CRNP. Umer ) Diet: Regular Addtl Attending Provider Instructions: please make appointment to follow up with your Corrections Identification Technician in 1 week. Also stop Plavix according to cardiology due to your tendency for bleeding Pending Studies at Discharge: No Stand-Alone Forms: My eLama, Smoking Cessation Medications and DC Order Prescriptions: New metoprolol succinate 50 mg tablet extended release 24 hr 50 mg PO DAILY Qty: 30 0RF doxycycline hyclate 100 mg capsule 100 mg PO BID 7 Days Qty: 14 0RF Continued atorvastatin 40 mg tablet 40 mg PO QAM Qty: 90 3RF cholecalciferol (vitamin D3) 1,250 mcg (50,000 unit) capsule 50,000 unit PO WEEKLY 56 Days Qty: 8 0RF peg 3350-electrolytes [GaviLyte-G] 236-22.74-6.74 -5.86 gram recon soln 240 ml PO Q10M Qty: 4000 0RF Rx Instructions: until fecal effluent is clear Eliquis 5 mg (74 tabs) tablets,dose pack 5 mg PO BID Qty: 180 0RF Rx Instructions: 5 mg twice daily mesalamine 1.2 gram tablet,delayed release (DR/EC) 2.4 g PO BID Qty: 120 5RF spironolactone 25 mg tablet 25 mg PO DAILY Qty: 90 3RF Hold Instructions: d/t UC/dehydration acetaminophen [Tylenol Extra Strength] 500 mg Tablet 1,000 mg PO DIRECTED PRN (Reason: PAIN/FEVER) nitroglycerin [Nitrostat] 0.4 mg Tablet, Sublingual 0.4 mg sublingual UD PRN (Reason: chest pain) Qty: 1 0RF Rx Instructions: Take 1 tablet if you have chest discomfort or shoulder pain, sit and rest the pain does not resolve report to emergency department prednisone 10 mg tablet 5 mg PO QAM prednisone 10 mg tablet 20 mg PO DAILY Held Entresto 24-26 mg tablet 1 tab PO BID Qty: 60 6RF Hold Instructions: Resume on 01/27/24. please dont resume until you see your PCP or cardiology to evaluate how you tolerate the new dose of metoprolol Discontinued clopidogrel 75 mg tablet 75 mg PO QAM Qty: 90 3RF metoprolol succinate 25 mg tablet extended release 24 hr 25 mg PO DAILY Qty: 30 6RF Discharge Orders: Discharge Order (Routine); Ordered 01/20/24 Ordered By: Dong Chinchilla Admission Data Admit Date/Time: 01/13/24 14:12 Attending Provider: Dong Chinchilla Admit Provider: Susannah Bender Primary Care Provider: Phuong Hernandes Other Providers: Susannah Bender; Marvin Duron; Deangelo Back Other Interventions: Discharge Summary Assessment (RN) Last Done: 01/20/24 10:35 Coding Level of Care Code 93633 INP/OBS DISCH >30 MIN Diagnoses Afib I48.91 GI bleed K92.2 Lyme disease A69.20 Acute blood loss anemia D62 Parainfluenza virus infection B34.8 CHLOE (acute kidney injury) N17.9 Elevated troponin R79.89 Ulcerative colitis K51.90 Coronary artery disease I25.10 Pulmonary emboli I26.99 Time Spent (min) 35
== END 2024-01-20 13:08 | disposition home or self-care (01) | DRG 386 ==
LOC: ED 03:09 → EDINP 03:09 → SUATTDRO 04:50 → 2W 05:01 → 2S 01-18 08:29